=== PATIENT | female | born 1990 | race Caucasian/White ===

== ENCOUNTER → 2022-05-04 11:03 | Outpatient (BNVA) | payer BC, SELFPAY | PROVIDERS: Family Provider Family Medicine; PCP Family Medicine; Visit Provider Obstetrics & Gynecology | DX: N93.9 Abnormal uterine and vaginal bleeding, unspecified (principal) | CPT/HCPCS: 81025; 88305 ==

== ENCOUNTER 2022-05-17 06:54 | Outpatient (CLI) | payer BC, MEDICAID, SELFPAY ==
--- NOTE | 2022-05-17 07:00 | US_ITS ---
WS: [id number] TRANSABDOMINAL PELVIC AND TRANSVAGINAL PELVIC ULTRASOUND HISTORY: N93.9 - Abnormal uterine and vaginal bleeding, unspecified COMPARISON: None available. Uterus: 8.1 cm x 4.4 cm x 3.7 cm. Normal size anteverted uterus. No fibroid or mass. Endometrium: 0.6 cm. Normal size endometrium. No increased vascularity. Small nabothian cysts in the cervix. Right ovary: 2.8 cm x 2.7 cm x 2.1 cm. No mass or increased vascularity. Normal vascularity. Left ovary: 2.0 cm x 1.8 cm x 1.6 cm. Normal size and vascularity. No mass. Trace free fluid in the cul-de-sac is physiologic. US/US pelvic with transvaginal IMPRESSION: 1. Normal endometrium measuring 6 mm. 2. No adnexal mass.
== END 2022-05-17 06:55 | disposition home or self-care (01) ==
LOC: RAD 06:55
PROVIDERS: PCP Family Medicine; Visit Provider Obstetrics & Gynecology
DX: N93.9 Abnormal uterine and vaginal bleeding, unspecified (principal)
CPT/HCPCS: 76830; 76856

== ENCOUNTER 2024-02-22 21:20 | Emergency (ER) | payer MEDICAID, SELFPAY ==
[2024-02-22 21:27] VITALS: BP 152/103; PULSE 91; RESP 18; TEMP 36.7
[2024-02-22 21:55] LABS: Add Urine Microscopic? YES; Bacteria Urine 1+ /hpf; Bilirubin Urine 1+ (Negative); Blood Urine 3+ (Negative); Glucose Urine UA 2+ (Normal); Ketones Urine 1+ (Negative); Leukocyte Esterase Urine 1+ (Negative); Nitrate Urine Positive (Negative); Protein Urine 3+ (Negative); RBC Urine 80-100 /hpf (0-2); Squamous Epithelial Cell Urine 0-4 /hpf (0-5); Urine Appearance Cloudy (CLEAR); Urine Color Red (Yellow); Urobilinogen Urine 1 mg/dL (Negative); pH Urine 5 (5-7)
[2024-02-22 21:56] LABS: Add Urine Culture? Yes
[2024-02-22 22:03] LABS: Basophils % 0.5 %; Eosinophils # 0.3 10^3/uL (0.0-0.8); Eosinophils % 4.2 %; Hematocrit 40.4 % (36-47); Lymphocytes # 1.4 10^3/uL (0.8-4.8); Lymphocytes % 22.7 %; Mean Corpuscular HGB Conc 33.7 g/dL (30-55); Mean Corpuscular Hemoglobin 30.7 pg (27-33); Mean Corpuscular Volume 91.2 fl (85-98); Mean Platelet Volume 9.7 fL (7.4-10.4); Monocytes # 0.4 10^3/uL (0.2-0.9); Monocytes % 6.2 %; Neutrophils # 3.95 10^3/uL (1.8-7.7); Neutrophils % 66.1 %; Nucleated Red Blood Cells % 0 %; Platelet Count 260 10^3/cmm (157-399); Red Blood Count 4.43 10^6/uL (3.85-5.65); Red Cell Distribution Width 12.7 % (12.1-15.1); White Blood Count 5.98 10^3/uL (3.29-11.43)
--- NOTE | 2024-02-22 22:07 | W.ED.ABDPA2 ---
HPI - Abdominal Pain General: Chief Complaint: Abdominal Pain Stated Complaint: Lower abd pain Time Seen by Provider: 02/22/24 21:37 Source: patient Mode of arrival: ambulatory Limitations: no limitations History of Present Illness: 33yo female presents with lower abdominal pain and heavy vaginal bleeding with passage of multiple large clots. Patient reports that she does have a history of PCOS, endometriosis, and ovarian cyst. States that her menstrual cycle did start 2 to 3 days ago and she has been passing larger than normal clots. She reports that her previous menstrual cycle was 2 months ago. She states it is not abnormal for her to have irregular cycles. She reports that she does not currently have a PLASTER MOLD MAKER and her last ultrasound was about 2 years ago. Patient also reports that she does have diabetes and is not currently taking any medications. Patient states that she has been somewhat lightheaded/dizzy with position changes, but she states she also works full-time on her feet and it may be related to that. She denies having to have previous blood transfusion, previous ablation, fever, any other concerns at this time. Associated Symptoms: Denies chills, diarrhea, fever(s) and vomiting Review of Systems Const: Denies: fever(s) or chills GI: Reports: abdominal pain; Denies: vomiting or diarrhea : Reports: change in menstrual flow; Denies: flank pain PFSH ED PFSH: Medical History Bronchitis No pertinent past medical history neghx:htn, thyroid, dvt/pe PCP: Dr. Demarco History of diabetes mellitus Abnormal uterine bleeding (AUB) Surgical History No pertinent past surgical history Family History Father Diabetes Hypertension Mother Diabetes Sister Diabetes Grandmother Breast cancer paternal Denies family history of Colon cancer Ovarian cancer Prostate cancer Heart disease Hyperlipidemia Bleeding disorder Uterine cancer Thyroid disease Stroke Social History Smoking and tobacco/nicotine status: former use of tobacco/nicotine Alcohol intake: current Alcohol intake frequency: holidays/special occasions only Substance/Drug Use: former Adopted: Yes service: No Current occupational exposures/hazards: No Current gender identity: Female Physical Exam Const: COMMON NORMALS: no acute distress and alert GENERAL APPEARANCE: cooperative ORIENTATION/CONSCIOUSNESS: Yes awake OTHER: Patient is sitting upright in a bedside chair in no acute distress. She is interactive with exam appropriately. She is able to give history with no difficulty. No family is at bedside HENMT: COMMON NORMALS: normocephalic HEAD & SCALP: normocephalic MOUTH: Normal oral and palatal mucosa present Chest: CHEST: Yes Symmetrical chest wall rise Resp: COMMON NORMALS: normal respiratory effort and clear to auscultation bilaterally EFFORT & INSPECTION: Yes able to speak in complete sentences AUSCULTATION: clear to auscultation bilaterally Cardio: COMMON NORMALS: regular rate and regular rhythm RATE: regular rate RHYTHM: regular rhythm GI: COMMON NORMALS: Soft to palpation PALPATION: Yes Soft to palpation : COMMON NORMALS: Yes no CVA tenderness BLADDER/KIDNEY EXAM: Yes no CVA tenderness Back/Pelvis: COMMON NORMALS: no CVA tenderness Extremity: COMMON NORMALS: full ROM Neuro: SENSORIUM/ORIENTATION: Yes alert Psych: COMMON NORMALS: cooperative ATTITUDE: Yes calm Course Reevaluation(s): Reevaluation #1: Discussed all findings with patient. Discussed nitrite positive urine indicative of urinary tract infection. Will proceed with treatment for UTI and ketorolac to help with pelvic pain. Patient is agreeable with plan Time: 22:55 Vital Signs: Vital signs: Vital Signs Temperature 98.1 F 02/22/24 21:27 Pulse Rate 91 02/22/24 21:27 Respiratory Rate 18 02/22/24 21:27 Blood Pressure 152/103 02/22/24 21:27 Oxygen Delivery Me thod Room Air 02/22/24 21:27 MDM - Abdominal Pain Medical Decision Making 33yo male here with heavy vaginal bleeding that started 2 to 3 days ago and is passing large clots. Patient does report that her last menstrual cycle was 2 months ago and she does have irregular cycles. She states a history of PCOS, endometriosis, and ovarian cysts. Patient does report cramping pain to the suprapubic area, consistent with her cycles. She does report that she has become somewhat lightheaded/dizzy with position changes, but is not certain if it is related to the bleeding or due to working long hours on her feet. Patient denies fever, chills, body aches, recent illness, any other concern at this time. Patient is nontoxic in appearance. Vital signs are stable. Differential diagnosis includes but is not limited to: Abnormal uterine bleeding, miscarriage, acute blood loss, endometriosis, ovarian cyst, ovarian torsion, UTI CBC is grossly unremarkable. CMP with a sodium of 135 and glucose of 261, otherwise unremarkable. UA with 2+ glucose, 3+ protein, 3+ blood, nitrite positive, 1+ leukocytes. Urine microscopy with 1+ bacteria and 5-10 white blood cells. Urine culture is currently pending. Given that the patient's hemoglobin is stable as well as the presence of a UTI to account for the increased discomfort, we are deferring the ultrasound today. Patient did receive ketorolac to help with discomfort and cefdinir to begin treatment for urinary tract infection. Discussed with patient that we would notify her if we did need to change our antibiotic. Recommend increasing fluid intake and continue to monitor symptoms. Advised to follow-up with primary care, call next week with an update of symptoms and to discuss a recheck. Recommend return to the emergency department if any rapid worsening symptoms, increasing bleeding so that they are saturating 2-3 pads an hour, onset of fever/chills/vomiting with worsening symptoms, and as needed. Patient states understanding and has no further questions or concerns at this time. Medical Records I reviewed the patient's medical records. Lab Data I reviewed the patient's lab results. 02/22/24 21:58 02/22/24 21:58 Labs/Radiology: Laboratory Results WBC 5.98 10^3/uL (3.29-11.43) 02/22/24 21:58 RBC 4.43 10^6/uL (3.85-5.65) 02/22/24 21:58 Hgb 13.60 g/dL (11.27-16.99) 02/22/24 21:58 Hct 40.4 % (36-47) 02/22/24 21:58 MCV 91.2 fl (85-98) 02/22/24 21:58 MCH 30.7 pg (27-33) 02/22/24 21:58 MCHC 33.7 g/dL (30-55) 02/22/24 21:58 RDW 12.7 % (12.1-15.1) 02/22/24 21:58 Plt Count 260 10^3/cmm (157-399) 02/22/24 21:58 MPV 9.7 fL (7.4-10.4) 02/22/24 21:58 Neut % (Auto) 66.1 % 02/22/24 21:58 Lymph % (Auto) 22.7 % 02/22/24 21:58 [place] % (Auto) 6.2 % 02/22/24 21:58 Eos % (Auto) 4.2 % 02/22/24 21:58 Baso % (Auto) 0.5 % 02/22/24 21:58 Neut # (Auto) 3.95 10^3/uL (1.8-7.7) 02/22/24 21:58 Lymph # (Auto) 1.4 10^3/uL (0.8-4.8) 02/22/24 21:58 [place] # (Auto) 0.4 10^3/uL (0.2-0.9) 02/22/24 21:58 Eos # (Auto) 0.3 10^3/uL (0.0-0.8) 02/22/24 21:58 Baso # (Auto) 0.0 10^3/uL (0.0-0.1) 02/22/24 21:58 Nucleated RBC % (auto) 0 % 02/22/24 21:58 Nucleated RBCs # 0.0 /100WBC 02/22/24 21:58 Sodium 135 mmol/L (136-145) L 02/22/24 21:58 Potassium 3.8 mmol/L (3.5-5.1) 02/22/24 21:58 Chloride 99 mmol/L (98-107) 02/22/24 21:58 Carbon Dioxide 25 mmol/L (22-29) 02/22/24 21:58 Anion Gap 14.8 (5-19) 02/22/24 21:58 BUN 9 mg/dL (6-20) 02/22/24 21:58 Creatinine 0.6 mg/dL (0.5-0.9) 02/22/24 21:58 GFR Calculation 115.1 mL/min (90-130) 02/22/24 21:58 Glucose 261 mg/dL (65-115) H 02/22/24 21:58 Calculated Osmolality 288 mOsm/kg (285-295) 02/22/24 21:58 Calcium 9.2 mg/dL (8.5-10.5) 02/22/24 21:58 Total Bilirubin 0.3 mg/dL (0.15-1.2) 02/22/24 21:58 AST 28 U/L (0-32) 02/22/24 21:58 ALT 32 U/L (0-33) 02/22/24 21:58 Alkaline Phosphatase 85 U/L (35-105) 02/22/24 21:58 Total Protein 7.3 g/dL (6.6-8.7) 02/22/24 21:58 Albumin 4.0 g/dL (3.5-5.2) 02/22/24 21:58 Globulin 3.3 g/dL (1.3-4.6) 02/22/24 21:58 Lipase 37 U/L (13-60) 02/22/24 21:58 HCG, Qual Negative (Negative) 02/22/24 21:58 Urine Color Red (Yellow) A 02/22/24 21:40 Urine Appearance Cloudy (CLEAR) A 02/22/24 21:40 Urine pH 5 (5-7) 02/22/24 21:40 Ur Specific [place] 1.030 (1.005-1.030) 02/22/24 21:40 Urine Protein 3+ (Negative) H 02/22/24 21:40 Urine Glucose (UA) 2+ (Normal) H 02/22/24 21:40 Urine Ketones 1+ (Negative) H 02/22/24 21:40 Urine Blood 3+ (Negative) H 02/22/24 21:40 Urine Nitrate Positive (Negative) H 02/22/24 21:40 Urine Bilirubin 1+ (Negative) H 02/22/24 21:40 Urine Urobilinogen 1 mg/dL (Negative) H 02/22/24 21:40 Ur Leukocyte Esterase 1+ (Negative) H 02/22/24 21:40 Urine RBC 80-100 /hpf (0-2) H 02/22/24 21:40 Urine WBC 5-10 /hpf (0-5) H 02/22/24 21:40 Ur Squamous Epith Cells 0-4 /hpf (0-5) H 02/22/24 21:40 Amorphous Sediment Not Reportable 02/22/24 21:40 Urine Bacteria 1+ /hpf (NONE) H 02/22/24 21:40 No radiology studies performed this visit Discharge Plan Discharge Patient Disposition: Home Clinical Impression: Acute cystitis with hematuria, Abnormal uterine bleeding (AUB) Condition: Stable Prescriptions: New ketorolac 10 mg tablet 10 mg PO Q6H PRN (Reason: pain) 5 Days Qty: 20 0RF cefdinir 300 mg capsule 300 mg PO BID Qty: 7 0RF Discontinued ondansetron HCl 8 mg tablet 8 mg PO Q12H PRN (Reason: nausea and vomiting) Qty: 7 0RF Discharge Orders: Discharge ED (Routine); Ordered 02/22/24 Ordered By: Marin Salomon Referrals: Mariam Wagner MD [Primary Care Provider] - Discharge Diet: Usual diet Discharge Activity: Resume usual activity Patient Instructions: Abnormal (Dysfunctional) Uterine Bleeding (ED), Urinary Tract Infection in Women (ED) Activity Restrictions/Additional Instructions: Your urine is concerning for urinary tract infection. Cefdinir has been sent to the pharmacy to begin treatment for the UTI. You did receive your first dose while in the emergency department Ketorolac has been sent to your pharmacy to help with pain from the UTI and the crampy uterine pain. This medication does not impede you in any way. You may still drive and take care of your children as needed Increase your fluid intake and continue to monitor your symptoms Follow-up with your doctor for recheck in about a week for the urinary tract infection and ER follow-up, sooner if needed Return to the emergency department if any rapid worsening symptoms, worsening vaginal bleeding, onset of fever/chills/vomiting, and as needed Stand Alone Forms: Work/School Release Coding Level of Care Code ED Relief Driller for Estephania Jack
[2024-02-22 22:17] LABS: HCG, Serum Qual Negative (Negative)
[2024-02-22 22:23] LABS: Alanine Aminotransferase 32 U/L (0-33); Alkaline Phosphatase 85 U/L (35-105); Anion Gap 14.8 (5-19); Aspartate Amino Transferase 28 U/L (0-32); Blood Urea Nitrogen 9 mg/dL (6-20); Calcium 9.2 mg/dL (8.5-10.5); Carbon Dioxide 25 mmol/L (22-29); Chloride 99 mmol/L (98-107); Creatinine Clr Calc Pharmacy 182.7775; Globulin 3.3 g/dL (1.3-4.6); Glomerular Filtration Rate 115.1 mL/min (90-130); Glucose 261 mg/dL (65-115); Lipase 37 U/L (13-60); Osmolality Calculated 288 mOsm/kg (285-295); Potassium 3.8 mmol/L (3.5-5.1); Sodium 135 mmol/L (136-145); Total Bilirubin 0.3 mg/dL (0.15-1.2); Total Protein 7.3 g/dL (6.6-8.7)
[2024-02-22] MEDS: cefdinir 300 MG CAPSULE PO (23:15)
[2024-02-22] MEDS: ketorolac 30 mg/mL INJ 15 MG IVP (23:15)
== END 2024-02-23 00:15 | disposition home or self-care (01) ==
PROVIDERS: Emergency Medicine; Emergency Provider Nurse Practitioner; PCP Family Medicine
DX: N93.9 Abnormal uterine and vaginal bleeding, unspecified (principal); N30.01 Acute cystitis with hematuria; Z87.891 Personal history of nicotine dependence
CPT/HCPCS: 80053; 81001; 83690; 84703; 85025; 87086; 96374; 99284; J1885

== ENCOUNTER → 2024-05-15 15:22 | Outpatient (BNVA) | payer MEDICAID, SELFPAY | PROVIDERS: PCP Family Medicine; Visit Provider Nurse Practitioner Women's Health | DX: N93.9 Abnormal uterine and vaginal bleeding, unspecified (principal); N88.8 Other specified noninflammatory disorders of cervix uteri | CPT/HCPCS: 76830 ==

== ENCOUNTER → 2024-05-16 11:02 | Outpatient (BNVA) | payer MEDICAID, SELFPAY | PROVIDERS: PCP Family Medicine; Visit Provider Family Medicine | DX: R39.9 Unspecified symptoms and signs involving the genitourinary system (principal); Z32.00 Encounter for pregnancy test, result unknown; N80.9 Endometriosis, unspecified | CPT/HCPCS: 81000; 81025 ==

== ENCOUNTER → 2025-06-10 07:51 | Outpatient (BNVA) | payer BC, MEDICAID, SELFPAY | PROVIDERS: PCP Family Medicine; Visit Provider Nurse Practitioner Women's Health | DX: N92.6 Irregular menstruation, unspecified (principal); N88.8 Other specified noninflammatory disorders of cervix uteri; N83.01 Follicular cyst of right ovary | CPT/HCPCS: 76830 ==

== ENCOUNTER 2025-06-23 12:50 | Emergency (ER) | payer MEDICAID, SELFPAY ==
--- OUTSIDE RECORDS SUMMARY | 2025-06-23 12:54 | XMS_ITS | Encounter Summary ---
Author Organization [facility] Address [address] [place] [address] Care Team Providers Care Retail Client Solutions Analyst Name Role Phone Unavailable Primary Care Provider Unavailabl e Encounter Details Date Type Department Care Team (Latest Contact Info) Description 08/30/2001 Outpatient Historical [address] [phone] Viviana Delgadillo MD [address], [address] Attention deficit disorder with hyperactivity(314.01 ) (Primary Dx) Social History Tobacco Use Types Packs/Day Years Used Date Smoking Tobacco: Never Assessed Comments Unknown Sex and Gender Information Value Date Recorded Sex Assigned at Not on file 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
--- OUTSIDE RECORDS SUMMARY | 2025-06-23 12:54 | XMS_ITS | Encounter Summary ---
Author Organization [facility] Address [address] [place] [address] Care Team Providers Care Manager Testing Name Role Phone Unavailable Primary Care Provider Unavailabl e Encounter Details Date Type Department Care Team (Latest Contact Info) Description 10/31/2001 Outpatient Historical [address] [phone] Viviana Delgadillo MD [address], [address] ATTN DEFICIT W HYPERACT (Primary Dx); ACUTE PHARYNGITIS Social History Tobacco Use Types Packs/Day Years Used Date Smoking Tobacco: Never Assessed Comments Unknown Sex and Gender Information Value Date Recorded Sex Assigned at Not on file 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
--- OUTSIDE RECORDS SUMMARY | 2025-06-23 12:54 | XMS_ITS | Encounter Summary ---
Author Organization [facility] Address [address] [place] [address] Care Team Providers Care Senior Microsoft Consultant Name Role Phone Unavailable Primary Care Provider Unavailabl e Encounter Details Date Type Department Care Team (Latest Contact Info) Description 12/17/2002 Outpatient Historical [facility] [place] [address] [phone] Joan Ortiz MD [address] [place] [address] VACCINE FOR DISEASE NEC (Primary Dx) Social History Tobacco Use Types Packs/Day Years Used Date Smoking Tobacco: Never Assessed Comments Unknown Sex and Gender Information Value Date Recorded Sex Assigned at Not on file 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
--- OUTSIDE RECORDS SUMMARY | 2025-06-23 12:54 | XMS_ITS | Encounter Summary ---
Author Organization [facility] Address [address] [place] [address] Care Team Providers Care Loop Drier Operator Name Role Phone Unavailable Primary Care Provider Unavailabl e Encounter Details Date Type Department Care Team (Latest Contact Info) Description 09/01/2003 Outpatient Historical [facility] [address], [place] [phone] Jose Caicedo MD [address] [place] [phone] ATTN DEFICIT NONHYPERACT (Primary Dx); ACUTE BRONCHITIS; TRACHEA/BRONCHUS DIS NEC Social History Tobacco Use Types Packs/Day Years Used Date Smoking Tobacco: Never Assessed Comments Unknown Sex and Gender Information Value Date Recorded Sex Assigned at Not on file 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
--- OUTSIDE RECORDS SUMMARY | 2025-06-23 12:54 | XMS_ITS | Clinical Summary ---
Author Organization [facility] Address [address] [facility] [address] [place] [address] Phone Care Team Providers Care Feller Hand Name Role Phone Unavailable Primary Care Provider Unavailabl e Allergies No known active allergies Medications venlafaxine (EFFEXOR) 37.5 mg tablet Take 37.5 mg by mouth daily. Active ibuprofen (MOTRIN) 200 mg tablet Take 3 Tablets (600 mg) by mouth 3 times daily as needed for Pain. 0 Active penicillin V potassium (VEETID) 500 mg tablet Take 1 Tablet (500 mg) by mouth 4 times daily. 30 Tablet 0 Active chlorhexidine gluconate 0.12 % Mouthwash Swish and expectorate 15 ml at least twice daily after brushing teeth. 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 Gender Identity Not on file Sexual Orientation Not on file Last Filed Vital Signs Vital Sign Reading Time Taken Comments Blood Pressure 113/78 03/24/2021 1:45 PM CDT Pulse 81 07/16/2019 7:20 PM CDT Temperature 36.3 C (97.4 F) 03/24/2021 12:37 PM CDT Respiratory Rate 18 03/24/2021 1:45 PM CDT Oxygen Saturation 98% 03/24/2021 1:45 PM CDT Inhaled Oxygen Concentration - - Weight 139.7 kg (307 lb 15.7 oz) 2020 12:37 PM CDT Height 165.1 cm (5' 5 ) 03/24/2021 12:3 7 PM CDT Body Mass Index 51.25 03/24/2021 12:37 PM CDT Plan of Treatment Health Maintenance Due Date Last Done Comments HPV VACCINES (1 - 3-dose series) 2005 DTAP/TDAP/TD VACCINES (1 - Tdap) 2009 HPV/Cotest (21-29) 2011 CERVICAL CANCER SCREENING 2020 HPV/Cotest (30-65) 2020 PAP SMEAR 2020 INFLUENZA VACCINE (#1) 2025 HEPATITIS B VACCINES Completed 12/17/2002, 07/24/2002, 06/19/2002 Insurance [place]ICAID [place]
--- OUTSIDE RECORDS SUMMARY | 2025-06-23 12:54 | XMS_ITS | Encounter Summary ---
Author Organization [facility] Address [address] [place] [address] Care Team Providers Care Rib Cloth Knitter Name Role Phone Unavailable Primary Care Provider Unavailabl e Encounter Details Date Type Department Care Team (Latest Contact Info) Description 01/26/2005 Outpatient Historical [facility] [place] [address] [phone] Jess Perez, [facility] [address] [facility] [address] [place] [address] ATTN DEFICIT W HYPERACT (Primary Dx); OPPOSITIONAL DEFIANT DISORDER Social History Tobacco Use Types Packs/Day Years Used Date Smoking Tobacco: Never Assessed Comments Unknown Sex and Gender Information Value Date Recorded Sex Assigned at Not on file 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
--- OUTSIDE RECORDS SUMMARY | 2025-06-23 12:54 | XMS_ITS | Encounter Summary ---
Author Organization [facility] Address [address] [place] [address] Care Team Providers Care Wooden Boat Builder Name Role Phone Unavailable Primary Care Provider Unavailabl e Encounter Details Date Type Department Care Team (Latest Contact Info) Description 01/05/2005 Outpatient Historical [facility] Medicine [place] [address] [phone] Jess Perez, [facility] [address] 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
--- OUTSIDE RECORDS SUMMARY | 2025-06-23 12:54 | XMS_ITS | Encounter Summary ---
Author Organization [facility] Address [address] [place] [address] Care Team Providers Care Match Maker Name Role Phone Unavailable Primary Care Provider Unavailabl e Encounter Details Date Type Department Care Team (Latest Contact Info) Description 04/22/2003 Outpatient Historical [facility] [address], [place] [phone] Jose Caicedo MD [address] [place] [phone] ACUTE FRONTAL SINUSITIS (Primary Dx); ATTN DEFICIT NONHYPERACT; ALLERGY, UNSPECIFIED Social History Tobacco Use Types Packs/Day Years Used Date Smoking Tobacco: Never Assessed Comments Unknown Sex and Gender Information Value Date Recorded Sex Assigned at Not on file 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
--- OUTSIDE RECORDS SUMMARY | 2025-06-23 12:54 | XMS_ITS | Encounter Summary ---
Author Organization [facility] Address [address] [place] [address] Care Team Providers Care Ply Cutter Name Role Phone Unavailable Primary Care Provider Unavailabl e Encounter Details Date Type Department Care Team (Latest Contact Info) Description 12/18/2002 Outpatient Historical [facility] [address] [phone] Jose Caicedo MD [address] [place] [phone] ATTN DEFICIT W HYPERACT (Primary Dx); SPRAIN OF ANKLE NOS Social History Tobacco Use Types Packs/Day Years Used Date Smoking Tobacco: Never Assessed Comments Unknown Sex and Gender Information Value Date Recorded Sex Assigned at Not on file 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
--- OUTSIDE RECORDS SUMMARY | 2025-06-23 12:54 | XMS_ITS | Encounter Summary ---
Author Organization [facility] Address [address] [place] [address] Care Team Providers Care Information Technology Instructor Name Role Phone Unavailable Primary Care Provider Unavailabl e Encounter Details Date Type Department Care Team (Latest Contact Info) Description 06/18/[address] 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
--- OUTSIDE RECORDS SUMMARY | 2025-06-23 12:54 | XMS_ITS | Encounter Summary ---
Author Organization [facility] Address [address] [place] [address] Care Team Providers Care Brisket Puller Name Role Phone Unavailable Primary Care Provider Unavailabl e Encounter Details Date Type Department Care Team (Latest Contact Info) Description 11/30/2001 Outpatient Historical [facility] [address] [phone] Joan Ortiz MD [address] [place] [address] NASAL & SINUS DIS NEC (Primary Dx); NONINFEC GASTROENTERIT NEC Social History Tobacco Use Types Packs/Day Years Used Date Smoking Tobacco: Never Assessed Comments Unknown Sex and Gender Information Value Date Recorded Sex Assigned at Not on file 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
--- OUTSIDE RECORDS SUMMARY | 2025-06-23 12:54 | XMS_ITS | Encounter Summary ---
Author Organization [facility] Address [address] [place] [address] Care Team Providers Care Maintenance Operator Name Role Phone Unavailable Primary Care Provider Unavailabl e Encounter Details Date Type Department Care Team (Latest Contact Info) Description 12/29/2004 Outpatient Historical [facility] [place] [address] [phone] Jess Perez, [facility] [address] [facility] [address] [place] [address] ATTN DEFICIT W HYPERACT (Primary Dx); OPPOSITIONAL DEFIANT DISORDER Social History Tobacco Use Types Packs/Day Years Used Date Smoking Tobacco: Never Assessed Comments Unknown Sex and Gender Information Value Date Recorded Sex Assigned at Not on file 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
--- OUTSIDE RECORDS SUMMARY | 2025-06-23 12:54 | XMS_ITS | Encounter Summary ---
Author Organization [facility] Address [address] [place] [address] Care Team Providers Care Flame Cutter Name Role Phone Unavailable Primary Care Provider Unavailabl e Encounter Details Date Type Department Care Team (Latest Contact Info) Description 07/24/2002 Outpatient Historical [address] [phone] Viviana Delgadillo MD [address], [address] TRACHEA/BRONCHUS DIS NEC (Primary Dx); ACUTE FRONTAL SINUSITIS; VACCINE FOR DISEASE NEC Social History Tobacco Use Types Packs/Day Years Used Date Smoking Tobacco: Never Assessed Comments Unknown Sex and Gender Information Value Date Recorded Sex Assigned at Not on file 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
--- OUTSIDE RECORDS SUMMARY | 2025-06-23 12:54 | XMS_ITS | Encounter Summary ---
Author Organization [facility] Address [address] [place] [address] Care Team Providers Care Zigzagger Name Role Phone Unavailable Primary Care Provider Unavailabl e Encounter Details Date Type Department Care Team (Latest Contact Info) Description 09/26/2002 Outpatient Historical [address] [phone] Viviana Delgadillo MD [address] [place] [address], [address] ACUTE URI NOS (Primary Dx); ALLERGIC RHINITIS NOS; DERMATITIS NOS Social History Tobacco Use Types Packs/Day Years Used Date Smoking Tobacco: Never Assessed Comments Unknown Sex and Gender Information Value Date Recorded Sex Assigned at Not on file 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
--- OUTSIDE RECORDS SUMMARY | 2025-06-23 12:54 | XMS_ITS | Encounter Summary ---
Author Organization [facility] Address [address] [place] [address] Care Team Providers Care Clinical Nurse Occupational Medicine Name Role Phone Unavailable Primary Care Provider Unavailabl e Encounter Details Date Type Department Care Team (Latest Contact Info) Description 06/19/2002 Outpatient Historical [address] [phone] Viviana Delgadillo MD [address], [address] ATTN DEFICIT W HYPERACT (Primary Dx); VACCINE FOR DISEASE NEC Social History Tobacco Use Types Packs/Day Years Used Date Smoking Tobacco: Never Assessed Comments Unknown Sex and Gender Information Value Date Recorded Sex Assigned at Not on file 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
--- OUTSIDE RECORDS SUMMARY | 2025-06-23 12:54 | XMS_ITS | Encounter Summary ---
Author Organization [facility] Address [address] [place] [address] Care Team Providers Care Upper Cutter Out Name Role Phone Unavailable Primary Care Provider Unavailabl e Encounter Details Date Type Department Care Team (Latest Contact Info) Description 01/01/2003 Outpatient Historical [facility] [address] [phone] Jose Caicedo MD [address] [place] [phone] ATTN DEFICIT W HYPERACT (Primary Dx) Social History Tobacco Use Types Packs/Day Years Used Date Smoking Tobacco: Never Assessed Comments Unknown Sex and Gender Information Value Date Recorded Sex Assigned at Not on file 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
--- OUTSIDE RECORDS SUMMARY | 2025-06-23 12:54 | XMS_ITS | Clinical Summary ---
Author Organization Sharon [facility] Address [address] [place] [address] Phone Care Team Providers Care Conference Manager Name Role Phone Franck Baltazar MD Primary Care Provider [phone] Allergies No known active allergies Medications Insulin Colon, Disposable, (TechLITE Pen Needle) 31 gauge x 3/16 Needle USE DIRECTED ONCE DAILY WITH INSULIN 100 Each 2 07/26/20 22 Active lancets (OneTouch Delica Plus Lancet) 30 gauge Use to test blood sugar once daily. 100 Each 2 09/16/20 24 Active empagliflozin (Jardiance) 10 mg tabletIndicatio ns:Type 2 diabetes mellitus with hyperglycemia, without long-term current use of insulin ([facility]) Take 1 Tablet (10 mg) by mouth daily in the morning. 100 Tablet 3 04/04/20 25 Active blood sugar diagnostic (OneTouch Ultra Test) StripIndication s:Type 2 diabetes mellitus with hyperglycemia, without long-term current use of insulin ([facility]) Use to test fasting blood sugars once daily 100 Each 2 04/24/20 25 Active albuterol sulfate HFA 90 mcg/actuation aerosol inhalerIndicati ons:Cough, unspecified type Take 2 Puffs by inhalation every 4 hours as needed for Shortness of Breath (cough). 8.5 Gram 1 04/24/20 25 Active Blood-Glucose Meter KitIndications: Type 2 diabetes mellitus without complication, without long-term current use of insulin ([facility]) True metrix- Monitor fasting blood sugars once daily 1 Kit 04/24/20 25 Active ondansetron (ZOFRAN ODT) 8 mg Tablet, Rapid Dissolve DISSOLVE 1 TABLET IN MOUTH ONCE DAILY NEEDED FOR NAUSEA AND VOMITING FOR 5 DAYS 05/19/20 25 Active True Metrix Air Glucose Meter Monitor fasting blood sugars ONCE daily 04/24/20 25 Active semaglutide (Ozempic) 0.25 mg or 0.5 mg (2 mg/3 mL) Pen InjectorIndicat ions:Type 2 diabetes mellitus with hyperglycemia, without long-term current use of insulin ([facility]) Inject 0.5 mg by subcutaneous injection every 7 days. Increase to 0.5mg after 4 weeks 9 mL 3 05/26/20 25 Active glipiZIDE (GLUCOTROL) 10 mg tabletIndicatio ns:Type 2 diabetes mellitus with hyperglycemia, without long-term current use of insulin (CMS/HCC) Take 2 Tablets (20 mg) by mouth 2 times daily with meals. 120 Tablet 11 05/26/20 25 Active glipiZIDE (GLUCOTROL) 10 mg tabletIndicatio ns:Type 2 diabetes mellitus with hyperglycemia, without long-term current use of insulin ([facility]) Take 2 Tablets (20 mg) by mouth 2 times daily with meals. 120 Tablet 11 07/14/20 24 025 Discontinu ed(Reorder ) semaglutide (Ozempic) 0.25 mg or 0.5 mg (2 mg/3 mL) Pen InjectorIndicat ions:Type 2 diabetes mellitus with hyperglycemia, without long-term current use of insulin ([facility]) Inject 0.25 mg by subcutaneous injection every 7 days. Increase to 0.5mg after 4 weeks 9 mL 3 04/24/20 25 025 Discontinu ed(Reorder ) sulfamethoxazol e-trimethoprim (BACTRIM DS) 800-160 mg tabletIndicatio ns:Acute cystitis without hematuria Take 1 Tablet by mouth 2 times daily for 7 days. 14 Tablet 05/28/20 25 025 Active Problems Problem Noted Date Diagnosed Date Morbid obesity with BMI of 45.0-49.9, adult 02/19 Chest congestion 08/25/2023 Chest pain at rest 08/25/2023 Type 2 diabetes mellitus wit h hyperglycemia, without long-term current use of insulin 12/15/2021 Encounters Date Type Department Care Team Description 06/04/2025 External Device Data [facility] AB[facility]CTION Provider, Abstract 05/28/[address] [phone] Timur, Crystal Griselda, SKIN CARE CONSULTANT Acute cystitis without hematuria (Primary Dx) 05/26/2025 1:40 PM CDT Office Visit [address] [phone] Timur, Crystal Griselda, SKIN CARE CONSULTANT Vaginal discharge (Primary Dx); Type 2 diabetes mellitus with hyperglycemia, without long-term current use of insulin ([facility]); Dysuria; Screening for diabetes mellitus; Other microscopic hematuria 05/26/2025 Results Follow-Up [place] [phone] Timur, Crystal Griselda, SKIN CARE CONSULTANT POC URINALYSIS DIPSTICK AUTOMATED, VAGINOSIS/VAGINITIS PANEL PLUS, URINE CULTURE 05/23/2025 Refill [place] [phone] Franck Baltazar MD Type 2 diabetes mellitus with hyperglycemia, without long-term current use of insulin ([facility]) 05/20/2025 External Device Data [facility] ABSTRACTION Provider, Abstract 05/09/2025 Telephone [place] [phone] Timur, Crystal Griselda, SKIN CARE CONSULTANT Medication Assistance; Patient Communication 05/09/2025 Telephone [place] [phone] Timur, Crystal Griselda, SKIN CARE CONSULTANT Medication Review; Patient Communication; Question 05/03/[address] [phone] Amy Bingham RN [facility] [employer] Techn[employer] 04/28/2025 Results Follow-Up [address] [phone] Timur, Crystal Griselda, SKIN CARE CONSULTANT VAGINOSIS/VAGINITIS PANEL PLUS 04/28/[address] [place] [phone] Viktoria Ding FNP Results 04/25/2025 Medication Prior Auth Encounter [address] [place] [phone] Viktoria Ding FNP 04/25/[address] [place] [phone] Franck Baltazar MD Information 04/24/2025 10:00 AM CDT Office Visit [address] [place] [phone] Viktoria Ding FNP Type 2 diabetes mellitus with hyperglycemia, without long-term current use of insulin ([facility]) (Primary Dx); Vaginal odor 04/24/2025 Orders Only [address] [place] [phone] Viktoria Ding FNP Type 2 diabetes mellitus without complication, without long-term current use of insulin ([facility]) (Primary Dx) 04/24/2025 Orders Only [address] [place] [phone] Swapnil Morris Type 2 diabetes mellitus without complication, without long-term current use of insulin ([facility]) 04/24/2025 Orders Only [address] [place] [phone] Swapnil Morris Cough, unspecified type 04/24/[address] [place] [phone] Viktoria Ding FNP Patient Communication 04/21/2025 Results Follow-Up [address] [place] [phone] Hammond, Monae Sole, SKIN CARE CONSULTANT VAGINOSIS/VAGINITIS PANEL PLUS 04/17/2025 1:40 PM CDT Office Visit [facility] [address] [phone] Monae Hammond, SKIN CARE CONSULTANT Vaginal odor (Primary Dx) 04/10/2025 Telephone [facility] [address] [place] [phone] Lelia Rock RN [facility] [employer] Technician 04/10/2025 Results Follow-Up [facility] [address] [phone] Franck Baltazar MD LIPID PANEL, COMPREHENSIVE METABOLIC PANEL, CBC WITH DIFFERENTIAL, Additional followed-up results: 2 04/10/[address] [phone] Franck Baltazar MD Results 04/09/2025 Patient Outreach [facility] [phone] [place] [phone] John Raya Referral; Employment Concerns; Housing Assistance; Healthcare Access; Insurance Coverage; Medication Assistance 04/04/2025 8:00 AM CDT Office Visit [address] [phone] Viktoria Ding, SKIN CARE CONSULTANT Type 2 diabetes mellitus with hyperglycemia, without long-term current use of insulin ([facility]) (Primary Dx); Dysfunctional uterine bleeding; Homelessness; Morbid obesity with BMI of 45.0-49.9, adult ([facility]) 04/04/2025 Patient Outreach [facility] [address] [phone] John Raya Referral; Medication Assistance 04/04/[address] [phone] Franck Baltazar MD Medication Assistance 04/04/[address] [phone] Timur, Viktoria Villalobos, RADHA Information from Last 3 Months Immunizations Immunization Administration Dates Next Due (ADACEL/BOOSTRIX)(10 YR UP) TDAP VACCINE, 0.5ML, IM 12/05/2016 (HAVRIX/VAQTA)(12 MO-18 YRS) HEPATITIS A VACCINE 0.5 ML PED/ADOL 2 DOSE, IM 07/14/2009,07/04/2005 (IPOL)(6 WKS AND UP) POLIOVI RAMON VACCINE, INACTIVATED (IPV), 3 DOSE, SUBCUT OR IM 06/16/1995,09/17/1993,12/31/1991,06/20,05/03/1991 (M-M-R II/PRIORIX)(12 MO UP) MEASLES, MUMPS AND RUBELLA VIRUS VACCINE, 0.5 ML IM/SUBCUT 06/16/1995,09/17/1993 (TDVAX)(7 YRS UP) TETANUS AN D DIPHTHERIA TOXOIDS, ADSORBED (2 LF OF TETANUS TOXOID AND 2 LF OF DIPHTHERIA TOXOID), 0.5ML (PF), IM 07/04/2005 Diptheria, Tetanus Toxoids, And Whole Cell Pertussis Vaccine (DTP), for intramuscular use 06/16/1995,09/17/1993,12/31/1991,09/20,05/03/1991 HIB, Unspecified Formulation 09/17/1993,12/31/18 92,05/03/1991 HPV, Unspecified Formulation 10/19/2009,07/14/20 09 Hepatitis B Vaccine 12/17/2002,07/24/2002,2001 Hepatitis B Vaccine, Unspeci fied Formulation 12/17/2002,07/24/2002,06/19/2002 Family History Medical History Relation Name Comments Diabetes Father Darrell Diabetes Mother Viky Depression Sister 1 Faydra Diabetes Sister 2 Faydra lay Relation Name Status Comments Father Darrell Mother Viky Sister 1 Faydra Sister 2 Faydra lay Social History Tobacco Use Types Packs/Day Years Used Date Smoking Tobacco: Former Cigarettes 0.5 10 Smokeless Tobacco: Never Tobacco Cessation:Counseling Given: No Alcohol Use Standard Drinks/Week Comments Not Currently 0 (1 standard drink = 0.6 oz pur e alcohol) occasionally Comments No Sex and Gender Information Value Date Recorded Sex Assigned at Not on file Legal Sex Female 8:29 AM [employer] Gender Identity Not on file Sexual Orientation Not on file Last Filed Vital Signs Vital Sign Reading Time Taken Comments Blood Pressure 112/86 05/26/2025 1:35 PM CDT Pulse 88 05/26/2025 1:35 PM CDT Temperature 36.4 C (97.5 F) 05/26/2025 1:35 PM CDT Respiratory Rate 18 05/26/2025 1:35 PM CDT Oxygen Saturation 99% 05/26/2025 1:35 PM CDT Inhaled Oxygen Concentration - - Weight 135 kg (297 lb 9.6 oz) 05/26/2025 1:35 PM CDT Height 165.1 cm (5' 5 ) 05/26/2025 1:35 PM CDT Body Mass Index 49.52 05/26/2025 1:35 PM CDT Plan of Treatment Upcoming Encounters Date Type Department Care Team (Late st Contact Info) Description 07/04/2025 8:00 AM CDT Office Visit [facility] [address] [phone] TimurViktoria moody, [facility] [address] [phone] Health Maintenance Due Date Last Done Comments HPV VACCINES (3 - 3-dose series) 01/14/2010 10/19/20 09, 07/14/2009 Preventative Visit- Commercial 11/20/2024 04/06/2022 PAP SMEAR 04/06/2025 04/06/2022 INFLUENZA VACCINE (#1) 2025 , 10/26/2023, 10/20/2022, Additional history exists DIABETES: A1C (Auto Order) 07/05/202504/04, 09/12/2024, 05/31/2024, Additional history exists DIABETES ANNUAL RETINAL EXAM 09/27/2025 09/27/2024, 01/20/2022 DIABETES HBA1C Q 6 MONTHS 10/05/20252024, 09/12/2024, 05/31/2024, Additional history exists DIABETES ANNUAL FOOT EXAM 04/04/20262024, 10/26/2023, 01/12/2022 DIABETES MICROALBUMIN ANNUAL SCREEN 04/04/2026 04/04/2025, 09/12/2024, 03/22/2024, Additional history exists LDL CHOLESTEROL ANNUAL 04/04/2026 , 10/20/2022, 11/24/2021 DTAP/TDAP/TD VACCINES (7 - T d or Tdap) 12/05/2026 12/05/2016, 07/04/2005, 06/16/1995, Additional history exists CERVICAL CANCER SCREENING 04/06/2027 HPV/Cotest (21-29) 04/06/2027 04/06/2022 HPV/Cotest (30-65) 04/06/2027 04/06/2022 HEPATITIS B VACCINES Completed 12/17/2002, 12/17/2002, 07/24/2002, Additional history exists Procedures Procedure Name Priority Date/Time Associated Diagnosis Comments URINE CULTURE Routine 05/26/2025 3:27 PM CDT Other microscopic hematuria POC URINALYSIS DIPSTICK AUTOMATED Routine 05/26/2025 3:11 PM CDT Dysuria VAGINOSIS/VAGINITIS PANEL PLUS Routine 05/26/2025 3:00 PM CDT Vaginal discharge VAGINOSIS/VAGINITIS PANEL PLUS Routine 04/24/2025 1:05 PM CDT Vaginal odor VAGINOSIS/VAGINITIS PANEL PLUS Routine 04/17/2025 3:15 PM CDT Vaginal odor MICROALBUMIN/CREATINI NE RATIO, RANDOM UR Routine 04/04/2025 8:40 AM CDT Type 2 diabetes mellitus with hyperglycemia, without long-term current use of insulin ([facility]) HEMOGLOBIN A1C Routine 04/04/2025 8:27 AM CDT Type 2 diabetes mellitus with hyperglycemia, without long-term current use of insulin ([facility]) CBC WITH DIFFERENTIAL Routine 04/04/2025 8:27 AM CDT Type 2 diabetes mellitus with hyperglycemia, without long-term current use of insulin ([facility]) COMPREHENSIVE METABOLIC PANEL Routine 04/04/2025 8:27 AM CDT Type 2 diabetes mellitus with hyperglycemia, without long-term current use of insulin ([facility]) LIPID PANEL Routine 04/04/2025 8:27 AM CDT Type 2 diabetes mellitus with hyperglycemia, without long-term current use of insulin ([facility]) CERV/VAG CYTO AGE BASED SCREEN PAP Routine 04/06/2022 10:44 AM CDT Well woman exam with routine gynecological exam HM DIABETES EYE EXAM Routine 01/20/2022 from Last 3 Months or Most Recently Relevant to Health Maintenance Results * (ABNORMAL) URINE CULTURE (05/26/2025 3:27 PM CDT) URINE CULTURE SEE NOTE(A) [facility] Comment: CULTURE, URINE, ROUTINE Micro Number: [id number] Test Status: Final Specimen Source: Urine, clean catch Specimen Quality: Adequate Result: 50,000-100,000 CFU/mL of Coagulase negative staphylococcus, not S. saprophyticus May represent colonizers from external and internal genitalia. No further testing (including susceptibility) will be performed. 1,000-9,000 CFU/ML of Group B Streptococcus isolated Beta-hemolytic streptococci are predictably susceptible to Penicillin and other beta-lactams. Susceptibility testing not routinely performed. Please contact the laboratory within 3 days if susceptibility testing is desired. Comment: Erythromycin and clindamycin are not recommended for treatment of urinary tract infections, but clindamycin may be useful for treatment of rectovaginal colonization or infection. Any amount of group B Streptococcus in urine specimens obtained from females is a marker of genital tract colonization. If this patient is , please refer to ACOG guidelines for appropriate screening and management of women. Test Performed at: [facility] [address] [place] [address] Patti Rangel MD Urine URINE SPECIMEN OBTAINED BY CLEAN CATCH PROCEDURE / Unknown 05/26/2025 3:27 PM CDT 05/27/2025 5:52 AM CDT Viktoria Griselda Ding SKIN CARE CONSULTANT MICROBIOLOGY - GENERAL O RDERABLES Final Result Performing Organization Address City/[facility] Co de Phone Number [facility] [phone] [facility] [address] [place] [address] * (ABNORMAL) POC URINALYSIS DIPSTICK AUTOMATED (05/26/2025 3:11 PM CDT) COLOR UA POC Yellow Pale to Dark Yellow [facility] CLARITY UA POC Clear Clear, Other [place] [facility] GLUCOSE UA POC 3+(A) Negative, Normal [facility] BILIRUBIN UA POC Negative Negative [facility] KETONES UA POC 2+(A) Negative [facility] SPECIFIC GRAVITY UA POC 1.020 1.000 - 1.030 [facility] BLOOD UA POC 1+(A) Negative [facility] PH UA POC 5.5 5.0 - 8.0 [facility] PROTEIN UA POC Negative Negative [facility] UROBILINOGEN UA POC 0.2 <2.0 mg/dL [facility] NITRITE UA POC Negative Negative [facility] LEUKOCYTE ESTERASE UA POC Negative Negative [facility] KIT LOT NUMBER POC [phone] [facility] KIT EXP DATE POC [id number] [facility] Urine 05/26/2025 3:11 PM CDT Viktoria MONTANEZP POINT OF CARE TESTING Fi nal Result Performing Organization Address City/[facility]/ZIP Co de Phone Number [facility] CLIA# [id number] [address] [place] [address] * VAGINOSIS/VAGINITIS PANEL PLUS (05/26/2025 3:00 PM CDT) Only the most recent of3 resultswithin the time period is included. BACTERIAL VAGINOSIS NEGATIVE NEGATIVE [facility] ELSIE SPECIES NOT DETECTED NOT DETECTED [facility] ELSIE GLABRATA NOT DETECTED NOT DETECTED [facility] Comment: Elsie species C. albicans, C. tropicalis, C. parapsilosis, and/or C. dubliniensis can be detected, but not differentiated, in the Elsie spp. result. TRICHOMONAS VAGINALIS (TV), TMA NOT DETECTED NOT DETECTED [facility] CHLAMYDIA TRACHOMATIS RNA, TMA, UROGENITAL NOT DETECTED NOT DETECTED [facility] NEISSERIA GONORRHOEAE RNA, TMA, UROGENITAL NOT DETECTED NOT DETECTED [facility] Comment: For additional information, please refer to https://education.[employer]/faq/JYN785 (This link is being provided for information/ educational purposes only.) Test Performed at: [facility] [address] [place] [address] Patti Rangel MD Genital SPECIMEN FROM VAGINA / Unknown 05/26/2025 3:00 PM CDT 05/27/2025 5:39 AM CDT Viktoria Ding [facility] MICROBIOLOGY - GENERAL O RDERABLES Final Result [facility] [phone] [facility] [address] [place] [address] * (ABNORMAL) MICROALBUMIN/CREATININE RATIO, RANDOM UR (04/04/2025 8:40 AM CDT) CREATININE, URINE 142 20 - 275 mg/dL [facility] ALBUMIN, URINE 15.8 See Note: mg/dL [facility] Comment: Reference Range: Reference Range Not established ALB/CREAT RATIO, URINE 111(H) <30 mg/g creat [facility] Comment: The ADA defines abnormalities in albumin excretion as follows: Albuminuria Category Result (mg/g creatinine) Normal to Mildly increased <30 Moderately increased 30-299 Severely increased > OR = 300 The ADA recommends that at least two of three specimens collected within a 3-6 month period be abnormal before considering a patient to be within a diagnostic category. Test Performed at: [facility] [address] [place] [address] Patti Rangel MD Urine URINE SPECIMEN OBTAINED BY CLEAN CATCH PROCEDURE / Unknown 04/04/2025 8:40 AM CDT 04/05/2025 3:57 AM CDT us Franck Baltazar MD URINE ORDERABLES Final Re sult [facility] [phone] [facility] [address] [place] [address] * (ABNORMAL) CBC WITH DIFFERENTIAL (04/04/2025 8:27 AM CDT) WBC 6.0 3.8 - 10.8 Thousand/u L [facility] RBC 4.79 3.80 - 5.10 Million/uL [facility] HEMOGLOBIN 14.5 11.7 - 15.5 g/dL [facility] HEMATOCRIT 45.7(H) 35.0 - 45.0 % [facility] MCV 95.4 80.0 - 100.0 fL [facility] MCH 30.3 27.0 - 33.0 pg [facility] MCHC 31.7(L) 32.0 - 36.0 g/dL [facility] Comment: For adults, a slight decrease in the calculated MCHC value (in the range of 30 to 32 g/dL) is most likely not clinically significant; however, it should be interpreted with caution in correlation with other red cell parameters and the patient's clinical condition. RDW 14.4 11.0 - 15.0 % [facility] PLATELETS 317 140 - 400 Thousand/u L [facility] MPV 10.3 7.5 - 12.5 fL [facility] NEUTROPHIL ABSOLUTE 3,186 1,500 - 7,800 cells/uL [facility] LYMPHOCYTE ABSOLUTE 2,082 850 - 3,900 cells/uL [facility] MONOCYTE ABSOLUTE 456 200 - 950 cells/uL [facility] EOSINOPHIL ABSOLUTE 228 15 - 500 cells/uL [facility] BASOPHILS ABSOLUTE 48 0 - 200 cells/uL [facility] NEUTROPHIL 53.1 % [facility] LYMPHOCYTES 34.7 % [facility] MONOCYTE 7.6 % [facility] EOSINOPHILS 3.8 % [facility] BASOPHILS 0.8 % [facility] Comment: Test Performed at: [facility] [address] [place] [address] Patti Rangel MD Blood 04/04/2025 8:27 AM CDT 04/05/2025 3:40 AM CDT Franck Baltazar MD HEMATOLOGY ORDERABLES Fin al Result [facility] [phone] [facility] [place] [address] * (ABNORMAL) HEMOGLOBIN A1C (04/04/2025 8:27 AM CDT) HEMOGLOBIN A1C 10.2(H) <5.7 % [facility] Comment: For someone without known diabetes, a hemoglobin A1c value of 6.5% or greater indicates that they may have diabetes and this should be confirmed with a follow-up test. For someone with known diabetes, a value <7% indicates that their diabetes is well controlled and a value greater than or equal to 7% indicates suboptimal control. A1c targets should be individualized based on duration of diabetes, age, comorbid conditions, and other considerations. Currently, no consensus exists regarding use of hemoglobin A1c for diagnosis of diabetes for children. ESTIMATED AVERAGE GLUCOSE (MG/DL) 246 mg/dL [facility] ESTIMATED AVERAGE GLUCOSE (MMOL/L) 13.6 mmol/L [facility] Comment: Test Performed at: [facility] [address] [place] [address] Patti Rangel MD Blood 04/04/2025 8:27 AM CDT 04/05/2025 3:40 AM CDT Franck Baltazar MD CHEMISTRY ORDERABLES Keri l Result [facility] [phone] [facility] [address] [place] [address] * (ABNORMAL) LIPID PANEL (04/04/2025 8:27 AM CDT) CHOLESTEROL 172 <200 mg/dL [facility] HDL 39(L) > OR = 50 mg/dL [facility] TRIGLYCERIDE 360(H) <150 mg/dL [facility] Comment: If a non-fasting specimen was collected, consider repeat triglyceride testing on a fasting specimen if clinically indicated. Charla et al. J. of Clin. Lipidol. 2015;9:129-169. LDL CALCULATED 85 mg/dL (calc) [facility] Comment: Reference range: <100 Desirable range <100 mg/dL for primary prevention; <70 mg/dL for patients with CHD or diabetic patients with > or = 2 CHD risk factors. LDL-C is now calculated using the Antonio-Espinal calculation, which is a validated novel method providing better accuracy than the Friedewald equation in the estimation of LDL-C. Antonio SS et al. ERIN. 2013;310(19): 4025-8543 (http://education.[employer]/faq/JKY659) CHOL/HDL RATIO 4.4 <5.0 (calc) [facility] NON-HDL CHOLESTEROL 133(H) <130 mg/dL (calc) [facility] Comment: For patients with diabetes plus 1 major ASCVD risk factor, treating to a non-HDL-C goal of <100 mg/dL (LDL-C of <70 mg/dL) is considered a therapeutic option. Test Performed at: [facility] [address] [facility] [place] [address] Patti Rangel MD Blood 04/04/2025 8:27 AM CDT 04/05/2025 3:40 AM CDT Franck Baltazar MD CHEMISTRY ORDERABLES Keri nair Result [facility] [phone] [facility] [address] [place] [address] * (ABNORMAL) COMPREHENSIVE METABOLIC PANEL (04/04/2025 8:27 AM CDT) GLUCOSE 288(H) 65 - 99 mg/dL [facility] Comment: Fasting reference interval For someone without known diabetes, a glucose value >125 mg/dL indicates that they may have diabetes and this should be confirmed with a follow-up test. BUN 8 7 - 25 mg/dL [facility] CREATININE 0.58 0.50 - 0.97 mg/dL [facility] GFR 122 > OR = 60 mL/min/1. 73m2 [facility] BUN/CREAT RATIO SEE NOTE: 6 - 22 (calc) [facility] Comment: Not Reported: BUN and Creatinine are within reference range. SODIUM 134(L) 135 - 146 mmol/L [facility] POTASSIUM 4.2 3.5 - 5.3 mmol/L [facility] CHLORIDE 98 98 - 110 mmol/L [facility] CO2 25 20 - 32 mmol/L [facility] CALCIUM 9.0 8.6 - 10.2 mg/dL [facility] TOTAL PROTEIN 6.9 6.1 - 8.1 g/dL [facility] ALBUMIN 3.9 3.6 - 5.1 g/dL [facility] GLOBULIN 3.0 1.9 - 3.7 g/dL (calc) [facility] ALBUMIN/GLOBULIN RATIO 1.3 1.0 - 2.5 (calc) [facility] BILIRUBIN TOTAL 0.4 0.2 - 1.2 mg/dL [facility] ALKALINE PHOSPHATASE 75 31 - 125 U/L [facility] AST 27 10 - 30 U/L [facility] ALT 28 6 - 29 U/L [facility] Comment: Test Performed at: [facility] [facility] [address] [facility] [place] [address] Patti Rangel MD Blood 04/04/2025 8:27 AM CDT 04/05/2025 3:40 AM CDT us Franck Baltazar MD CHEMISTRY ORDERABLES Keri l Result [facility] [phone] [facility] [address] [facility] [place] [address] * CERV/VAG CYTO AGE BASED SCREEN PAP (04/06/2022 10:44 AM CDT) COMMENT (PAP): [facility] Comment: This order for age-based cervical cancer and STI screening follows ACOG guidelines(PB 168, 140, VCF923). See individual assays for performing site location. CLINICAL INFORMATION [facility] Comment:Information not prov ided LAST MENSTRUAL PERIOD [facility] Comment:INFORMATION NOT PROV IDED PREV PAP: [facility] Comment:INFORMATION NOT PROV IDED PREV BX: [facility] Comment:INFORMATION NOT PROV IDED SOURCE [facility] Comment:Endocervix ADEQUACY: [facility] Comment: Satisfactory for evaluation. Endocervical/transformation zone component present. Age and/or menstrual status not provided PAP INTERP [facility] Comment:Negative for intraep ithelial lesion or malignancy. COMMENT (PAP TEST) [facility] Comment: This Pap test has been evaluated with computer assisted technology. FISCAL ASSISTANT: [facility] Comment: MLO, CT(ASCP) CT screening location: [place] [address] [place] [address] EXPLANATORY NOTE [facility] Comment: EXPLANATORY NOTE: The Pap is a screening test for cervical cancer. It is not a diagnostic test and is subject to false negative and false positive results. It is most reliable when a satisfactory sample, regularly obtained, is submitted with relevant clinical findings and history, and when the Pap result is evaluated along with historic and current clinical information. HPV E6/E7 Not Detected Not Detected [facility] Comment: Methodology: Program Director/Music Director-Mediated Amplification This assay detects E6/E7 viral messenger RNA (mRNA) from 14 high-risk HPV types (16,18,31,33,35,39,45,51,52,56,58,59,66,68). The analytical performance characteristics of this assay have been determined by [facility]. The modifications have not been cleared or approved by the FDA. This assay has been validated pursuant to the CLIA regulations and is used for clinical purposes. For additional information, please refer to http://education.[employer]/faq/GVG354t8 (This link if provided for information/ educational purposes only.) Test Performed at: [facility] [address] [place] [address] Aric Hancock D.O., MPH SL Genital SWAB OF ENDOCERVIX / Unknown 04/06/2022 10:44 AM CDT 04/07/2022 7:26 AM CDT Conchita GARCIA PATHOLOGY/CYTOLOGY ORDER JAI Final Result [facility] [phone] * DIABETES EYE EXAM (01/20/2022) us Abstract Provider HEALTH MAINTENANCE Final Resul t from Last 3 Months or Most Recently Relevant to Health Maintenance Insurance [facility] MEDICAID [employer]ANCE [employer] [place] [id number] [place] [phone] Care Teams Conference Manager Relationship Specialty Start Date End Date Franck Baltazar MD [address] [phone] PCP - General Family Practice 10/13/21
--- OUTSIDE RECORDS SUMMARY | 2025-06-23 12:54 | XMS_ITS | Encounter Summary ---
Author Organization [facility] Address [address] [place] [address] Care Team Providers Care Adult Education Teacher Name Role Phone Unavailable Primary Care Provider Unavailabl e Encounter Details Date Type Department Care Team (Latest Contact Info) Description 12/22/2004 Outpatient Historical [facility] Medicine [place] [address] [phone] Jess Perez, [facility] [address] [facility] [address] [place] [address] ATTN DEFICIT W HYPERACT (Primary Dx); OPPOSITIONAL DEFIANT DISORDER Social History Tobacco Use Types Packs/Day Years Used Date Smoking Tobacco: Never Assessed Comments Unknown Sex and Gender Information Value Date Recorded Sex Assigned at Not on file 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
--- OUTSIDE RECORDS SUMMARY | 2025-06-23 12:54 | XMS_ITS | Encounter Summary ---
Author Organization [facility] Address [address] [place] [address] Care Team Providers Care Sewage Reticulation Drafting Officer Name Role Phone Franck Baltazar MD Primary Care Provider [phone] Reason for Visit * Reason Onset Date Comments Results 04/28/2025 Encounter Details Date Type Department Care Team ([facility] st Contact Info) Description 04/28/2025 Results Follow-Up [facility] [place] [address] [phone] TimurViktoria moody, 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 Voiced understanding. Lila MONSON * Telephone Encounter - Lila Elmore RN - 04/28/2025 11:24 AM CDT ----- Message from Viktoria Ding sent at 04/28/2025 8:57 AM CDT ----- Vaginosis panel is negative for infection. RADHA Langford, 04/28/2025 8:57 AM documented in this encounter Plan of Treatment Upcoming Encounters Date Type Department Care Team (Late st Contact Info) Description 07/04/2025 8:00 AM CDT Office Visit [facility] [address] [phone] Viktoria Ding FNP [address] [phone] documented as of this encounter Visit Diagnoses Not on filedocumented in this encounter Care Teams Sewage Reticulation Drafting Officer Relationship Specialty Start Date End Date Franck Baltazar MD [address] [address] PCP - General Family Practice 10/13/21 documented as of this encounter
--- OUTSIDE RECORDS SUMMARY | 2025-06-23 12:54 | XMS_ITS | Encounter Summary ---
Author Organization [facility] Address [address] [place] [address] Care Team Providers Care Review Scheduling Coordinator Name Role Phone Unavailable Primary Care Provider Unavailabl e Encounter Details Date Type Department Care Team (Latest Contact Info) Description 03/09/2005 Outpatient Historical [facility] Medicine [place] [address] [phone] Jess Perez, 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
--- OUTSIDE RECORDS SUMMARY | 2025-06-23 12:54 | XMS_ITS | Encounter Summary ---
Author Organization [facility] Address [address] [place] [address] Care Team Providers Care Merchandise Presentation Associate Name Role Phone Unavailable Primary Care Provider Unavailabl e Encounter Details Date Type Department Care Team (Latest Contact Info) Description 01/05/2001 Outpatient Historical [address] [phone] Viviana Delgadillo MD [address], [address] Attention deficit disorder with hyperactivity(314.01 ) (Primary Dx); Benign neoplasm of skin, site unspecified Social History Tobacco Use Types Packs/Day Years Used Date Smoking Tobacco: Never Assessed Comments Unknown Sex and Gender Information Value Date Recorded Sex Assigned at Not on file 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
[2025-06-23 12:55] VITALS: BP 133/104; PULSE 106; RESP 20; TEMP 36.8; O2SAT 98
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
--- NOTE | 2025-06-23 13:22 | CT_ITS ---
WS: [id number] CT CHEST, ABDOMEN AND PELVIS WITH CONTRAST HISTORY: Trauma TECHNIQUE: Contiguous 5 mm axial imaging performed through the chest, abdomen and pelvis with IV contrast, oral contrast has not been provided. Coronal and sagittal reformats chest. Coronal and sagittal reformats through the abdomen and pelvis. All CT scans at [facility] use at least one of these dose optimization techniques: automated exposure control; mA and/or kV adjustment per patient size (includes targeted exams where dose is matched to clinical indication); or iterative reconstruction. CONTRAST: Omnipaque 350; 100 mL IV. DLP: 1873.48 mGy.cm COMPARISON: CT abdomen 10/18/[address]: Lungs are clear. No pulmonary contusion, laceration or pneumothorax. No mass or nodule. No pericardial effusion. Normal size heart. Normal thoracic aorta. Normal size pulmonary artery. No adenopathy. No thoracic spine or rib fractures. Abdomen CT: Mild thyromegaly. Diffuse hepatic steatosis. Normal portal vein. Normal gallbladder. Normal spleen. Normal pancreas and adrenal glands. No renal obstruction. No solid mass. 10 mm posterior LEFT renal cyst. No ascites. No mesenteric injury hematoma. No GI tract obstruction. No colitis. Normal appendix. Pelvic CT: No free fluid in the pelvis. Uterus is midline. Urinary bladder is intact. No adenopathy. No ascites. No fractures. CT/CT chest abdpel w/*[id number] IMPRESSION: 1. No pulmonary contusion or laceration. 2. No pneumothorax. 3. No mediastinal injury. 4. No hemoperitoneum. 5. No visceral organ injury. 6. No fractures.
--- NOTE | 2025-06-23 13:22 | CT_ITS ---
WS: [id number] CT CERVICAL SPINE HISTORY: Trauma TECHNIQUE: Contiguous 2.0 mm axial imaging performed through the entire cervical spine. Sagittal and coronal reformats also performed. All CT scans at [facility] use at least one of these dose optimization techniques: automated exposure control; mA and/or kV adjustment per patient size (includes targeted exams where dose is matched to clinical indication); or iterative reconstruction. DLP: 1393.98 mGy.cm COMPARISON: None available. Normal cervical alignment. Craniocervical junction, atlantodental interval and C1-C2 alignment is normal. C2-C3: Normal. C3-C4: Normal. C4-C5: Normal. C5-C6: Normal. C6-C7: Normal. C7-T1: Normal. Soft tissues are normal. Lung apices are clear. CT/CT cervical spin wo con* [id number] IMPRESSION: Normal cervical spine.
--- NOTE | 2025-06-23 13:22 | CT_ITS ---
WS: [id number] CT HEAD NONCONTRAST HISTORY: Trauma TECHNIQUE: Contiguous axial imaging performed through the brain. Bone and soft tissue windows. Sagittal and coronal reformats reviewed. All CT scans at [facility] use at least one of these dose optimization techniques: automated exposure control; mA and/or kV adjustment per patient size (includes targeted exams where dose is matched to clinical indication); or iterative reconstruction. DLP: 1393.98 mGy.cm COMPARISON: None available. No acute intracranial hemorrhage, midline shift or mass effect. No atrophy or prior infarcts or herniation. Ventricles: Normal size with no hydrocephalus. Paranasal sinuses: As visualized are clear. Mastoid air cells: Well pneumatized. Calvarium and scalp: Skull is intact with no soft tissue edema or swelling. CT/CT head wo con* [id number] IMPRESSION: Negative head CT.
[2025-06-23] MEDS: iohexol 350 mg/mL 500 mL Btl (per mL) IV (13:45)
[2025-06-23 15:18] VITALS: PULSE 87; O2SAT 92
== END 2025-06-23 15:19 | disposition home or self-care (01) ==
PROVIDERS: Emergency Provider Family Medicine; PCP Family Medicine
DX: M54.2 Cervicalgia (principal); M54.9 Dorsalgia, unspecified; V89.2XXA Person injured in unspecified motor-vehicle accident, traffic, initial encounter; E11.9 Type 2 diabetes mellitus without complications
CPT/HCPCS: 70450; 71260; 72125; 74177; 99285

== ENCOUNTER 2025-06-25 10:11 | Emergency (ER) | payer BC, MEDICAID, SELFPAY ==
[2025-06-25 10:14] VITALS: BP 145/100; PULSE 83; RESP 18; TEMP 36.4; O2SAT 96; BMI 48.9
--- OUTSIDE RECORDS SUMMARY | 2025-06-25 10:18 | XMS_ITS | Encounter Summary ---
Author Organization [facility] Address [address] [place] [address] Care Team Providers Care Concrete Pump Operator Name Role Phone Unavailable Primary Care Provider Unavailabl e Encounter Details Date Type Department Care Team (Latest Contact Info) Description 01/05/2005 Outpatient Historical [facility] [place] [address] [phone] Jess Perez, 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
--- OUTSIDE RECORDS SUMMARY | 2025-06-25 10:18 | XMS_ITS | Encounter Summary ---
Author Organization [facility] Address [address] [place] [address] Care Team Providers Care Behavioral Therapist Name Role Phone Unavailable Primary Care Provider Unavailabl e Encounter Details Date Type Department Care Team (Latest Contact Info) Description 09/01/2003 Outpatient Historical [facility] [address], [place] [phone] Jose Caicedo MD [address] [place] [phone] ATTN DEFICIT NONHYPERACT (Primary Dx); ACUTE BRONCHITIS; TRACHEA/BRONCHUS DIS NEC Social History Tobacco Use Types Packs/Day Years Used Date Smoking Tobacco: Never Assessed Comments Unknown Sex and Gender Information Value Date Recorded Sex Assigned at Not on file 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
--- OUTSIDE RECORDS SUMMARY | 2025-06-25 10:18 | XMS_ITS | Encounter Summary ---
Author Organization [facility] Address [address] [place] [address] Care Team Providers Care Manager Integration Name Role Phone Unavailable Primary Care Provider Unavailabl e Encounter Details Date Type Department Care Team (Latest Contact Info) Description 04/22/2003 Outpatient Historical [facility] [address] [phone] Jose Caicedo MD [address] [place] [phone] ACUTE FRONTAL SINUSITIS (Primary Dx); ATTN DEFICIT NONHYPERACT; ALLERGY, UNSPECIFIED Social History Tobacco Use Types Packs/Day Years Used Date Smoking Tobacco: Never Assessed Comments Unknown Sex and Gender Information Value Date Recorded Sex Assigned at Not on file 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
--- OUTSIDE RECORDS SUMMARY | 2025-06-25 10:18 | XMS_ITS | Encounter Summary ---
Author Organization [facility] Address [address] [place] [address] Care Team Providers Care Surveyor Oil Well Directional Name Role Phone Unavailable Primary Care Provider Unavailabl e Encounter Details Date Type Department Care Team (Latest Contact Info) Description 10/31/2001 Outpatient Historical [address] [phone] Viviana Delgadillo MD [address], [address] ATTN DEFICIT W HYPERACT (Primary Dx); ACUTE PHARYNGITIS Social History Tobacco Use Types Packs/Day Years Used Date Smoking Tobacco: Never Assessed Comments Unknown Sex and Gender Information Value Date Recorded Sex Assigned at Not on file 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
--- OUTSIDE RECORDS SUMMARY | 2025-06-25 10:18 | XMS_ITS | Encounter Summary ---
Author Organization [facility] Address [address] [place] [address] Care Team Providers Care Cable Maker Name Role Phone Unavailable Primary Care Provider Unavailabl e Encounter Details Date Type Department Care Team (Latest Contact Info) Description 09/26/2002 Outpatient Historical [address] [phone] Viviana Delgadillo MD [address] [place] [address], [id number] ACUTE URI NOS (Primary Dx); ALLERGIC RHINITIS NOS; DERMATITIS NOS Social History Tobacco Use Types Packs/Day Years Used Date Smoking Tobacco: Never Assessed Comments Unknown Sex and Gender Information Value Date Recorded Sex Assigned at Not on file 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
--- OUTSIDE RECORDS SUMMARY | 2025-06-25 10:18 | XMS_ITS | Clinical Summary ---
Author Organization [facility] Address [address] [facility] [address] [place] [address] Phone Care Team Providers Care Resizer Operator Name Role Phone Unavailable Primary Care [...] on file Legal Sex Female 3:31 AM VOCATIONAL EVALUATOR Gender Identity Not on file Sexual Orientation [...]
--- OUTSIDE RECORDS SUMMARY | 2025-06-25 10:18 | XMS_ITS | Encounter Summary ---
Author Organization [facility] Address [address] [place] [address] Care Team Providers Care Senior Drupal Developer Name Role Phone Franck Baltazar MD Primary Care Provider [phone] Reason for Visit * Reason Onset Date Comments Results 04/28/2025 Encounter Details Date Type Department Care Team ([facility] st Contact Info) Description 04/28/2025 Results Follow-Up [facility] Medicine [place] [address] [phone] TimurViktoria moody, [facility] [address] [phone] VAGINOSIS/VAGINITIS PANEL PLUS Social History Tobacco Use Types Packs/Day Years Used Date Smoking Tobacco: Former Cigarettes 0.5 10 Smokeless Tobacco: Never Alcohol Use Standard Drinks/Week Comments Not Currently 0 (1 standard drink = 0.6 oz pur e alcohol) occasionally Comments No Sex and Gender Information Value Date Recorded Sex Assigned at Not on file Legal Sex Female 8:29 AM GAS STATION CLERK Gender Identity Not on file Sexual Orientation [...] Description 07/04/2025 8:00 AM CDT Office Visit [facility] [address] [phone] Viktoria Ding FNP [address] [phone] documented as of this encounter Visit Diagnoses Not on filedocumented in this encounter Care Teams Senior Drupal Developer Relationship Specialty Start Date End Date Franck Baltazar MD [address] [phone] PCP - General Family Practice 10/13/21 documented as of this encounter
--- OUTSIDE RECORDS SUMMARY | 2025-06-25 10:18 | XMS_ITS | Encounter Summary ---
Author Organization [facility] Address [address] [place] [address] Care Team Providers Care Lawn Mower Repairer Name Role Phone Unavailable Primary Care Provider Unavailabl e Encounter Details Date Type Department Care Team (Latest Contact Info) Description 12/17/2002 Outpatient Historical [facility] Medicine [place] [address] [phone] Joan Ortiz MD [address] [place] [address] VACCINE FOR DISEASE NEC (Primary Dx) Social History Tobacco Use Types Packs/Day Years Used Date Smoking Tobacco: Never Assessed Comments Unknown Sex and Gender Information Value Date Recorded Sex Assigned at Not on file 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
--- OUTSIDE RECORDS SUMMARY | 2025-06-25 10:18 | XMS_ITS | Encounter Summary ---
Author Organization [facility] Address [address] [place] [address] Care Team Providers Care Monotype Operator Name Role Phone Unavailable Primary Care Provider Unavailabl e Encounter Details Date Type Department Care Team (Latest Contact Info) Description 12/22/2004 Outpatient Historical [facility] Medicine [place] [address] [phone] Jess Perez, 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
--- OUTSIDE RECORDS SUMMARY | 2025-06-25 10:18 | XMS_ITS | Encounter Summary ---
Author Organization [facility] Address [address] [place] [address] Care Team Providers Care Onshore Diver Name Role Phone Unavailable Primary Care Provider Unavailabl e Encounter Details Date Type Department Care Team (Latest Contact Info) Description 11/30/2001 Outpatient Historical [facility] [address] [phone] Joan Ortiz MD [address] [place] [address] NASAL & SINUS DIS NEC (Primary Dx); NONINFEC GASTROENTERIT NEC Social History Tobacco Use Types Packs/Day Years Used Date Smoking Tobacco: Never Assessed Comments Unknown Sex and Gender Information Value Date Recorded Sex Assigned at Not on file 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
--- OUTSIDE RECORDS SUMMARY | 2025-06-25 10:18 | XMS_ITS | Encounter Summary ---
Author Organization [facility] Address [address] [place] [address] Care Team Providers Care Regulatory Affairs Manager Name Role Phone Unavailable Primary Care Provider Unavailabl e Encounter Details Date Type Department Care Team (Latest Contact Info) Description 01/05/2001 Outpatient Historical [address] [phone] Viviana Delgadillo MD [address], [phone] Attention deficit disorder with hyperactivity(314.01 ) (Primary Dx); Benign neoplasm of skin, site unspecified Social History Tobacco Use Types Packs/Day Years Used Date Smoking Tobacco: Never Assessed Comments Unknown Sex and Gender Information Value Date Recorded Sex Assigned at Not on file 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
--- OUTSIDE RECORDS SUMMARY | 2025-06-25 10:18 | XMS_ITS | Encounter Summary ---
Author Organization [facility] Address [address] [place] [address] Care Team Providers Care Major Case Detective Name Role Phone Unavailable Primary Care Provider Unavailabl e Encounter Details Date Type Department Care Team (Latest Contact Info) Description 12/29/2004 Outpatient Historical [facility] Medicine [place] [address] [phone] Jess Perez, [facility] [address] [facility] [address] [place] [address] ATTN DEFICIT W HYPERACT (Primary Dx); OPPOSITIONAL DEFIANT DISORDER Social History Tobacco Use Types Packs/Day Years Used Date Smoking Tobacco: Never Assessed Comments Unknown Sex and Gender Information Value Date Recorded Sex Assigned at Not on file 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
--- OUTSIDE RECORDS SUMMARY | 2025-06-25 10:18 | XMS_ITS | Clinical Summary ---
Author Organization Sharon Oh [facility] Address [address] [facility] [address] [place] [address] Phone Care Team Providers Care Transmission Rebuilder Name Role Phone Franck Baltazar MD Primary Care Provider [phone] Allergies No known active allergies Medications Insulin [place], Disposable, (TechLITE Pen Needle) 31 gauge x 3/16 Needle USE DIRECTED ONCE DAILY WITH INSULIN 100 Each 2 2 Active lancets (OneTouch Delica Plus Lancet) 30 gauge Use to test blood sugar once daily. 100 Each 2 4 Active empagliflozin (Jardiance) 10 mg tabletIndicatio ns:Type 2 diabetes mellitus with hyperglycemia, without long-term current use of insulin ([facility]) Take 1 Tablet (10 mg) by mouth daily in the morning. 100 Tablet 3 5 Active blood sugar diagnostic (OneTouch Ultra Test) StripIndication s:Type 2 diabetes mellitus with hyperglycemia, without long-term current use of insulin ([facility]) Use to test fasting blood sugars once daily 100 Each 2 5 Active albuterol sulfate HFA 90 mcg/actuation aerosol inhalerIndicati ons:Cough, unspecified type Take 2 Puffs by inhalation every 4 hours as needed for Shortness of Breath (cough). 8.5 Gram 1 5 Active Blood-Glucose Meter KitIndications: Type 2 diabetes mellitus without complication, without long-term current use of insulin ([facility]) True metrix- Monitor fasting blood sugars once daily 1 Kit 5 Active ondansetron (ZOFRAN ODT) 8 mg Tablet, Rapid Dissolve DISSOLVE 1 TABLET IN MOUTH ONCE DAILY NEEDED FOR NAUSEA AND VOMITING FOR 5 DAYS 5 Active True Metrix Air Glucose Meter Monitor fasting blood sugars ONCE daily 5 Active semaglutide (Ozempic) 0.25 mg or 0.5 mg (2 mg/3 mL) Pen InjectorIndicat ions:Type 2 diabetes mellitus with hyperglycemia, without long-term current use of insulin ([facility]) Inject 0.5 mg by subcutaneous injection every 7 days. Increase to 0.5mg after 4 weeks 9 mL 3 5 Active glipiZIDE (GLUCOTROL) 10 mg tabletIndicatio ns:Type 2 diabetes mellitus with hyperglycemia, without long-term current use of insulin ([facility]) Take 2 Tablets (20 mg) by mouth 2 times daily with meals. 120 Tablet 11 5 Active sulfamethoxazol e-trimethoprim (BACTRIM DS) 800-160 mg tabletIndicatio ns:Acute cystitis without hematuria Take 1 Tablet by mouth 2 times daily for 7 days. 14 Tablet 5 025 Active Problems Problem Noted Date Diagnosed Date Morbid obesity with BMI of 45.0-49.9, adult 02/19 Chest congestion 08/25/2023 Chest pain at rest 08/25/2023 Type 2 diabetes mellitus wit h hyperglycemia, without long-term current use of insulin 12/15/2021 Encounters Date Type Department Care Team Description 06/04/2025 External Device Data [facility] ABSTRACTION Provider, Abstract 05/28/[address] [address] TimurViktoria, OCEAN BIOLOGIST Acute cystitis without hematuria (Primary Dx) 05/26/2025 1:40 PM CDT Office Visit [address] [address] TimurViktoria, OCEAN BIOLOGIST Vaginal discharge (Primary Dx); Type 2 diabetes mellitus with hyperglycemia, without long-term current use of insulin ([facility]); Dysuria; Screening for diabetes mellitus; Other microscopic hematuria 05/26/2025 Results Follow-Up [address] [address] Timur, Crystal Griselda, OCEAN BIOLOGIST POC URINALYSIS DIPSTICK AUTOMATED, VAGINOSIS/VAGINITIS PANEL PLUS, URINE CULTURE 05/23/[address] [address] Franck Baltazar MD Type 2 diabetes mellitus with hyperglycemia, without long-term current use of insulin ([facility]) 05/20/2025 External Device Data [facility] ABSTRACTION Provider, Abstract 05/09/[address] [phone] TimurViktorian, OCEAN BIOLOGIST Medication Assistance; Patient Communication 05/09/[address] [phone] TimurViktorian, OCEAN BIOLOGIST Medication Review; Patient Communication; Question 05/03/[address] [address] Amy Bingham RN [facility] Marketing Manager 04/28/2025 Results Follow-Up [address] [address] Timur Crystal Griselda, OCEAN BIOLOGIST VAGINOSIS/VAGINITIS PANEL PLUS 04/28/[address] [phone] TimurViktorian, OCEAN BIOLOGIST Results 04/25/2025 Medication Prior Auth Encounter [address] [phone] TimurViktoria moody, OCEAN BIOLOGIST 04/25/[address] [phone] Franck Baltazar MD Information 04/24/2025 10:00 AM CDT Office Visit [address] [phone] Timur, Viktoria Smithn, OCEAN BIOLOGIST Type 2 diabetes mellitus with hyperglycemia, without long-term current use of insulin ([facility]) (Primary Dx); Vaginal odor 04/24/2025 Orders Only [facility] [address] [place] [phone] Timur, Viktoria Smithn, OCEAN BIOLOGIST Type 2 diabetes mellitus without complication, without long-term current use of insulin ([facility]) (Primary Dx) 04/24/2025 Orders Only [address] [place] [phone] Swapnil Morris Type 2 diabetes mellitus without complication, without long-term current use of insulin ([facility]) 04/24/2025 Orders Only [address] [place] [phone] Arturo Swapnil Cough, unspecified type 04/24/[address] [place] [phone] Timur, Viktoria Smithn, OCEAN BIOLOGIST Patient Communication 04/21/2025 Results Follow-Up [address] [place] [phone] Monae Hammond, OCEAN BIOLOGIST VAGINOSIS/VAGINITIS PANEL PLUS 04/17/2025 1:40 PM CDT Office Visit [address] [place] [phone] Monae Hammond, OCEAN BIOLOGIST Vaginal odor (Primary Dx) 04/10/[address] [phone] Lelia Rock RN [facility] Marketing Manager 04/10/2025 Results Follow-Up [address] [place] [phone] Franck Baltazar MD LIPID PANEL, COMPREHENSIVE METABOLIC PANEL, CBC WITH DIFFERENTIAL, Additional followed-up results: 2 04/10/2025 Telephone [facility] [address] [address] Franck Baltazar MD Results 04/09/2025 Patient [facility] [address] [place] [address] John Raya Referral; Employment Concerns; Housing Assistance; Healthcare Access; Insurance Coverage; Medication Assistance 04/04/2025 8:00 AM CDT [facility] [address] [phone] Viktoria Ding FNP Type 2 diabetes mellitus with hyperglycemia, without long-term current use of insulin ([facility]) (Primary Dx); Dysfunctional uterine bleeding; Homelessness; Morbid obesity with BMI of 45.0-49.9, adult ([facility]) 04/04/2025 Patient [facility] [address] [place] [address] John Raya Referral; Medication Assistance 04/04/[address] [phone] Franck Baltzaar MD Medication Assistance 04/04/[address] [address] Viktoria Ding FNP Information from Last 3 Months Immunizations Immunization [...] on file Legal Sex Female 8:29 AM FILTER CHANGER Gender Identity Not on file Sexual Orientation [...] Description 07/04/2025 8:00 AM CDT [facility] [address] [phone] Viktoria Ding, OCEAN BIOLOGIST [address] [address] Health Maintenance Due Date Last [...] history exists CERVICAL CANCER SCREENING 04/06/2027 HPV/Cotest (-) 04/06/2027 04/06/2022 HPV/Cotest (30-65) 04/06/2027 04/06/2022 HEPATITIS [...] hyperglycemia, without long-term current use of insulin ([facility]/HCC) HEMOGLOBIN A1C Routine 04/04/2025 8:27 AM CDT Type 2 diabetes mellitus with hyperglycemia, without long-term current use of insulin (CMS/HCC) CBC WITH DIFFERENTIAL Routine 04/04/2025 8:27 AM CDT Type 2 diabetes mellitus with hyperglycemia, without long-term current use of insulin (CMS/HCC) COMPREHENSIVE METABOLIC PANEL Routine 04/04/2025 8:27 AM CDT Type 2 diabetes mellitus with hyperglycemia, without long-term current use of insulin (CMS/HCC) LIPID PANEL Routine 04/04/2025 8:27 AM CDT Type 2 diabetes mellitus with hyperglycemia, without long-term current use of insulin (CMS/HCC) CERV/VAG CYTO AGE BASED SCREEN PAP Routine 04/06/2022 10:44 AM CDT Well woman exam with routine gynecological exam HM DIABETES EYE EXAM Routine 01/20/2022 from Last 3 Months or Most Recently Relevant to Health Maintenance Results * (ABNORMAL) URINE CULTURE (05/26/2025 3:27 PM CDT) URINE CULTURE SEE NOTE(A) [facility] Comment: CULTURE, URINE, ROUTINE Micro Number: [id number] Test Status: Final Specimen Source: Urine, clean [...] and management of women. Test Performed at: [facility] [address] [place] [address] Patti Rangel MD Urine URINE SPECIMEN OBTAINED BY CLEAN CATCH PROCEDURE / Unknown 05/26/2025 3:27 PM CDT 05/27/2025 5:52 AM CDT us Viktoria Ding OCEAN BIOLOGIST MICROBIOLOGY - GENERAL O RDERABLES Final Result [facility] [phone] [facility] [id number] [place] [address] * (ABNORMAL) POC URINALYSIS DIPSTICK AUTOMATED (05/26/2025 3:11 PM CDT) COLOR UA POC Yellow Pale to Dark Yellow [facility] CLARITY UA POC Clear Clear, Other ME [facility] GLUCOSE UA POC 3+(A) Negative, Normal [facility] BILIRUBIN UA POC Negative Negative [facility] KETONES UA POC 2+(A) Negative [facility] SPECIFIC GRAVITY UA POC 1.020 1.000 - 1.030 [facility] BLOOD UA POC 1+(A) Negative [facility] PH UA POC 5.5 5.0 - 8.0 [facility] PROTEIN UA POC Negative Negative [facility] UROBILINOGEN UA POC 0.2 <2.0 mg/dL [facility] NITRITE UA POC Negative Negative [facility] LEUKOCYTE ESTERASE UA POC Negative Negative [facility] KIT [address] NUMBER POC [phone] [facility] KIT EXP DATE POC [phone] [facility] Urine 05/26/2025 3:11 PM CDT Viktoria Villalobos Timur OCEAN BIOLOGIST POINT OF CARE TESTING Fi nal Result [facility] CLIA# [id number] [address] [place] [address] * VAGINOSIS/VAGINITIS PANEL PLUS (05/26/2025 3:00 PM CDT) Only the most recent of3 resultswithin the time period is included. BACTERIAL VAGINOSIS NEGATIVE NEGATIVE [facility] ELSIE SPECIES NOT DETECTED NOT DETECTED [facility] ELSIE GLABRATA NOT DETECTED NOT DETECTED [facility] Comment: Elsie species C. albicans, C. tropicalis, C. parapsilosis, and/or C. dubliniensis can be detected, but not differentiated, in the Elsie spp. result. TRICHOMONAS VAGINALIS (TV), TMA NOT DETECTED NOT DETECTED [facility] CHLAMYDIA TRACHOMATIS RNA, TMA, UROGENITAL NOT DETECTED NOT DETECTED [facility] NEISSERIA GONORRHOEAE RNA, TMA, UROGENITAL NOT DETECTED NOT DETECTED [facility] Comment: For additional information, please refer to https://education.LoanLogics/faq/CMI004 (This link is being provided for information/ educational purposes only.) Test Performed at: [facility] [address] [place] [address] Patti Rangel MD Genital SPECIMEN FROM VAGINA / Unknown 05/26/2025 3:00 PM CDT 05/27/2025 5:39 AM CDT us Viktoria Ding OCEAN BIOLOGIST MICROBIOLOGY - GENERAL O RDERABLES Final Result Performing Organization Address [facility]/ZIP Co de Phone Number [facility] [phone] [id number] [facility] [place] [address] * (ABNORMAL) MICROALBUMIN/CREATININE RATIO, RANDOM UR (04/04/2025 8:40 AM CDT) CREATININE, URINE 142 20 - 275 mg/dL [facility] ALBUMIN, URINE 15.8 See Note: mg/dL [facility] Comment: Reference Range: Reference Range Not established ALB/CREAT RATIO, URINE 111(H) <30 mg/g creat [facility] Comment: The ADA defines abnormalities in albumin excretion as follows: Albuminuria Category Result (mg/g creatinine) Normal to Mildly increased <30 Moderately increased 30-299 Severely increased > OR = 300 The ADA recommends that at least two of three specimens collected within a 3-6 month period be abnormal before considering a patient to be within a diagnostic category. Test Performed at: [facility] [address] [facility] [place] [address] Patti Rangel MD Urine URINE SPECIMEN OBTAINED BY CLEAN CATCH PROCEDURE / Unknown 04/04/2025 8:40 AM CDT 04/05/2025 3:57 AM CDT us Franck Baltazar MD URINE ORDERABLES Final Re sult Performing Organization Address City/[facility]/ZIP Co de Phone Number [facility] [phone] [facility] [address] [place] [address] * (ABNORMAL) CBC WITH DIFFERENTIAL (04/04/2025 8:27 [...] [facility] Comment: Test Performed at: [facility] [address] [place] [address] Patti Rangel MD Blood 04/04/2025 8:27 AM CDT 04/05/2025 3:40 AM CDT Franck Baltazar MD HEMATOLOGY ORDERABLES Fin al Result Performing Organization Address [facility]/ZIP Co de Phone Number [facility] [phone] [facility] [address] [place] [address] * (ABNORMAL) HEMOGLOBIN A1C (04/04/2025 8:27 AM CDT) HEMOGLOBIN A1C 10.2(H) <5.7 % [facility] Comment: For someone without known diabetes, [...] [facility] Comment: Test Performed at: [facility] [address] [place] [address] Patti Rangel MD Blood 04/04/2025 8:27 AM CDT 04/05/2025 3:40 AM CDT Franck Baltazar MD CHEMISTRY ORDERABLES Keri l Result Performing Organization Address City/[facility]/ZIP Co de Phone Number [facility] [phone] [facility] [address] [place] [address] * (ABNORMAL) LIPID PANEL (04/04/2025 8:27 AM CDT) CHOLESTEROL 172 <200 mg/dL [facility] HDL 39(L) > OR = 50 mg/dL [facility] TRIGLYCERIDE 360(H) <150 mg/dL [facility] Comment: If a non-fasting specimen was collected, consider repeat triglyceride testing on a fasting specimen if clinically indicated. Charla et al. J. of Clin. Lipidol. 2015;9:129-169. LDL CALCULATED 85 mg/dL (calc) [facility] Comment: Reference range: <100 Desirable range <100 mg/dL for primary prevention; <70 mg/dL for patients with CHD or diabetic patients with > or = 2 CHD risk factors. LDL-C is now calculated using the Antonio-Espinal calculation, which is a validated novel method providing better accuracy than the Friedewald equation in the estimation of LDL-C. Antonio SS et al. ERIN. 2013;310(19): 5425-9517 (http://education.Playspace/faq/GOZ683) CHOL/HDL RATIO 4.4 <5.0 (calc) [facility] NON-HDL CHOLESTEROL 133(H) <130 mg/dL (calc) [facility] Comment: For patients with diabetes plus 1 major ASCVD risk factor, treating to a non-HDL-C goal of <100 mg/dL (LDL-C of <70 mg/dL) is considered a therapeutic option. Test Performed at: [facility] [address] [place] [address] Patti Rangel MD Blood 04/04/2025 8:27 AM CDT 04/05/2025 3:40 AM CDT Franck Baltazar MD CHEMISTRY ORDERABLES Keri l Result [facility] [phone] [facility] [address] [place] [address] * (ABNORMAL) COMPREHENSIVE METABOLIC PANEL (04/04/2025 8:27 [...] [facility] Comment: Test Performed at: [facility] [address] [place] [address] Patti Rangel MD Blood 04/04/2025 8:27 AM CDT 04/05/2025 3:40 AM CDT Franck Baltazar MD CHEMISTRY ORDERABLES Keri l Result [facility] [phone] [facility] [address] [place] [address] * CERV/VAG CYTO AGE BASED SCREEN PAP (04/06/2022 10:44 AM CDT) COMMENT (PAP): [facility] Comment: This order for age-based cervical cancer and STI screening follows ACOG guidelines(PB 168, 140, NRB620). See individual assays for performing site location. CLINICAL INFORMATION [facility] Comment:Information not prov ided LAST MENSTRUAL PERIOD [facility] Comment:INFORMATION NOT PROV IDED PREV PAP: [facility] Comment:INFORMATION NOT PROV IDED PREV BX: [facility] Comment:INFORMATION NOT PROV IDED SOURCE [facility] Comment:Endocervix ADEQUACY: [facility] Comment: Satisfactory for evaluation. Endocervical/transformation zone component present. Age and/or menstrual status not provided PAP INTERP [facility] Comment:Negative for intraep ithelial lesion or malignancy. COMMENT (PAP TEST) [facility] Comment: This Pap test has been evaluated with computer assisted technology. SYSTEMS MANAGEMENT CONSULTANT: [facility] Comment: ROC REARDON(ASCP) CT screening location: [place] [address] [place] [address] EXPLANATORY NOTE [facility] Comment: EXPLANATORY NOTE: The Pap is [...] information. HPV E6/E7 Not Detected Not Detected [facility] Comment: Methodology: Tripoler-Mediated Amplification This assay detects E6/E7 viral messenger RNA (mRNA) from 14 high-risk HPV types (16,18,31,33,35,39,45,51,52,56,58,59,66,68). The analytical performance characteristics of this assay have been determined by [facility]. The modifications have not been cleared or approved by the FDA. This assay has been validated pursuant to the CLIA regulations and is used for clinical purposes. For additional information, please refer to http://education.V-me Media.Sarmeks Tech/faq/NSZ249n8 (This link if provided for information/ educational purposes only.) Test Performed at: [facility] [id number] [place] [address] Aric Hancock D.O., MPH SL Genital SWAB OF ENDOCERVIX / Unknown 04/06/2022 10:44 AM CDT 04/07/2022 7:26 AM CDT Conchita Springer Elver OCEAN BIOLOGIST PATHOLOGY/CYTOLOGY ORDER JAI Final Result [facility] [phone] * DIABETES EYE EXAM (01/20/2022) us Abstract Provider HEALTH MAINTENANCE Final Resul t from Last 3 Months or Most Recently Relevant to Health Maintenance Insurance [facility] [place] [address] MEDICA BALANCE Digital Path EXCHANGE [id number] [phone] Care Teams Transmission Rebuilder Relationship Specialty Start Date End Date Franck Baltazar MD [address] [phone] PCP - General Family Practice 10/13/21
--- OUTSIDE RECORDS SUMMARY | 2025-06-25 10:18 | XMS_ITS | Encounter Summary ---
Author Organization [facility] Address [address] [place] [address] Care Team Providers Care College Or University Faculty Member Name Role Phone Unavailable Primary Care Provider Unavailabl e Encounter Details Date Type Department Care Team (Latest Contact Info) Description 12/18/2002 Outpatient Historical 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
--- OUTSIDE RECORDS SUMMARY | 2025-06-25 10:18 | XMS_ITS | Encounter Summary ---
Author Organization [facility] Address [address] [place] [address] Care Team Providers Care Dry Food Products Mixer Name Role Phone Unavailable Primary Care Provider Unavailabl e Encounter Details Date Type Department Care Team (Latest Contact Info) Description 07/24/2002 Outpatient Historical [address] [phone] Viviana Delgadillo MD [address], [address] TRACHEA/BRONCHUS DIS NEC (Primary Dx); ACUTE FRONTAL SINUSITIS; VACCINE FOR DISEASE NEC Social History Tobacco Use Types Packs/Day Years Used Date Smoking Tobacco: Never Assessed Comments Unknown Sex and Gender Information Value Date Recorded Sex Assigned at Not on file Legal Sex Female 3:31 AM ENROBER TENDER Gender Identity Not on file Sexual Orientation Not on file documented as of this encounter Plan of Treatment Not on file documented as of this encounter Visit Diagnoses Diagnosis Other diseases of trachea and bronchus, not elsewhere classified- Primary Acute frontal sinusitis Need for prophylactic vaccination and inoculation against other specified disease documented in this encounter
--- OUTSIDE RECORDS SUMMARY | 2025-06-25 10:18 | XMS_ITS | Encounter Summary ---
Author Organization [facility] Address [address] [place] [address] Care Team Providers Care Brazing Machine Operator Name Role Phone Unavailable Primary Care Provider Unavailabl e Encounter Details Date Type Department Care Team (Latest Contact Info) Description 06/19/2002 Outpatient Historical [address] [phone] Viviana Delgadillo MD [address], [address] ATTN DEFICIT W HYPERACT (Primary Dx); VACCINE FOR DISEASE NEC Social History Tobacco Use Types Packs/Day Years Used Date Smoking Tobacco: Never Assessed Comments Unknown Sex and Gender Information Value Date Recorded Sex Assigned at Not on file Legal Sex Female 3:31 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
--- OUTSIDE RECORDS SUMMARY | 2025-06-25 10:18 | XMS_ITS | Encounter Summary ---
Author Organization [facility] Address [address] [place] [address] Care Team Providers Care Alumnae Secretary Name Role Phone Unavailable Primary Care Provider Unavailabl e Encounter Details Date Type Department Care Team (Latest Contact Info) Description 01/26/2005 Outpatient Historical [facility] [address] [phone] Jess Perez, [facility] [facility] [address] [place] [address] ATTN DEFICIT W HYPERACT (Primary Dx); OPPOSITIONAL DEFIANT DISORDER Social History Tobacco Use Types Packs/Day Years Used Date Smoking Tobacco: Never Assessed Comments Unknown Sex and Gender Information Value Date Recorded Sex Assigned at Not on file 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
--- OUTSIDE RECORDS SUMMARY | 2025-06-25 10:18 | XMS_ITS | Encounter Summary ---
Author Organization [facility] Address [address] [place] [address] Care Team Providers Care Business Office Associate Name Role Phone Unavailable Primary Care Provider Unavailabl e Encounter Details Date Type Department Care Team (Latest Contact Info) Description 03/09/2005 Outpatient Historical [facility] [place] [address] [phone] Jess Perez, [facility] [facility] [address] [place] [address] ATTN DEFICIT W HYPERACT (Primary Dx); OPPOSITIONAL DEFIANT DISORDER Social History Tobacco Use Types Packs/Day Years Used Date Smoking Tobacco: Never Assessed Comments Unknown Sex and Gender Information Value Date Recorded Sex Assigned at Not on file 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
--- OUTSIDE RECORDS SUMMARY | 2025-06-25 10:18 | XMS_ITS | Encounter Summary ---
Author Organization [facility] Address [address] [place] [address] Care Team Providers Care Power Plant Electrician Name Role Phone Unavailable Primary Care Provider Unavailabl e Encounter Details Date Type Department Care Team (Latest Contact Info) Description 08/30/2001 Outpatient Historical [address] [phone] Viviana Delgadillo MD [address], [phone] Attention deficit disorder with hyperactivity(314.01 ) (Primary Dx) Social History Tobacco Use Types Packs/Day Years Used Date Smoking Tobacco: Never Assessed Comments Unknown Sex and Gender Information Value Date Recorded Sex Assigned at Not on file 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
--- OUTSIDE RECORDS SUMMARY | 2025-06-25 10:18 | XMS_ITS | Encounter Summary ---
Author Organization [facility] Address [address] [place] [address] Care Team Providers Care Paper Cone Grader Name Role Phone Unavailable Primary Care Provider Unavailabl e Encounter Details Date Type Department Care Team (Latest Contact Info) Description 01/01/2003 Outpatient Historical [facility] [address], [place] [phone] Jose Caicedo MD [address] [place] [phone] ATTN DEFICIT W HYPERACT (Primary Dx) Social History Tobacco Use Types Packs/Day Years Used Date Smoking Tobacco: Never Assessed Comments Unknown Sex and Gender Information Value Date Recorded Sex Assigned at Not on file 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
--- OUTSIDE RECORDS SUMMARY | 2025-06-25 10:18 | XMS_ITS | Encounter Summary ---
Author Organization [facility] Address [address] [place] [address] Care Team Providers Care Blood Bank Booking Clerk Name Role Phone Unavailable Primary Care Provider Unavailabl e Encounter Details Date Type Department Care Team (Latest Contact Info) Description 06/18/2001 Outpatient Historical 

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
[2025-06-25] MEDS: morphine 4 mg/mL SDV 1 mL IM (10:55)
== END 2025-06-25 12:35 | disposition home or self-care (01) ==
PROVIDERS: Emergency Provider Emergency Medicine; PCP Family Medicine
DX: M54.50 Low back pain, unspecified (principal); V89.2XXA Person injured in unspecified motor-vehicle accident, traffic, initial encounter; E11.9 Type 2 diabetes mellitus without complications
CPT/HCPCS: 72131; 96372; 99284; J2270; J9999

== ENCOUNTER 2025-07-16 09:30 | Outpatient (CLI) | payer BC, MEDICAID, SELFPAY ==
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
--- NOTE | 2025-07-16 09:47 | MR_ITS ---
WS: [id number] MRI THORACIC SPINE noncontrast HISTORY: MID BACK PAIN COMPARISON: None available. TECHNIQUE: Multiplanar sequences are performed in sagittal and axial planes. Normal thoracic alignment. No marrow edema or acute fracture. No signal abnormality in the cord or vertebral bodies. Disc spaces are well-maintained. Very mild disc bulging at C6-7. Very slight disc contact on the ventral cervical cord. T1-2: Normal. T2-3: Normal. T3-4: Normal. T4-5: Normal. T5-6: Normal. T6-7: Normal. T7-8: Normal. T8-9: Normal. T9-10: Normal. T10-11: Mild bilateral facet arthritis. Very minimal foraminal narrowing. T11-12: Shallow RIGHT foraminal disc protrusion. Mild facet arthritis. No stenosis. Paravertebral soft tissues are negative. MR/MR thoracic spin wo con* [id number] IMPRESSION: 1. No acute thoracic spine fractures. 2. No cord compression or cord edema. 3. Mild facet arthritis at T10-11 and T11-12. 4. No high-grade central or foraminal stenosis.
== END 2025-07-16 09:31 | disposition home or self-care (01) ==
LOC: RAD 09:31
PROVIDERS: PCP Family Medicine; Visit Provider Family Medicine
DX: M47.814 Spondylosis without myelopathy or radiculopathy, thoracic region (principal); M48.07 Spinal stenosis, lumbosacral region; S33.5XXA Sprain of ligaments of lumbar spine, initial encounter; X58.XXXA Exposure to other specified factors, initial encounter
CPT/HCPCS: 72146; 72148

== ENCOUNTER → 2025-07-24 08:34 | Day surgery (SDC) | payer BC, MEDICAID, SELFPAY ==
--- NOTE | 2025-07-23 17:44 | W.PM.OPSFHP ---
Same Day Surgery H&P Indication for Procedure/HPI DATE OF PROCEDURE: July 23, 2025 CHIEF COMPLAINT/INDICATIONFOR SURGICAL PROCEDURE: menorrhagia; desires permanent sterilization PREOP DIAGNOSIS: menorrhagia; desires permanent sterilization PLANNED PROCEDURE: Operation Date: 07/24/25 10:30 Proposed Procedures p Laparoscopic Salpingectomy 88161, 99395, 23656, 78801, Z30.2, N93.9, N80.9(Bilateral) - Satinder Melendrez MD s Hysteroscopy Hysteroscopy w/ Endometrial Sampling(Not Applicable) - Satinder Melendrez MD s Poylpectomy(Not Applicable) - Satinder Melendrez MD s Endometriosis Cauterization Endometrial Ablation(Not Applicable) - Satinder Melendrez MD Medications/Allergies* Home Medications ?Medication ?Instructions ?Recorded ?Confirmed ?Type empagliflozin 10 mg tablet 10 mg PO DAILY 06/03/25 07/23/25 History (Jardiance) semaglutide 0.25 mg or 0.5 mg (2 0.5 mg SUBCUT Q7D 06/16/25 07/23/25 History mg/3 mL) subcutaneous pen injector (Ozempic) albuterol sulfate 90 mcg/actuation 2 puff inhalation Q4H PRN 06/23/25 07/23/25 History aerosol inhaler shortness of breath or cough glipizide 10 mg tablet 20 mg PO BID 06/23/25 07/23/25 History gabapentin 100 mg capsule 100 mg PO TID 07/23/25 07/23/25 History Allergies/Adverse Reactions Allergy/AdvReac Type Severity Reaction Status Date / Time No Known Allergies Allergy Verified 07/23/25 11:40 Pertinent History/Comorbid Conditions* Medical History (Updated 07/01/25 @ 00:00 by ANDRIA Jett) Cough Seasonal allergies Type 2 diabetes mellitus Bronchitis No pertinent past medical history neghx:htn, thyroid, dvt/pe PCP: Dr. Demarco History of diabetes mellitus Abnormal uterine bleeding (AUB) Surgical History (Updated 05/04/22 @ 16:27 by Gloria Perez MD) No pertinent past surgical history Family History (Updated 05/04/22 @ 10:19 by Kori Vences LPN) Diabetes Father Mother Sister Breast cancer Grandmother paternal Hypertension Father Denies family history of Colon cancer Ovarian cancer Prostate cancer Heart disease Hyperlipidemia Bleeding disorder Uterine cancer Thyroid disease Stroke Social History Smoking and tobacco/nicotine status: unknown if used tobacco/nicotine Pertinent Exam Findings alert, oriented x 3, clear to auscultation bilaterally and regular rate & rhythm Recommendations Surgery/Procedure today Coding Level of Care Code Acute Code for Chg Fwd
[2025-07-24] VITALS (20 sets, daily range): BP systolic 114–155; BP diastolic 81–109; PULSE 90–117; RESP 18; TEMP 36.4–36.6; O2SAT 91–100; BMI 49.1
--- NOTE | 2025-07-24 10:10 | ANES.PREANE2 ---
Pre-Anesthetic Assessment Height/Weight: Height 1.65 m Weight 133.81 kg Temp Pulse Resp BP Pulse Ox O2 Del Method 97.5 F L 97 18 155/96 94 Room Air 07/24/25 09:36 07/24/25 09:36 07/24/25 09:36 07/24/25 09:36 07/24/25 09:36 07/24/25 09:36 Preop Diagnosis: desires permanent sterilization; menorrhagia Operation Date: 07/24/25 10:30 Proposed Procedures p Laparoscopic Salpingectomy 87451, 52522, 13395, 76756, Z30.2, N93.9, N80.9(Bilateral) - Satinder Melendrez MD s Hysteroscopy Hysteroscopy w/ Endometrial Sampling(Not Applicable) - Satinder Melendrez MD s Poylpectomy(Not Applicable) - Satinder Melendrez MD s Endometriosis Cauterization Endometrial Ablation(Not Applicable) - Satinder Melendrez MD Familial anesthetic complications: None Was Beta Mauro taken within 24 hours: N/A Was Clonidine taken within 24 hours: N/A Last intake: Intake Last Liquid Date 07/23/25 Last Liquid Time 21:00 Last Solid Date 07/23/25 Last Solid Time 21:00 Social No alcohol and No tobacco Exam alert, oriented x 3, clear to auscultation bilaterally and regular rate & rhythm Airway Mallampati: Class III Dentition: chipped Pulmonary Asthma Metabolic Diabetes Mellitus and Morbid Obesity Anesthetic Plan ASA status: 2 Anesthesia: General Risk of > 500 ml blood loss (7ml/kg in children): No Medications/Allergies Home Medications ?Medication ?Instructions ?Recorded ?Confirmed ?Last Taken ?Type empagliflozin 10 mg tablet 10 mg PO DAILY 06/03/25 07/23/25 06/25/25 History (Jardiance) semaglutide 0.25 mg or 0.5 mg (2 0.5 mg SUBCUT Q7D 06/16/25 07/23/25 07/14/25 History mg/3 mL) subcutaneous pen injector (Ozempic) albuterol sulfate 90 mcg/actuation 2 puff inhalation Q4H PRN 06/23/25 07/24/25 06/22/25 History aerosol inhaler shortness of breath or cough diclofenac sodium 75 mg 75 mg PO Q12H PRN pain #20 tabs 06/23/25 07/23/25 07/22/25 Rx tablet,delayed release glipizide 10 mg tablet 20 mg PO BID 06/23/25 07/23/25 06/25/25 History tizanidine 4 mg tablet 4 mg PO Q6H PRN muscle spasticity 06/23/25 07/23/25 07/22/25 Rx #20 tabs hydrocodone 5 mg-acetaminophen 325 1 tab PO Q6H PRN pain #14 tabs 06/25/25 07/23/25 2 Days Ago Rx mg tablet ~07/21/25 gabapentin 100 mg capsule 100 mg PO TID 07/23/25 07/24/25 3 Weeks Ago History ~07/03/25 Allergies Allergy/AdvReac Type Severity Reaction Status Date / Time No Known Allergies Allergy Verified 07/23/25 11:40 [facility] Anesthesia Medical History (Updated 07/01/25 @ 00:00 by ANDRIA Jett) Cough Seasonal allergies Type 2 diabetes mellitus Bronchitis No pertinent past medical history neghx:htn, thyroid, dvt/pe PCP: Dr. Demarco History of diabetes mellitus Abnormal uterine bleeding (AUB) Surgical History No pertinent past surgical history Family History Father Diabetes Hypertension Mother Diabetes Sister Diabetes Grandmother Breast cancer paternal Denies family history of Colon cancer Ovarian cancer Prostate cancer Heart disease Hyperlipidemia Bleeding disorder Uterine cancer Thyroid disease Stroke Social History Smoking and tobacco/nicotine status: unknown if used tobacco/nicotine Female Reproductive History Date of last menstrual period: 06/23/25
[2025-07-24] MEDS: midazolam 1 mg/mL INJ 2 mL 2 MG IVP (10:12)
[2025-07-24] MEDS: insulin regular-human 100 units/1 mL 10 UNIT IVP (10:22)
--- NOTE | 2025-07-24 10:45 | W.PM.OPSUD ---
Surgery/Procedure H&P Update DATE OF PROCEDURE: July 24, 2025 DATE H&P PERFORMED: 07/23/25 H&P UPDATE INFORMATION: I have reviewed H&P completed within last 30 days, I have examined patient prior to procedure and No changes to prior documentation PREOP DIAGNOSIS: desires permanent sterilization; menorrhagia PLANNED PROCEDURE: Operation Date: 07/24/25 10:30 Proposed Procedures p Laparoscopic Salpingectomy 14930, 69021, 42975, 87518, Z30.2, N93.9, N80.9(Bilateral) - Satinder Melendrez MD s Hysteroscopy Hysteroscopy w/ Endometrial Sampling(Not Applicable) - Satinder Melendrez MD s Poylpectomy(Not Applicable) - Satinder Melendrez MD s Endometriosis Cauterization Endometrial Ablation(Not Applicable) - Satinder Melendrez MD
--- NOTE | 2025-07-24 12:35 | P.OP_ITS ---
Operative Report Date of procedure: July 24, 2025 Pre-op diagnosis: desires permanent sterilization Abnormal uterine bleeding Post-op diagnosis: same Post-op findings: normal uterus, tubes, and ovaries Uterus sounded to 10 cm Normal endometrial cavity Minimal endometrial tissue Unable to perform endometrial ablation Procedure done: laparoscopic bilateral salpingectomy Hysteroscopy Curettage of uterus Implants: none Specimens removed/disposition: bilateral fallopian tubes endometrial curettings Surgeon: Satinder Melendrez MD Anesthesia: General Estimated blood loss (mL): 10 Complications: none Findings: see above Condition: stable Disposition: PACU Brief History: 34 y.o. desires permanent sterilization and with history of abnormal uterine bleeding. Procedure: The patient was taken to the OR and placed on the table. General endotracheal anesthesia was induced. The patient was then placed in dorsolithotomy position. The abdomen and perineum were then prepped and draped in the usual fashion. Due to the patient?s obesity, a 1 mm incision was made in the left upper quadrant 3 cm below the costal margin. A Veress needle was inserted. Pneumoperitoneum was achieved. The Veress needle was removed. A 5 mm subumbilical skin incision was made. A 5 mm trocar with sheath was then inserted into the peritoneal cavity under direct visualization with the laparoscope via the subumbilical incision. After confirming intraperitoneal position, two separate 5 mm incisions were made in the right and left mid-qu adrants. 5 mm trocars with sheaths were then inserted into the peritoneal cavity under direct visualization with the laparoscope. The uterus, tubes and ovaries were seen to be normal, as was the remainder of the pelvic cavity and the liver edge. The right fallopian tube was then identified to its fimbrial end. Starting at the fimbrial end, the mesosalpinx was then coagulated and cut using the Ligasure device. The right fallopian tube was excised and removed via one of the ports. This was sent to pathology. There was no bleeding seen. Similarly, the left fallopian tube was identified to its fimbrial end. The left fallopian tube was excised and removed, sent to pathology. There was no bleeding. All instruments were then removed from the peritoneal cavity after the pneumoperitoneum was allowed to escape. The skin incisions were closed using 3- O chromic in subcuticular fashion. Dermabond was applied. Following this, a speculum was placed in the vagina. The anterior lip of the cervix was grasped with a sharp-toothed tenaculum. The uterus was sounded to 10 cm. The cervix was serially dilated with Hegar dilators. . A hysteroscope was placed into the endometrial cavity. The endometrial cavity was seen to be somewhat flattened but normal. There were no polyps or fibroids. There was minimal endometrial tissue. The hysteroscope was then removed. Endometrial curettage was done with a sharp curette. Endometrial tissue was sent to pathology. A Novasure device was then inserted. However, several attempts at activating the device was unsuccessful. Endometrial ablation was then abandoned. Repeat hysteroscopy confirmed an intact endometrial cavity. The sharp-toothed tenaculum was removed. There was no bleeding from the endometrial cavity or cervix. The patient was then placed supine and awakened and taken to the PACU. Postop condition: stable EBL: 10 cc Sponge and instruments counts were normal x 2 Complications: none
[2025-07-24] MEDS: flumazenil 0.1 mg/mL SDV 5mL IV ×3 (13:53→14:24)
[2025-07-24 14:39] LABS: ABG PCO2 37.6 mmHg (35-45); ABG PH Result 7.39 (7.35-7.45); Alveolar-Arterial Oxygen Gradi 9.2 mmHg (5-10); Arterial Blood Gas Hematocrit 42.9 % (37-47); Blood Gas Allen Test Pos; Blood Gas LPM 2.0 %; Blood Gas Operator Identificat GD; Blood Gas Sample Site Radial, left; Blood Gas Sample Type Arterial; Carboxyhemoglobin 1.0 %THgb (0.4-20.1); Glucose Level-ABG 295.0 mg/dL (70-115); HCO3 ABG 22.6 mmol/L (22-26); Ionized Calcium Level - ABG 1.1 mmol/L (1.1-1.4); Methemoglobin 0.3 % (0.4-1.5); Oxygen Saturation ABG 96.9; PO2 ABG 80.3 mmHg (80.0-100.0); PO2 FiO2 Ratio Arterial Blood 286; Potassium Level - ABG 4.1 mmol/L (3.5-5.0); Sodium Level - ABG 135.0 mmol/L (131-143)
--- NOTE | 2025-07-24 14:40 | CT_ITS ---
WS: [id number] CT HEAD NONCONTRAST HISTORY: STROKE LIKE SYMPTOMS TECHNIQUE: Contiguous axial imaging performed through the brain. Bone and soft tissue windows. Sagittal and coronal reformats reviewed. All CT scans at [facility] use at least one of these dose optimization techniques: automated exposure control; mA and/or kV adjustment per patient size (includes targeted exams where dose is matched to clinical indication); or iterative reconstruction. DLP: COMPARISON: None available. No acute intracranial hemorrhage, midline shift or mass effect. No atrophy or prior infarcts or herniation. Ventricles: Normal size with no hydrocephalus. No inferior displacement of the cerebellar tonsils. Paranasal sinuses: As visualized are clear. Mastoid air cells: Well pneumatized. Calvarium and scalp: Skull is intact with no soft tissue edema or swelling. CT/CT head thrombolytic 30940 IMPRESSION: Negative head CT. Notified Dr. Zuluaga at 07/24/2025 2:49 PM.
--- NOTE | 2025-07-24 15:03 | SUR.EXTENDED ---
Received patient from PACU, lethargic and minimally responsive, sluggish to respond to questions and prompts. Responses while sluggish were appropriate. Vital signs stable with exception of first diastolic pressure, which resolved with reapplication of cuff. Blood sugar checked, 251. Surgical wounds assessed, dermabond intact no signs of bleeding noted. Dr. Melendrez checked on patient and assessed surgical wounds, no new orders given. After approximately 30 minutes with no progression of alertness a brief neuro assessment was performed and Dr. Dumont was consulted. 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 Patient also stated that she could not feel her lower extremities. Dr. Dumont assessed patient and ordered Flumazenil 0.1mg to reverse preop versed, and was called away for another consult. Medication did not appear to have any effect. RN continued to try and arouse patient with no progression from minimally responsive. Charge nurse Mercedez notified of situation, she reached out to AYLIN Hitchcock for additional assessment. AYLIN Hitchcock ordered narcan 0.4mg to be given. no change was noted. Dr. Dumont arrived and ordered 0.2mg Flumazenil. no change was noted. Dr. Dumont and AYLIN requested stroke team activation. 1427 Stroke team activated. Per Dr. Dumont [facility]'s ordered stat, respiratory notified. Stroke team (Elliott Hassan Gail), nursing magazine supervisor Yazmin and Abbie Paz arrived within approximately 3 minutes of activation. Patient moved to [facility] CT. Patient family told to proceed to ER. Dr. Melendrez notified.
--- NOTE | 2025-07-24 15:10 | SUR.PHASEI ---
Pt was slower to wake up in PACU, but once awake was able to verbalize her name, birthday, husbands name and discuss pain. She spoke in a quiet, but understandable voice. Pt reported her throat was sore. I explained how that was expected, once she was moved to OPS she could get a drink and that would likely help. Pt said she had back pain. Her OPS nurse reported to me the back pain was there pre op as well. Pt then stated her abd hurt. I explained that because she was still a bit sleepy and her O2 sat was 91 to 92 I wasn't comfortable giving her any IV pain medications, but that once she was moved back to OPS she could take a pain pill. She nodded and said ok. I asked her what she would like to drink once back in her room, she asked for a Sprite zero.
--- NOTE | 2025-07-24 15:14 | PM.MISC ---
Miscellaneous Note Purpose of Documentation: AMS Note: Patient has been out of surgery for 2 hrs almost. Notified by nursing staff still extremely lethargic beyond expected for length of time post surgery. Patient not cooperating with any neuro exam. Unable to answer any questions beyond feeble unintelligable vocalizations. Review of record indicates versed IV and dilaudid/fentanyl administered. Patient respiratory rate did not appear depressed, so first attempt was with reversal of versed with flumazenil 0.1 mg and then 0.2 mg IV, with little effect. Decision made then to attempt narcan 0.2 mg IV followed less than 3 minutes later by another narcan 0.2 mg. No appreciable affect other than an increase in grimacing. Called for stroke protocol d/t continued inability to perform neuroexam and order placed for stat ABG. Patient brought to CT.
[2025-07-24 16:21] LABS: OR HCG Qualitative Urine Negative (Negative)
== END | disposition home or self-care (01) ==
PROVIDERS: Anesthesiology; PCP Family Medicine; Visit Provider Obstetrics & Gynecology
PROC: (CPT 58661; principal; 2025-07-24 10:10)
PROC: 0UJD8ZZ Inspection of Uterus and Cervix, Via Natural or Artificial Opening Endoscopic (ICD-10-PCS; CPT 58555; 2025-07-24 10:10)
DX: Z30.2 Encounter for sterilization (principal); N93.9 Abnormal uterine and vaginal bleeding, unspecified; J45.909 Unspecified asthma, uncomplicated; E11.9 Type 2 diabetes mellitus without complications; E66.01 Morbid (severe) obesity due to excess calories; Z68.42 Body mass index [BMI] 45.0-49.9, adult
CPT/HCPCS: 58661; 58558; 36416; 36600; 70450; 80051; 81025; 82330; 82805; 82962; 88302; 88305; J0330; J1100; J1171; J1815; J1885; J2250; J2312; J2405; J2704; J3010; J3490; J7030; J9999

== ENCOUNTER 2025-07-24 14:33 | Inpatient (IN) | payer OTHER, BC, MEDICAID, SELFPAY ==
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
[2025-07-24] VITALS (7 sets, daily range): BP systolic 132–138; BP diastolic 82–95; PULSE 89–106; RESP 17–30; TEMP 36.9; O2SAT 94–96
--- NOTE | 2025-07-24 14:43 | ECG_ITS ---
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 Measurements Intervals [place] Rate: 105 P: 60 CT: 153 QRS: 49 QRSD: 94 T: 26 QT: 342 QTc: 453 Interpretive Statements SINUS TACHYCARDIA LOW QRS VOLTAGE IN PRECORDIAL LEADS [QRS DEFLECTION < 1.0 mV IN CHEST LEADS] PATTERN CONSISTENT WITH PULMONARY DISEASE No previous ECG available for comparison Electronically Signed On 07-25-2025 09:11:13 CDT by Dhiraj Benton M.D. [email or web address]
--- OUTSIDE RECORDS SUMMARY | 2025-07-24 14:43 | XMS_ITS | Encounter Summary ---
Author Organization [facility] Address [address] [place] [address] Care Team Providers Care Front Desk Lead Name Role Phone Unavailable Primary Care Provider Unavailabl e Encounter Details Date Type Department Care Team (Latest Contact Info) Description 06/18/2001 Outpatient Historical [facility] Medicine [place] [address] [address] Jose Caicedo MD [address] [place] [address] Other, multiple, and unspecified sites, insect bite, nonvenomous, infected(919.5) (Primary Dx) Social History Tobacco Use Types Packs/Day Years Used Date Smoking Tobacco: Never Assessed Comments Unknown Sex and Gender Information Value Date Recorded Sex Assigned at Not on file 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
--- OUTSIDE RECORDS SUMMARY | 2025-07-24 14:43 | XMS_ITS | Encounter Summary ---
Author Organization [facility] Address [address] [place] [address] Care Team Providers Care Beamer Operator Name Role Phone Unavailable Primary Care Provider Unavailabl e Encounter Details Date Type Department Care Team (Latest Contact Info) Description 10/31/2001 Outpatient Historical [address] [phone] Viviana Delgadillo MD [address], [address] ATTN DEFICIT W HYPERACT (Primary Dx); ACUTE PHARYNGITIS Social History Tobacco Use Types Packs/Day Years Used Date Smoking Tobacco: Never Assessed Comments Unknown Sex and Gender Information Value Date Recorded Sex Assigned at Not on file 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
--- OUTSIDE RECORDS SUMMARY | 2025-07-24 14:43 | XMS_ITS | Encounter Summary ---
Author Organization [facility] Address [address] [place] [address] Care Team Providers Care Business Project Manager Name Role Phone Unavailable Primary Care Provider Unavailabl e Encounter Details Date Type Department Care Team (Latest Contact Info) Description 11/30/2001 Outpatient Historical [facility] [address] [phone] Joan Ortiz MD [address] [place] [address] NASAL & SINUS DIS NEC (Primary Dx); NONINFEC GASTROENTERIT NEC Social History Tobacco Use Types Packs/Day Years Used Date Smoking Tobacco: Never Assessed Comments Unknown Sex and Gender Information Value Date Recorded Sex Assigned at Not on file 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
--- OUTSIDE RECORDS SUMMARY | 2025-07-24 14:43 | XMS_ITS | Encounter Summary ---
Author Organization [facility] Address [address] [place] [address] Care Team Providers Care Seam Closer Name Role Phone Unavailable Primary Care Provider Unavailabl e Encounter Details Date Type Department Care Team (Latest Contact Info) Description 09/26/2002 Outpatient Historical [address] [phone] Viviana Delgadillo MD [address] [place] [address], [address] ACUTE URI NOS (Primary Dx); ALLERGIC RHINITIS NOS; DERMATITIS NOS Social History Tobacco Use Types Packs/Day Years Used Date Smoking Tobacco: Never Assessed Comments Unknown Sex and Gender Information Value Date Recorded Sex Assigned at Not on file 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
--- OUTSIDE RECORDS SUMMARY | 2025-07-24 14:43 | XMS_ITS | Encounter Summary ---
Author Organization [facility] Address 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
--- OUTSIDE RECORDS SUMMARY | 2025-07-24 14:43 | XMS_ITS | Clinical Summary ---
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
--- OUTSIDE RECORDS SUMMARY | 2025-07-24 14:43 | XMS_ITS | Encounter Summary ---
Author Organization [facility] Address [address] [place] [address] Care Team Providers Care Director Investment Banking Name Role Phone Unavailable Primary Care Provider Unavailabl e Encounter Details Date Type Department Care Team (Latest Contact Info) Description 12/17/2002 Outpatient Historical [facility] Medicine [place] [address] [phone] Joan Ortiz MD [address] [place] [address] VACCINE FOR DISEASE NEC (Primary Dx) Social History Tobacco Use Types Packs/Day Years Used Date Smoking Tobacco: Never Assessed Comments Unknown Sex and Gender Information Value Date Recorded Sex Assigned at Not on file 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
--- OUTSIDE RECORDS SUMMARY | 2025-07-24 14:43 | XMS_ITS | Encounter Summary ---
Author Organization [facility] Address 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
--- OUTSIDE RECORDS SUMMARY | 2025-07-24 14:43 | XMS_ITS | Encounter Summary ---
Author Organization [facility] Address [address] [place] [address] Care Team Providers Care Finishing Powder Press Operator Name Role Phone Unavailable Primary Care Provider Unavailabl e Encounter Details Date Type Department Care Team (Latest Contact Info) Description 08/30/2001 Outpatient Historical [address] [phone] Viviana Delgadillo MD [address], [address] Attention deficit disorder with hyperactivity(314.01 ) (Primary Dx) Social History Tobacco Use Types Packs/Day Years Used Date Smoking Tobacco: Never Assessed Comments Unknown Sex and Gender Information Value Date Recorded Sex Assigned at Not on file 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
--- OUTSIDE RECORDS SUMMARY | 2025-07-24 14:43 | XMS_ITS | Encounter Summary ---
Author Organization [facility] Address [address] [place] [address] Care Team Providers Care Clinical Account Liaison Name Role Phone Unavailable Primary Care Provider Unavailabl e Encounter Details Date Type Department Care Team (Latest Contact Info) Description 07/24/2002 Outpatient Historical [address] [phone] Viviana Delgadillo MD [address], [address] TRACHEA/BRONCHUS DIS NEC (Primary Dx); ACUTE FRONTAL SINUSITIS; VACCINE FOR DISEASE NEC Social History Tobacco Use Types Packs/Day Years Used Date Smoking Tobacco: Never Assessed Comments Unknown Sex and Gender Information Value Date Recorded Sex Assigned at Not on file 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
--- OUTSIDE RECORDS SUMMARY | 2025-07-24 14:43 | XMS_ITS | Encounter Summary ---
Author Organization [facility] Address [address] [place] [address] Care Team Providers Care Mechanic Welder Name Role Phone Unavailable Primary Care Provider Unavailabl e Encounter Details Date Type Department Care Team (Latest Contact Info) Description 01/05/2001 Outpatient Historical [address] [phone] Viviana Delgadillo MD [address], [phone] Attention deficit disorder with hyperactivity(314.01 ) (Primary Dx); Benign neoplasm of skin, site unspecified Social History Tobacco Use Types Packs/Day Years Used Date Smoking Tobacco: Never Assessed Comments Unknown Sex and Gender Information Value Date Recorded Sex Assigned at Not on file 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
--- OUTSIDE RECORDS SUMMARY | 2025-07-24 14:43 | XMS_ITS | Encounter Summary ---
Author Organization [facility] Address 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 No answer. Left voice mail/message to return our call. If patient/caregiver calls back, contact center please get fax number for medical records to be sent. Viky MUELLER documented in this encounter Plan of Treatment Not on file documented as of this encounter Visit Diagnoses Not on filedocumented in this encounter Care Teams Airconditioning Drafting Officer Relationship Specialty Start Date End Date Franck Baltazar MD [address] [phone] PCP - General Family Practice 10/13/21 documented as of this encounter
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
--- OUTSIDE RECORDS SUMMARY | 2025-07-24 14:43 | XMS_ITS | Encounter Summary ---
Author Organization [facility] Address [address] [place] [address] Care Team Providers Care X Ray Equipment Servicer Name Role Phone Unavailable Primary Care Provider Unavailabl e Encounter Details Date Type Department Care Team (Latest Contact Info) Description 06/19/2002 Outpatient Historical [address] [phone] Viviana Delgadillo MD [address], [address] ATTN DEFICIT W HYPERACT (Primary Dx); VACCINE FOR DISEASE NEC Social History Tobacco Use Types Packs/Day Years Used Date Smoking Tobacco: Never Assessed Comments Unknown Sex and Gender Information Value Date Recorded Sex Assigned at Not on file 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
--- OUTSIDE RECORDS SUMMARY | 2025-07-24 14:44 | XMS_ITS | Encounter Summary ---
Author Organization [facility] Address [address] [place] [address] Care Team Providers Care Venetian Blind Maker Name Role Phone Unavailable Primary Care Provider Unavailabl e Encounter Details Date Type Department Care Team (Latest Contact Info) Description 04/22/[address] 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
--- OUTSIDE RECORDS SUMMARY | 2025-07-24 14:44 | XMS_ITS | Encounter Summary ---
Author Organization [facility] Address [address] [place] [address] Care Team Providers Care Core Shaper Name Role Phone Unavailable Primary Care Provider Unavailabl e Encounter Details Date Type Department Care Team (Latest Contact Info) Description 12/29/2004 Outpatient Historical [facility] Medicine [place] [address] [phone] Jess Perez, 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
--- OUTSIDE RECORDS SUMMARY | 2025-07-24 14:44 | XMS_ITS | Encounter Summary ---
Author Organization [facility] Address [address] [place] [address] Care Team Providers Care Manager Psychology Name Role Phone Unavailable Primary Care Provider Unavailabl e Encounter Details Date Type Department Care Team (Latest Contact Info) Description 01/01/2003 Outpatient Historical [facility] [address] [phone] Jose Caicedo MD [address] [place] [phone] ATTN DEFICIT W HYPERACT (Primary Dx) Social History Tobacco Use Types Packs/Day Years Used Date Smoking Tobacco: Never Assessed Comments Unknown Sex and Gender Information Value Date Recorded Sex Assigned at Not on file 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
--- OUTSIDE RECORDS SUMMARY | 2025-07-24 14:44 | XMS_ITS | Encounter Summary ---
Author Organization [facility] Address [address] [place] [address] Care Team Providers Care Aviation Electrical Technician Name Role Phone Unavailable Primary Care Provider Unavailabl e Encounter Details Date Type Department Care Team (Latest Contact Info) Description 12/22/2004 Outpatient Historical [facility] Medicine [place] [address] [phone] Jess Perez, [facility] [address] [place] [address] ATTN DEFICIT W HYPERACT (Primary Dx); OPPOSITIONAL DEFIANT DISORDER Social History Tobacco Use Types Packs/Day Years Used Date Smoking Tobacco: Never Assessed Comments Unknown Sex and Gender Information Value Date Recorded Sex Assigned at Not on file 

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
--- OUTSIDE RECORDS SUMMARY | 2025-07-24 14:44 | XMS_ITS | Encounter Summary ---
Author Organization [facility] Address [address] [place] [address] Care Team Providers Care Closet Builder Name Role Phone Unavailable Primary Care Provider Unavailabl e Encounter Details Date Type Department Care Team (Latest Contact Info) Description 12/18/2002 Outpatient Historical [facility] [address] [phone] Jose Caicedo MD [address] [place] [phone] ATTN DEFICIT W HYPERACT (Primary Dx); SPRAIN OF ANKLE NOS Social History Tobacco Use Types Packs/Day Years Used Date Smoking Tobacco: Never Assessed Comments Unknown Sex and Gender Information Value Date Recorded Sex Assigned at Not on file 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
--- OUTSIDE RECORDS SUMMARY | 2025-07-24 14:44 | XMS_ITS | Encounter Summary ---
Author Organization [facility] Address [address] [place] [address] Care Team Providers Care Tin Worker Name Role Phone Unavailable Primary Care Provider Unavailabl e Encounter Details Date Type Department Care Team (Latest Contact Info) Description 01/05/2005 Outpatient Historical [facility] Medicine [place] [address] [phone] Jess Perez, [facility] [facility] [address] [place] [address] ATTN DEFICIT W HYPERACT (Primary Dx); OPPOSITIONAL DEFIANT DISORDER Social History Tobacco Use Types Packs/Day Years Used Date Smoking Tobacco: Never Assessed Comments Unknown Sex and Gender Information Value Date Recorded Sex Assigned at Not on file 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
--- OUTSIDE RECORDS SUMMARY | 2025-07-24 14:44 | XMS_ITS | Encounter Summary ---
Author Organization [facility] Address [address] [place] [address] Care Team Providers Care Ball Winder Name Role Phone Unavailable Primary Care Provider Unavailabl e Encounter Details Date Type Department Care Team (Latest Contact Info) Description 03/09/2005 Outpatient Historical [facility] Medicine [place] [address] [phone] Jess Perez, [facility] [address] [facility] [address] [place] [address] ATTN DEFICIT W HYPERACT (Primary Dx); OPPOSITIONAL DEFIANT DISORDER Social History Tobacco Use Types Packs/Day Years Used Date Smoking Tobacco: Never Assessed Comments Unknown Sex and Gender Information Value Date Recorded Sex Assigned at Not on file 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
--- OUTSIDE RECORDS SUMMARY | 2025-07-24 14:44 | XMS_ITS | Encounter Summary ---
Author Organization [facility] Address [address] [place] [address] Care Team Providers Care Ornamental Iron Worker Helper Name Role Phone Unavailable Primary Care Provider Unavailabl e Encounter Details Date Type Department Care Team (Latest Contact Info) Description 01/26/2005 Outpatient Historical [facility] Medicine [place] [address] [phone] Jess Perez, [facility] [address] [place] [address] ATTN DEFICIT W HYPERACT (Primary Dx); OPPOSITIONAL DEFIANT DISORDER Social History Tobacco Use Types Packs/Day Years Used Date Smoking Tobacco: Never Assessed Comments Unknown Sex and Gender Information Value Date Recorded Sex Assigned at Not on file 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
--- NOTE | 2025-07-24 14:52 | CT_ITS ---
WS: [id number] CT ANGIOGRAM CEREBRAL AND CAROTID ARTERIES HISTORY: cva TECHNIQUE: CT angiogram is performed of the carotid and cerebral arteries. During arterial injection imaging is obtained from the skull vertex to the aortic arch in 1.25 mm imaging. Coronal and sagittal reformats are submitted. Additional multi planar reformats of the carotid and cerebral arteries are submitted, MIP imaging also reviewed. NASCET criteria utilized. All CT scans at [facility] use at least one of these dose optimization techniques: automated exposure control; mA and/or kV adjustment per patient size (includes targeted exams where dose is matched to clinical indication); or iterative reconstruction. CONTRAST: Omnipaque 350; 100 mL IV. DLP: 1665.95 mGy.cm COMPARISON: None available. Carotid Angiogram: Right carotid: Common carotid artery: Arises normally from the innominate artery. No significant plaque or stenosis. Internal carotid artery: No plaque or stenosis. External carotid artery: Patent. Left carotid: Common carotid artery: Arises normally from the aorta. No significant plaque or stenosis. Internal carotid artery: No plaque or stenosis. External carotid artery: Patent. Right vertebral artery: Unremarkable. Left vertebral artery: Unremarkable. Arises normally from the subclavian artery. Subclavian arteries: No stenosis or significant abnormality. Upper thorax: Dependent changes in the upper lung hernandes from atelectasis and poor inspiration. Thyroid gland: Normal. Osseous structures: Unremarkable. CEREBRAL ANGIOGRAM: Intracranial vertebral arteries: Normal with no significant atherosclerosis. Basilar artery: No significant stenosis or occlusion. No aneurysm. Intracranial Internal carotid arteries: Demonstrates no significant stenosis or plaque. Middle cerebral arteries: Very slight irregularity of the middle cerebral arteries due to mild motion artifact. No occlusion or thrombus identified. No significant paucity of vessels in the distal MCA territories. Anterior cerebral arteries and ACOM: Normal. Posterior cerebral arteries and PCOM's: Normal. Small caliber LEFT posterior communicating artery. Normal dural venous enhancement. There is a small caliber LEFT transverse sinus and sigmoid sinus but no thrombus identified. Mastoid air cells: Normal. Paranasal sinuses: Normal. Calvarium: Normal. CT/CT angio headneck* [id number] IMPRESSION: 1. No cervical carotid artery stenosis or thrombus. No dissection. 2. No intracranial occlusions or aneurysms. 3. Small caliber LEFT transverse sinus and sigmoid sinus, normal variant. No t hrombus identified. 4. Unremarkable [place].
--- NOTE | 2025-07-24 14:53 | CT_ITS ---
WS: [id number] CT HEAD WITH CONTRAST HISTORY: weakness TECHNIQUE: Additional imaging performed in axial images status post IV contrast. Bone and soft tissue windows are reviewed. All CT scans at [facility] use at least one of these dose optimization techniques: automated exposure control; mA and/or kV adjustment per patient size (includes targeted exams where dose is matched to clinical indication); or iterative reconstruction. CONTRAST: Omnipaque 350; 100 mL IV. DLP: 1665.95 mGy.cm COMPARISON: Noncontrast CT head 07/24/2025 Postcontrast imaging has been performed. There are no enhancing masses or vascular malformations identified. Normal ventricles. No intra displacement cerebellar tonsils. No enhancing mass or vascular malformations identified. Normal enhancement of the RIGHT dural venous sinus and sigmoid sinus. Is a small caliber LEFT transverse sinus and sigmoid sinus which is probably congenital. There is additional imaging including CT angiogram of the head and neck being performed in this area will be better evaluated at that time. Limited evaluation [place] but no abnormality noted in the central brain. Paranasal sinuses as visualized: Clear. Mastoid air cells: Clear. Calvarium and scalp: Intact. CT/CT head w con [id number] IMPRESSION: 1. No interval progression of edema. No midline shift or mass effect. 2. Small caliber LEFT transverse sinus. Additional head and neck CTA will be p erformed. Transverse sinus will be further evaluated on the additional CT angio gram to ensure there is no dural sinus thrombosis. 3. No enhancing masses.
[2025-07-24 15:06] LABS: Hematocrit 41.8 % (36-47); Hemoglobin 13.70 g/dL (11.27-16.99); Mean Corpuscular HGB Conc 32.8 g/dL (30-55); Mean Corpuscular Hemoglobin 29.6 pg (27-33); Mean Corpuscular Volume 90.3 fl (85-98); Nucleated Red Blood Cells % 0 %; Platelet Count 301 10^3/cmm (157-399); Red Blood Count 4.63 10^6/uL (3.85-5.65); White Blood Count 10.39 10^3/uL (3.29-11.43)
--- NOTE | 2025-07-24 15:07 | CT_ITS ---
WS: [id number] CT CHEST ANGIOGRAPHY WITH REFORMATS HISTORY: sob TECHNIQUE: Contiguous axial images are obtained through the chest during arterial injection of intravenous contrast. Images are reconstructed to evaluate the pulmonary arteries. MIP imaging also reviewed. All CT scans at [facility] use at least one of these dose optimization techniques: automated exposure control; mA and/or kV adjustment per patient size (includes targeted exams where dose is matched to clinical indication); or iterative reconstruction. CONTRAST: Omnipaque 350; 100 mL IV. DLP: 453.40 mGy.cm COMPARISON: 06/23/2025 Good opacification of the pulmonary arteries. Lung volumes are decreased. No pulmonary embolism identified through the lobar and some segmental branches. Dense areas of consolidation posteriorly in the lower lung hernandes and in the posterior upper lungs. No pneumothorax. Normal aorta and pulmonary artery. Heart size is normal. No adenopathy. Hepatic steatosis. The liver is probably enlarged but incompletely included on this examination. Small hiatal hernia. No bone destruction. CT/CT angio chest PE protcl [id number] IMPRESSION: 1. No central pulmonary emboli. 2. Study is compromised by patient's body habitus. 3. Dense areas of consolidation greatest at the lung bases. Most likely atelec tasis. Component of aspiration pneumonia is not excluded. 4. No pneumothorax. 5. Hepatic steatosis.
--- NOTE | 2025-07-24 15:11 | ED_ITS ---
HPI - General Adult 2 General: Chief complaint: General Medical Stated complaint: stroke Time Seen by Provider: 07/24/25 14:42 Source: patient Mode of arrival: ambulatory Limitations: no limitations History of Present Illness: 34-year-old female who is here as a stro ke alert. Patient was having an outpatient surgery a salpingo ectomy patient had went into the OR 10 she had came out at 12 has not really woken up since the surgery. Patient will arouse to some painful stimuli and states she feels weak and cannot feel her legs they called a stroke alert out of Outpatient Surgery and brought to the ER. Patient not really able to give me much currently besides just awaken to painful stimuli. Per surgery staff there is no complications during the surgery. Related Data Home Medications ?Medication ?Instructions ?Recorded ?Confirmed empagliflozin 10 mg tablet 10 mg PO DAILY 06/03/2502/11 (Jardiance) semaglutide 0.25 mg or 0.5 mg (2 0.5 mg SUBCUT Q7D 07/23/25 mg/3 mL) subcutaneous pen injector ([employer]) albuterol sulfate 90 mcg/actuation 2 puff inhalation Q 4H PRN 06/23/25 07/24/25 aerosol inhaler shortness of breath or cough glipizide 10 mg tablet 20 mg PO BID 06/23/25 gabapentin 100 mg capsule 100 mg PO TID 07/23/2507/24 Previous Rx's ?Medication ?Instructions ?Recorded diclofenac sodium 75 mg 75 mg PO Q12H PRN pain #20 t abs 06/23/25 tablet,delayed release tizanidine 4 mg tablet 4 mg PO Q6H PRN muscle spast icity 06/23/25 #20 tabs hydrocodone 5 mg-acetaminophen 325 1 tab PO Q6H PRN pa in #14 tabs 06/25/25 mg tablet Allergies Allergy/AdvReac Type Severity Reaction Status Date / Time No Known Allergies Allergy Verified 07/23/25 11:40 Review of Systems 2 General: Reports: ROS unobtainable due to mental status PFSH ED 2 PFSH: Medical History Cough Seasonal allergies Type 2 diabetes mellitus Bronchitis No pertinent past medical history neghx:htn, thyroid, dvt/pe PCP: Dr. Demarco History of diabetes mellitus Abnormal uterine bleeding (AUB) Surgical History No pertinent past surgical history Family History Father Diabetes Hypertension Mother Diabetes Sister Diabetes Grandmother Breast cancer paternal Denies family history of Colon cancer Ovarian cancer Prostate cancer Heart disease Hyperlipidemia Bleeding disorder Uterine cancer Thyroid disease Stroke Social History Smoking and tobacco/nicotine status: unknown if used tobacco/nicotine Physical Exam 2 Const: COMMON NORMALS: negative for patient oriented x3 HENMT: COMMON NORMALS: normocephalic and atraumatic HEAD & SCALP: n ormocephalic and atraumatic Eye: COMMON NORMALS: conjunctivae normal CONJUNCTIVA: Yes conjunctivae normal Neck/C-Spine: COMMON NORMALS: full ROM and supple Chest: COMMONS NORMALS: normal inspection of the chest Resp: COMMON NORMALS: normal respiratory effort, No retractions, No use of accessory muscles and clear to auscultation bilaterally AUSCULTATION: clear to auscultation bilaterally Cardio: COMMON NORMALS: regular rate, regular rhythm and No murmurs present (Cardio) RATE: regular rate RHYTHM: regular rhythm GI: COMMON NORMALS: Normal to inspection, nondistended, normoactive bowel sounds present, Soft to palpation, non-tender and no masses PALPATION: Yes Soft to palpation Extremity: COMMON NORMALS: normal to inspection and full ROM Neuro: COMMON NORMALS: negative for patient oriented x3 OTHER: only arouses to painful to stimuli Psych: COMMON NORMALS: negative for mental status grossly normal Skin: COMMON NORMALS: no rashes or lesions noted and no wounds GENERAL SKIN EXAM: no rashes or lesions noted Course 2 Reevaluation(s): Reevaluation #1: Patient is now awake answering all my questions appropriately she states that she has numbness from the knees down and feels like she cannot move her feet Time: 15:17 Vital Signs: Vital signs: Vital Signs Temperature 98.4 F 07/24/25 15:03 Pulse Rate 89 07/24/25 16:00 Respiratory Rate 30 H 07/24/25 16:22 Blood Pressure 136/82 07/24/25 16:00 Pulse Oximetry 95 07/24/25 16:22 Oxygen Delivery Me thod Room Air 07/24/25 16:00 Oxygen Flow Rate 2 07/24/25 14:57 [facility] - General Adult Medical Decision Making Patient presents as a stroke alert after surgery patient's last known normal was 10 AM so she is out of window for any treatment and had a recent surgery. Imaging here shows no acute abnormalities has atelectasis on her CT chest did give antibiotics spoke to hospitalist will admit for observation. Medical Records I reviewed the patient's medical records. Lab Data I reviewed the patient's lab results. 07/24/25 15:01 07/24/25 15:01 Radiology Impressions Head/Neck CTA 07/24/25 14:52 IMPRESSION: 1. No cervical carotid artery stenosis or thrombus. No dissection. 2. No intracranial occlusions or aneurysms. 3. Small caliber LEFT transverse sinus and sigmoid sinus, normal variant. No thrombus identified. 4. Unremarkable saxman of [place] CT 07/24/25 14:53 IMPRESSION: 1. No interval progression of edema. No midline shift or mass effect. 2. Small caliber LEFT transverse sinus. Additional head and neck CTA will be performed. Transverse sinus will be further evaluated on the additional CT angiogram to ensure there is no dural sinus thrombosis. 3. No enhancing masses. Chest CTA 07/24/25 15:07 IMPRESSION: 1. No central pulmonary emboli. 2. Study is compromised by patient's body habitus. 3. Dense areas of consolidation greatest at the lung bases. Most likely atelectasis. Component of aspiration pneumonia is not excluded. 4. No pneumothorax. 5. Hepatic steatosis. Lumbar Spine CT 07/24/25 15:16 IMPRESSION: 1. Study is compromised by patient's body habitus. 2. No acute lumbar spine fracture. 3. Chronic bilateral sacroiliitis. 4. Minimal disc bulging at L5-S1 with mild contact upon the S1 nerve roots but no displacement. Thoracic Spine CT 07/24/25 15:16 IMPRESSION: 1. Scoliosis thoracic spine. No acute or remote thoracic spine fractures. 2. Dense areas of consolidation posteriorly in the lungs and greatest at the lung bases. Atelectasis versus developing pneumonia. As there has been recent intubation aspiration pneumonia should be considered as a possible etiology. Laboratory Results WBC 10.39 10^3/uL (3.29-11.43) 07/24/25 15:01 RBC 4.63 10^6/uL (3.85-5.65) 07/24/25 15:01 Hgb 13.70 g/dL (11.27-16.99) 07/24/25 15:01 Hct 41.8 % (36-47) 07/24/25 15:01 MCV 90.3 fl (85-98) 07/24/25 15:01 MCH 29.6 pg (27-33) 07/24/25 15:01 MCHC 32.8 g/dL (30-55) 07/24/25 15:01 RDW 13.0 % (12.1-15.1) 07/24/25 15:01 Plt Count 301 10^3/cmm (157-399) 07/24/25 15:01 MPV 9.9 fL (7.4-10.4) 07/24/25 15:01 Neut % (Auto) 86.8 % 07/24/25 15:01 Lymph % (Auto) 10.8 % 07/24/25 15:01 Dent % (Auto) 1.1 % 07/24/25 15:01 Eos % (Auto) 0.5 % 07/24/25 15:01 Baso % (Auto) 0.3 % 07/24/25 15:01 Neut # (Auto) 9.03 10^3/uL (1.8-7.7) H 07/24/25 15:01 Lymph # (Auto) 1.1 10^3/uL (0.8-4.8) 07/24/25 15:01 Dent # (Auto) 0.1 10^3/uL (0.2-0.9) L 07/24/25 15:01 Eos # (Auto) 0.1 10^3/uL (0.0-0.8) 07/24/25 15:01 Baso # (Auto) 0.0 10^3/uL (0.0-0.1) 07/24/25 15:01 Nucleated RBC % (auto) 0 % 07/24/25 15:01 Nucleated RBCs # 0.0 /100WBC 07/24/25 15:01 PT 12.90 SECONDS (12.1-14.9) 07/24/25 15:01 INR 0.91 (0.8-1.2) 07/24/25 15:01 APTT 25.1 SECONDS (23.9-36.7) 07/24/25 15:01 Sodium 135 mmol/L (136-145) L 07/24/25 15:01 Potassium 4.3 mmol/L (3.5-5.1) 07/24/25 15:01 Chloride 98 mmol/L (98-107) 07/24/25 15:01 Carbon Dioxide 21 mmol/L (22-29) L 07/24/25 15:01 Anion Gap 20.3 (5-19) H 07/24/25 15:01 BUN 7 mg/dL (6-20) 07/24/25 15:01 Creatinine 0.6 mg/dL (0.5-0.9) 07/24/25 15:01 GFR Calculation 114.4 mL/min (90-130) 07/24/25 15:01 Glucose 299 mg/dL (65-115) H 07/24/25 15:01 Calculated Osmolality 289 mOsm/kg (285-295) 07/24/25 15:01 Calcium 8.9 mg/dL (8.5-10.5) 07/24/25 15:01 Total Bilirubin 0.3 mg/dL (0.15-1.2) 07/24/25 15:01 AST 19 U/L (0-32) 07/24/25 15:01 ALT 22 U/L (0-33) 07/24/25 15:01 Alkaline Phosphatase 79 U/L (35-105) 07/24/25 15:01 Total Protein 7.8 g/dL (6.6-8.7) 07/24/25 15:01 Albumin 4.0 g/dL (3.5-5.2) 07/24/25 15:01 Globulin 3.8 g/dL (1.3-4.6) 07/24/25 15:01 HCG, Qual Negative (Negative) 07/24/25 15:01 Amorphous Sediment Not Reportable 07/24/25 16:09 All radiology interpretation(s) finalized by discharge EKG Data EKG 1: I personally reviewed and interpreted this EKG as follows: EKG interpretation date: 07/24/25 EKG interpretation time: 14:50 Interpretation: sinus tach hr [address] elevation qrs 94 qtc 403 Computer generated interpretation: Head/Neck CTA 07/24/25 14:52 IMPRESSION: 1. No cervical carotid artery stenosis or thrombus. No dissection. 2. No intracranial occlusions or aneurysms. 3. Small caliber LEFT transverse sinus and sigmoid sinus, normal variant. No thrombus identified. 4. Unremarkable saxman of [place]. [place] CT 07/24/25 14:53 IMPRESSION: 1. No interval progression of edema. No midline shift or mass effect. 2. Small caliber LEFT transverse sinus. Additional head and neck CTA will be performed. Transverse sinus will be further evaluated on the additional CT angiogram to ensure there is no dural sinus thrombosis. 3. No enhancing masses. Chest CTA 07/24/25 15:07 IMPRESSION: 1. No central pulmonary emboli. 2. Study is compromised by patient's body habitus. 3. Dense areas of consolidation greatest at the lung bases. Most likely atelectasis. Component of aspiration pneumonia is not excluded. 4. No pneumothorax. 5. Hepatic steatosis. Lumbar Spine CT 07/24/25 15:16 IMPRESSION: 1. Study is compromised by patient's body habitus. 2. No acute lumbar spine fracture. 3. Chronic bilateral sacroiliitis. 4. Minimal disc bulging at L5-S1 with mild contact upon the S1 nerve roots but no displacement. Thoracic Spine CT 07/24/25 15:16 IMPRESSION: 1. Scoliosis thoracic spine. No acute or remote thoracic spine fractures. 2. Dense areas of consolidation posteriorly in the lungs and greatest at the lung bases. Atelectasis versus developing pneumonia. As there has been recent intubation aspiration pneumonia should be considered as a possible etiology. Discharge Plan Discharge Patient Disposition: Admitted As Inpatient Clinical Impression: CVA (cerebrovascular accident) Condition: Stable Coding Level of Care Code ED [employer]ovator Machine Operator for Estephania Jack
--- NOTE | 2025-07-24 15:16 | CT_ITS ---
WS: [id number] CT THORACIC SPINE HISTORY: low back pain TECHNIQUE: Contiguous 2.5 mm axial images are reviewed to thoracic spine. Images are reformatted in sagittal and coronal planes. All CT scans at [facility] use at least one of these dose optimization techniques: automated exposure control; mA and/or kV adjustment per patient size (includes targeted exams where dose is matched to clinical indication); or iterative reconstruction. DLP: 2006.15 mGy.cm COMPARISON: Prior MRI thoracic spine 07/16/2025 Mild curvature thoracic spine. No acute thoracic vertebral body fractures. Facet joints are normally aligned. No transverse process or spinous process fractures. Visualized ribs are normal. Lung volumes are decreased. Dependent changes bilaterally would probably improved with better inspiratory effort. More focal consolidations at the lung bases. No pneumothorax. No central stenosis. No disc protrusions are identified. CT/CT thoracic spin wo con* [id number] IMPRESSION: 1. Scoliosis thoracic spine. No acute or remote thoracic spine fractures. 2. Dense areas of consolidation posteriorly in the lungs and greatest at the l abelino bases. Atelectasis versus developing pneumonia. As there has been recent in tubation aspiration pneumonia should be considered as a possible etiology.
--- NOTE | 2025-07-24 15:16 | CT_ITS ---
WS: [id number] CT LUMBAR SPINE, noncontrast. HISTORY: low back pain TECHNIQUE: Contiguous 2.0 mm axial imaging are performed. Sagittal and coronal reformats are submitted and reviewed. All CT scans at [facility] use at least one of these dose optimization techniques: automated exposure control; mA and/or kV adjustment per patient size (includes targeted exams where dose is matched to clinical indication); or iterative reconstruction. IV contrast: None DLP: 2006.15 mGy.cm COMPARISON: None available. Normal lumbar alignment with no loss of disc space height or vertebral body height. No fractures. Disc spaces are well-maintained. 5 lumbar type vertebral bodies. S1 appears partially lumbarized. L1-2: Normal. L2-3: Normal. L3-4: Mild ligamentum flavum and facet arthritis. No high-grade stenosis. L4-5: Mild disc bulging and facet arthritis. No high-grade stenosis. L5-S1: Mild annular disc bulging with disc contacting but not displacing the S1 nerve roots. Mild bilateral foraminal narrowing. Partial sacralization L5-S1 on the RIGHT. Bilateral sacroiliitis. Sclerosis bilaterally involving the iliac sides of the SI joints, RIGHT greater than RIGHT. Similar to the study of 06/25/2025 CT/CT lumbar spine wo con* [id number] IMPRESSION: 1. Study is compromised by patient's body habitus. 2. No acute lumbar spine fracture. 3. Chronic bilateral sacroiliitis. 4. Minimal disc bulging at L5-S1 with mild contact upon the S1 nerve roots but no displacement.
[2025-07-24 15:17] LABS: INR 0.91 (0.8-1.2); Partial Thromboplastin Time 25.1 SECONDS (23.9-36.7); Prothrombin Time 12.90 SECONDS (12.1-14.9)
[2025-07-24 15:22] LABS: Alanine Aminotransferase 22 U/L (0-33); Albumin Level 4.0 g/dL (3.5-5.2); Alkaline Phosphatase 79 U/L (35-105); Anion Gap 20.3 (5-19); Aspartate Amino Transferase 19 U/L (0-32); Blood Urea Nitrogen 7 mg/dL (6-20); Calcium 8.9 mg/dL (8.5-10.5); Carbon Dioxide 21 mmol/L (22-29); Chloride 98 mmol/L (98-107); Globulin 3.8 g/dL (1.3-4.6); Glucose 299 mg/dL (65-115); Osmolality Calculated 289 mOsm/kg (285-295); Potassium 4.3 mmol/L (3.5-5.1); Sodium 135 mmol/L (136-145); Total Protein 7.8 g/dL (6.6-8.7)
[2025-07-24 15:26] LABS: HCG, Serum Qual Negative (Negative)
[2025-07-24] MEDS: morphine 4 mg/mL SDV 1 mL IVP (16:22)
[2025-07-24] MEDS: ondansetron 2 mg/ML SDV 2 mL 4 MG IVP (16:23)
--- NOTE | 2025-07-24 16:24 | PC.NURSE ---
PT is awake and alert at this time. able to answer questions. PT does not have any unilateral weakness, but does seem to have weakness in both lower extremities. 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
[2025-07-24] MEDS: cefTRIAXone 1,000 mg SDV 1000 MG IVP (16:28)
[2025-07-24 16:42] LABS: Glucose Urine UA 2+ (Normal); Nitrate Urine Negative (Negative)
[2025-07-24 16:44] LABS: Add Urine Microscopic? YES
[2025-07-24 16:49] LABS: PCP Screen Urine Negative (Negative); Specific Gravity, Urine 1.042 (1.005-1.030)
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
[2025-07-24] MEDS: piperacillin-tazobactam 3.375 GM in sodium chloride 0.9% (plus) 50 ML IV (18:15)
[2025-07-24 18:59] LABS: Procalcitonin 0.04 ng/mL (0-0.5); Thyroid Stimulating Hormone 1.53 uIU/mL (0.27-4.20)
[2025-07-24] MEDS: morphine 4 mg/mL SDV 1 mL 2 MG IVP (20:03)
[2025-07-24 20:13] LABS: Estmated Average Glucose 220; Hemoglobin A1C 9.3 % (4.0-6.0)
[2025-07-24 20:29] LABS: Lactic Sepsis W/Reflex 3.9 mmol/L (0.5-2.2)
[2025-07-24 21:51] LABS: Reflex Lactate Order REFLEX LACTIC ORDERD
[2025-07-25] VITALS (31 sets, daily range): BP systolic 103–151; BP diastolic 75–96; PULSE 71–109; RESP 16–40; TEMP 36.6–36.9; O2SAT 2–98
[2025-07-25 00:03] LABS: Lactic Acid level (Lactate) 3.8 mmol/L (0.5-2.2)
[2025-07-25] MEDS: morphine 4 mg/mL SDV 1 mL 2 MG IVP ×3 (00:26→10:40)
[2025-07-25] MEDS: piperacillin-tazobactam 3.375 GM in sodium chloride 0.9% (plus) 50 ML IV ×3 (02:09→17:21)
[2025-07-25 05:32] LABS: Hematocrit 38.3 % (36-47); Hemoglobin 12.10 g/dL (11.27-16.99); Mean Corpuscular HGB Conc 31.6 g/dL (30-55); Mean Corpuscular Hemoglobin 29.2 pg (27-33); Mean Corpuscular Volume 92.5 fl (85-98); Nucleated Red Blood Cells % 0 %; Platelet Count 318 10^3/cmm (157-399); Red Blood Count 4.14 10^6/uL (3.85-5.65); White Blood Count 10.40 10^3/uL (3.29-11.43)
[2025-07-25 06:07] LABS: Alanine Aminotransferase 18 U/L (0-33); Albumin Level 3.2 g/dL (3.5-5.2); Alkaline Phosphatase 60 U/L (35-105); Anion Gap 22.2 (5-19); Blood Urea Nitrogen 6 mg/dL (6-20); Calcium 8.0 mg/dL (8.5-10.5); Carbon Dioxide 16 mmol/L (22-29); Chloride 101 mmol/L (98-107); Creatinine Clr Calc Pharmacy 223.1857; Globulin 3.3 g/dL (1.3-4.6); Glucose 256 mg/dL (65-115); Magnesium 1.8 mg/dL (1.7-2.3); Osmolality Calculated 286 mOsm/kg (285-295); Potassium 4.2 mmol/L (3.5-5.1); Sodium 135 mmol/L (136-145); Total Protein 6.5 g/dL (6.6-8.7)
[2025-07-25 06:08] LABS: Aspartate Amino Transferase 17 U/L (0-32)
--- NOTE | 2025-07-25 08:00 | MR_ITS ---
WS: [id number] MRI LUMBAR SPINE NONCONTRAST TECHNIQUE: Sagittal T1, T2 and STIR imaging. Axial T1 and T2 imaging. CLINICAL INFORMATION: cauda equina COMPARISON: MRI 07/16/2025 FINDINGS: 5 nonrib-bearing type lumbar vertebral bodies. S1 is partially lumbarized. Normal lumbar alignment. No acute compression. No high-grade central canal stenosis. Normal cauda equina nerve rootlets. Mild annular bulging L4-L5 and L5- S1. This is unchanged from previous. L1-L2: Normal. L2-L3: Mild facet arthropathy. Spinal canal and foramen are patent. L3-L4: Mild annular bulging. Tiny LEFT foraminal protrusion with mild LEFT foraminal narrowing. Mild facet arthropathy. L4-L5: Mild annular bulging with slight effacement of the ventral thecal sac and LEFT subarticular recess. Mild bilateral foraminal narrowing. L5-S1: Mild annular bulging with slight effacement of the ventral thecal sac. Spinal canal is patent. LEFT eccentric disc bulging with mild LEFT foraminal narrowing and slight contact of exiting LEFT L5 nerve root. Mild to moderate facet arthropathy. Partially visualized chronic sclerosis SI joints compatible with chronic sacroiliitis/degenerative change MR/MR lumbar spine wo con* [id number] IMPRESSION: 1. Normal lumbar alignment. No acute compression. 2. No high-grade central canal stenosis. 3. LEFT eccentric disc bulge L5-S1 slightly contacts the exiting LEFT L5 nerve root with mild LEFT foraminal narrowing. This is unchanged. 4. Mild bilateral L4-5 foraminal narrowing. 5. Mild to moderate facet arthropathy L5-S1. 6. No significant changes compared to previous 7. No significant changes since 07/16/2025
[2025-07-25] MEDS: heparin 5,000 unit/mL INJ 1 mL 5000 UNIT SUBCUT ×2 (10:39→17:22)
--- NOTE | 2025-07-25 10:41 | PC.PHAR ---
Patient wasn't sure last time taking medications since she had to stop medications for surgery. Patient did know she took he Ozempic on Mondays but stopped this last week for surgery.
--- NOTE | 2025-07-25 11:24 | CT_ITS ---
WS: [id number] CT ABDOMEN AND PELVIS WITH CONTRAST HISTORY: post-op salpingectomy, pain TECHNIQUE: Imaging performed of the abdomen and pelvis with IV contrast. Single phase imaging of the abdomen. Coronal and sagittal reformats are submitted. All CT scans at [facility] use at least one of these dose optimization techniques: automated exposure control; mA and/or kV adjustment per patient size (includes targeted exams where dose is matched to clinical indication); or iterative reconstruction. IV CONTRAST: Omnipaque 350; 100 mL IV. Oral contrast: No DLP: 1393.72 mGy.cm COMPARISON: 06/23/2025 Lower thorax: Very mild dependent changes and atelectasis at the lung bases. No pneumothorax. No pneumonia. Better aeration of both lungs at the lung bases. Heart is normal size. No hiatal hernia. Liver/biliary system: Hepatic steatosis. Mild hepatic enlargement. Normal portal vein. Gallbladder: Normally distended gallbladder with vicarious excretion of contrast. Pancreas: Normal size pancreas and pancreatic duct. No adjacent inflammation. Spleen: Normal size spleen. No mass or infarct. Adrenal glands: Normal. Right kidney: Normal. Left kidney: Normal kidney with cortical cyst. Aorta: Normal. Lymphadenopathy: None. Free fluid: None. GI tract: No GI tract obstruction. The appendix is normal and contains air. Abdominal wall: There is air extending through the umbilical region. Which is probably related to recent laparoscopic procedure. Air is noted dissecting through the abdominal wall musculature. There is also intraperitoneal air that was not present on the prior study. Pelvis: No free fluid in the pelvis. Pelvic structures are midline and normal. Bones: Unremarkable. CT/CT abdomen pelvis w con* [id number] IMPRESSION: 1. New intraperitoneal free air and subcutaneous emphysema since 06/23/2025. The re is air extending through the umbilicus. These changes may be due to recent l aparoscopic procedure. If there was no interval laparoscopic procedure since prior CT of 06/23/2025 possibility of visceral perforation should be considered . 2. No ascites or abscess. 3. Hepatic steatosis. 4. Minimal dependent changes at the lung bases. Improved aeration as compared to 06/23/2025. Notified Gila Heard MD at 07/25/2025 1:29 PM.
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
[2025-07-25] MEDS: iohexol 350 mg/mL 500 mL Btl (per mL) IV (12:48)
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
[2025-07-25] MEDS: pantoprazole 40 mg SDV IVP (12:54)
[2025-07-25 13:16] LABS: Base Excess VBG -0.2 mmol/L (-3.0-3.0); Blood Gas Operator Identificat GD; Blood Gas Sample Site Not specified; Blood Gas Sample Type Venous; HCO3 VBG 24.2 mmol/L (24-28); PCO2 VBG 37.9 mmHg (41-51); PO2 VBG 44.3 mmHg (25-40); Venous Blood Gas Hematocrit 40.0 % (37-47); pH VBG 7.41 (7.32-7.42)
[2025-07-25 13:40] LABS: Alanine Aminotransferase 16 U/L (0-33); Albumin Level 3.6 g/dL (3.5-5.2); Alkaline Phosphatase 59 U/L (35-105); Aspartate Amino Transferase 14 U/L (0-32); Blood Urea Nitrogen 6 mg/dL (6-20); Calcium 7.9 mg/dL (8.5-10.5); Carbon Dioxide 22 mmol/L (22-29); Chloride 102 mmol/L (98-107); Creatinine Clr Calc Pharmacy 185.9881; Globulin 3.1 g/dL (1.3-4.6); Glucose 247 mg/dL (65-115); Osmolality Calculated 290 mOsm/kg (285-295); Sodium 137 mmol/L (136-145); Total Protein 6.7 g/dL (6.6-8.7)
[2025-07-25 13:44] LABS: Lactic Sepsis W/Reflex 2.6 mmol/L (0.5-2.2)
[2025-07-25 13:47] LABS: Anion Gap 16.6 (5-19); Potassium 3.6 mmol/L (3.5-5.1)
--- NOTE | 2025-07-25 13:47 | PM.CONSULT ---
Providers/Reason For Consult Consulting Physician/Specialty*: Dr. Pimentel general surgery Reason for Consult*: Iatrogenic bowel perforation Attending Physician: Gial Heard MD Primary Care Provider: Franck Baltazar History of Present Illness History of Present Illness Nubia Leslie is a 34 year old female who underwent a laparoscopic bilateral salpingectomy, hysteroscopy, curettage of uterus on 07/24/[address] Melendrez. The patient then presented to the ER following her gynecological surgery for altered mental status and a stroke alert was called. Workup was unremarkable. Today repeat CT scan showed new intraperitoneal air. Discussed findings with Dr. Melendrez was concerned about an iatrogenic perforation of the viscus. Patient reports pain all over her abdomen and will not for adequate examination. Medications/Allergies Home Medications ?Medication ?Instructions ?Recorded ?Confirmed ?Last Taken ?Type empagliflozin 10 mg tablet 10 mg PO DAILY 06/03/25 07/25/25 06/25/25 History (Jardiance) semaglutide 0.25 mg or 0.5 mg (2 0.5 mg SUBCUT Q7D 06/16/25 07/25/25 07/14/25 History mg/3 mL) subcutaneous pen injector (Ozempic) albuterol sulfate 90 mcg/actuation 2 puff inhalation Q4H PRN 06/23/25 07/25/25 06/22/25 History aerosol inhaler shortness of breath or cough diclofenac sodium 75 mg 75 mg PO Q12H PRN pain #20 tabs 06/23/25 07/25/25 07/22/25 Rx tablet,delayed release glipizide 10 mg tablet 20 mg PO BID 06/23/25 07/25/25 06/25/25 History tizanidine 4 mg tablet 4 mg PO Q6H PRN muscle spasticity 06/23/25 07/25/25 07/22/25 Rx #20 tabs hydrocodone 5 mg-acetaminophen 325 1 tab PO Q6H PRN pain #14 tabs 06/25/25 07/25/25 2 Days Ago Rx mg tablet ~07/21/25 gabapentin 100 mg capsule 100 mg PO TID 07/23/25 07/25/25 3 Weeks Ago History ~07/03/25 Allergies Allergy/AdvReac Type Severity Reaction Status Date / Time No Known Allergies Allergy Verified 07/23/25 11:40 Current Medications Generic Name Dose Route Start Last Admin Trade Name Freq PRN Reason Stop Dose Admin Heparin Sodium (Porcine) 5,000 unit 07/25/25 09:00 07/25/25 10:39 Heparin 5,000 Unit/Ml Inj 1 Ml SUBCUT 5,000 unit Q8H TREY Administration Sodium Chloride 1,000 mls @ 125 mls/hr 07/24/25 17:45 07/25/25 10:38 Sodium Chloride 0.9% IV 125 mls/hr .Q8H TREY Administration Piperacillin Sod/Tazobactam 50 mls @ 12.5 mls/hr 07/24/25 18:00 07/25/25 10:38 Sod 3.375 gm/ Sodium Chloride IV 12.5 mls/hr Q8H TREY Administration Protocol Insulin Human Lispro 0 unit 07/25/25 12:00 07/25/25 12:54 Insulin Lispro 100 Unit/1 Ml SUBCUT 4 unit WM&BEDTIME TREY Administration Protocol Ketorolac Tromethamine 15 mg 07/25/25 12:05 07/25/25 12:54 Ketorolac 30 Mg/Ml Inj IVP 15 mg Q6H PRN Administration MODERATE PAIN Morphine Sulfate 2 mg 07/24/25 18:20 07/25/25 10:40 Morphine 4 Mg/Ml Sdv 1 Ml IVP 2 mg On Hold: 07/25/25 12:05 Q4H PRN Administration SEVERE PAIN Pantoprazole Sodium 40 mg 07/25/25 11:30 07/25/25 12:54 Pantoprazole 40 Mg Sdv IVP 40 mg DAILY TREY Administration PFSH Acute PFSH: Medical History (Updated 07/25/25 @ 15:22 by Alfredo Pimentel MD) Cough Seasonal allergies Type 2 diabetes mellitus Bronchitis No pertinent past medical history neghx:htn, thyroid, dvt/pe PCP: Dr. Demarco History of diabetes mellitus Abnormal uterine bleeding (AUB) Surgical History No pertinent past surgical history Family History Father Diabetes Hypertension Mother Diabetes Sister Diabetes Grandmother Breast cancer paternal Denies family history of Colon cancer Ovarian cancer Prostate cancer Heart disease Hyperlipidemia Bleeding disorder Uterine cancer Thyroid disease Stroke Social History Smoking and tobacco/nicotine status: unknown if used tobacco/nicotine Vitals/I&O/Wt Last Vital Signs Temp 97.8 F 07/25/25 11:16 Pulse 99 07/25/25 11:16 Resp 17 07/25/25 11:16 BP 118/76 07/25/25 11:16 Pulse Ox 94 07/25/25 11:16 O2 Del Method Room Air 07/25/25 11:16 O2 Flow Rate 2 07/24/25 20:00 07/24/25 07/25/25 07/25/25 22:59 06:59 14:59 Intake Total 300 / 300 1050 / 1350 950 / 950 Output Total 700 / 700 450 / 450 Balance 300 / 300 350 / 650 500 / 500 Weight last 48 hrs Weight 303 lb Weight 303 lb Physical Exam Narrative: Chest: Unlabored breathing room air. No lymphadenopathy. Heart: Regular rate and rhythm. Abdomen: Soft, diffusely tender. Unable to evaluate for rebound. Data 07/25/25 04:38 07/25/25 13:11 Micro: Microbiology 07/24/25 19:57 Blood Culture - Preliminary Blood SPECIMEN COLLECTED 07/24/25 19:57 Blood Culture - Preliminary Blood SPECIMEN COLLECTED 07/24/25 16:27 Blood Culture - Preliminary Blood SPECIMEN COLLECTED 07/24/25 16:24 Blood Culture - Preliminary Blood SPECIMEN COLLECTED A&P Assessment and plan 1. Perforation of viscus: Plan: 34-year-old female who underwent a gynecological surgery yesterday and returned with multiple problems. Repeat CT scan today showed intraperitoneal air. Discussed with Dr. Melendrez, her primary surgeon, who has a concern for iatrogenic perforation from yesterday's gynecological surgery. Given this I have discussed the risk and benefits and patient agreed to proceed with exploratory laparotomy, possible bowel resection, possible ostomy, possible ABThera, possible flexible sigmoidoscopy. Patient understands that she is at risk of subsequent intra-abdominal abscesses, possible hernia, possible anastomotic leak, possible leak from primary repair of bowel, patient understand that she might need a John's procedure if there is an injury to the rectum or descending colon. She also understands that a John's procedure would be technically difficult given her high BMI. PDMP PDMP Reviewed: Not Reviewed Coding Level of Care Code 30833 Diagnoses Perforation of viscus R19.8
--- NOTE | 2025-07-25 13:47 | PM.MISC ---
Miscellaneous Note Note: Full consult note to follow. Discussed with Dr. Melendrez. He is concerned about a iatrogenic perforation from yesterday's gynecological surgery. Will proceed with ex lap, possible bowel resection, possible ostomy.
[2025-07-25 14:34] LABS: Reflex Lactate Order REFLEX LACTIC ORDERD
--- NOTE | 2025-07-25 15:14 | PC.NURSE ---
Report called to IONA Kee in ICU. All questions answered. Patient currently in surgery. Patient care has been turned over to surgery and ICU staff at this time.
--- NOTE | 2025-07-25 16:11 | P.OP_ITS ---
Operative Report Date of procedure: July 25, 2025 Pre-op diagnosis: Iatrogenic viscus injury Post-op diagnosis: other Post-op diagnosis: Negative exploratory laparotomy. No bowel injury found. Small bowel large bowel and rectum all intact and healthy. Post-op findings: Ran small bowel 5 times and it was intact and healthy in its entirety from ligament of Treitz to cecum. Examined the cecum, ascending colon, transverse colon, descending colon, sigmoid, rectum and all appeared intact and healthy. Performing flexible sigmoidoscopy insufflated the colon with a air and filled the abdominal cavity with normal saline, and there was no bubbling indicating no perforation of the colon. Stomach was also inspected and was found intact. Procedure done: Exploratory laparotomy, flexible sigmoidoscopy. 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 Examined the cecum, ascending colon, transverse colon, descending colon, sigmoid, rectum and all appeared intact and healthy. Performing flexible sigmoidoscopy insufflated the colon with a air and filled the abdominal cavity with normal saline, and there was no bubbling indicating no perforation of the colon. Stomach was also inspected and was found intact. Condition: stable Disposition: ICU Brief History: 34-year-old female who had a laparoscopic gynecological surgery on 07/24/2025 and came back to the ER where a stroke alert was called. Workup was unremarkable. Patient had been complaining of abdominal pain and on today's CT scan there was small amount of peritoneal air. On discussion with Dr. Melendrez he was concerned that they may have been an iatrogenic injury to the bowel during her gynecological surgery. Therefore the decision was made to take the patient to the operating room for exploratory laparotomy, possible bowel resection, possible ostomy, possible ABThera, possible flexible sigmoidoscopy. Patient agreed to proceed. Procedure: Consent was obtained in the preop area. All questions were answered. SCDs were on and working. Patient was on schedule antibiotics. The abdomen was prepped and draped in the usual sterile fashion. A midline incision was carried out. Electrocautery was used to dissect down to the fascial layer. The abdomen was entered sharply using Metzenbaum scissors. Upon entry to the abdomen normal peritoneal fluid was obtained. There was no succus or stool. There was also no gush of air. The small bowel was eviscerated. I proceeded to run the bowel 5 times from ligament of Treitz to the cecum. The entirety of the small bowel was intact and healthy. I then inspected the cecum which was intact. The ascending colon was intact. Transverse colon was intact. Sigmoid colon and descending colon was intact. Rectum was intact. Dr. Melendrez scrubbed then and inspected the pelvis and his surgical site in the pelvis and was satisfied with the findings. I then filled the abdominal cavity with normal saline. Dr. Melendrez inspected the abdomen while I performed a flexible sigmoidoscopy. I managed to put in the scope up to the descending colon. I insufflated the colon and Dr. Melendrez did not see any bubbling in the normal saline that was placed in the abdomen, therefore ruling out a perforation to the rectum or the descending colon. I then washed out the abdomen with 2 L of normal saline. And proceeded to close the midline incision using #1 looped PDS. The patient was then transferred to the ICU without any complications
--- NOTE | 2025-07-25 16:26 | ANE.PACU2 ---
Inpatient post-anesthesia follow up: Airway intact: Yes Vital signs: Temperature 98.5 F Pulse Rate 61 Respiratory Rate 25 Blood Pressure 120/79 Pulse Oximetry 95 Oxygen Delivery Me thod [ Nasal Cannula Current Rate & Del josie] Oxygen Delivery Me thod Nasal Cannula Oxygen Flow Rate [ Current Rate 1 & Delivery] Oxygen Flow Rate 1 Fraction of Inspir ed Oxygen Hydration adequate: Yes Nausea and vomiting: No Pain level: 1 Mental status: Baseline
--- NOTE | 2025-07-25 17:41 | PC.NURSE ---
Addendum entered by Susan Verduzco RN 07/25/25 18:17: Witnessed Morphine 2mg waste. Original Note: This nurse was about to give 2 mg of morphine to the patient since the patient was screaming in pain. Patient then fell asleep before this nurse could give the morphine. Patient is having shallow breathing post anesthesia so morphine was not given. 2 mg of morphine wasted witnessed by IONA Davis.
--- NOTE | 2025-07-25 18:09 | PC.NURSE ---
Patient came from surgery lethargic on 3 L oxymask. Patient then started to scream stating that they could not pee then screaming about pain. Patient was not oriented to any questions. This nurse gave the patient a pillow to hold on their stomach to help with the pain. Patient was verbally de escalated and was able to go to rest without any pain medication. NIH stroke scale could not be performed on the patient because the patient was too disoriented.
[2025-07-25 23:29] LABS: Lactic Acid level (Lactate) 2.5 mmol/L (0.5-2.2)
[2025-07-26] VITALS (22 sets, daily range): BP systolic 103–141; BP diastolic 67–94; PULSE 56–84; RESP 15–32; TEMP 36.9; O2SAT 89–97
[2025-07-26] MEDS: heparin 5,000 unit/mL INJ 1 mL 5000 UNIT SUBCUT ×3 (01:27→16:45)
[2025-07-26] MEDS: morphine 4 mg/mL SDV 1 mL 2 MG IVP ×2 (01:56→20:09)
[2025-07-26] MEDS: piperacillin-tazobactam 3.375 GM in sodium chloride 0.9% (plus) 50 ML IV ×3 (03:10→17:55)
[2025-07-26 04:19] LABS: Hematocrit 35.3 % (36-47); Hemoglobin 11.30 g/dL (11.27-16.99); Mean Corpuscular HGB Conc 32.0 g/dL (30-55); Mean Corpuscular Hemoglobin 29.3 pg (27-33); Mean Corpuscular Volume 91.5 fl (85-98); Nucleated Red Blood Cells % 0 %; Platelet Count 305 10^3/cmm (157-399); Red Blood Count 3.86 10^6/uL (3.85-5.65); White Blood Count 11.25 10^3/uL (3.29-11.43)
[2025-07-26 04:34] LABS: Alanine Aminotransferase 20 U/L (0-33); Albumin Level 3.3 g/dL (3.5-5.2); Alkaline Phosphatase 55 U/L (35-105); Anion Gap 14.7 (5-19); Aspartate Amino Transferase 21 U/L (0-32); Blood Urea Nitrogen 7 mg/dL (6-20); Calcium 7.5 mg/dL (8.5-10.5); Carbon Dioxide 21 mmol/L (22-29); Chloride 103 mmol/L (98-107); Creatinine Clr Calc Pharmacy 159.4184; Globulin 3.1 g/dL (1.3-4.6); Glucose 285 mg/dL (65-115); Magnesium 1.8 mg/dL (1.7-2.3); Osmolality Calculated 288 mOsm/kg (285-295); Potassium 3.7 mmol/L (3.5-5.1); Sodium 135 mmol/L (136-145); Total Protein 6.4 g/dL (6.6-8.7)
--- NOTE | 2025-07-26 06:50 | PC.NURSE ---
During bedside report, pt cried. Moved IV lines, she cried and stated it hurt. Pt shallow breathing an holding her breath some. Pt encouraged to take deep even breaths and not to hold her breath as that would help lessen pain.
[2025-07-26] MEDS: pantoprazole 40 mg SDV IVP (08:21)
--- NOTE | 2025-07-26 11:05 | P.PN_ITS ---
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 Subjective: Interval history: Patient is POD #2 s/p laparoscopic bilateral salpingectomy, hysteroscopy, curettage of uterus on July 24, 2025 patient was admitted postoperatively for evaluation of decreased mental status, possible CVA patient is POD #1 exploratory laparotomy for severe abdominal pain, suspected bowel per- foration; negative findings at laparotomy today, c/o abdominal pain Vitals/I&O/Wt Last Vital Signs Temp 98.5 F 07/26/25 07:37 Pulse 60 07/26/25 14:00 Resp 22 H 07/26/25 14:00 BP 130/87 07/26/25 14:00 Pulse Ox 93 07/26/25 14:00 O2 Del Method Room Air 07/26/25 14:00 O2 Flow Rate 1 07/26/25 06:00 07/26/25 07/26/25 07/26/25 06:59 14:59 22:59 Intake Total 1000 / 4532.083 1800 / 1800 50 / 1850 Output Total 1000 / 1680 Balance 0 / 2852.083 1800 / 1800 50 / 1850 Weight last 48 hrs Weight 313 lb 0.902 oz Weight 303 lb Weight 303 lb Physical Exam 2 Narrative: General awake, alert, appropriate Lungs: clear Cor: RRR Abd: soft, nondistended Diffuse tenderness, no rebound Ext: normal Urinary Catheter Management: Srinivasan: Cath Placed During This Visit: yes Reason for Continuing Indwelling Catheter: Accurate Measurement of Urinary Output in Critically Ill Patients Urinary Catheter Date of Insertion: 07/25/25 Urinary Catheter Time of Insertion: 15:20 Data 07/26/25 03:29 07/26/25 03:29 Micro: Microbiology 07/24/25 16:09 Urine Culture - Final Urine,Clean Catch 07/24/25 19:57 Blood Culture - Preliminary Blood NEGATIVE TO DATE 07/24/25 19:57 Blood Culture - Preliminary Blood NEGATIVE TO DATE 07/24/25 16:27 Blood Culture - Preliminary Blood NEGATIVE TO DATE 07/24/25 16:24 Blood Culture - Preliminary Blood NEGATIVE TO DATE A&P Assessment and plan 1. Status post exploratory laparotomy: POD #2 s/p laparoscopic bilateral salpingectomy, hysteroscopy, curettage of uterus on July 24, 2025 POD #1 exploratory laparotomy for severe abdominal pain, suspected bowel per- foration; negative findings at laparotomy plan continue postop care PDMP PDMP Reviewed: Not Reviewed Attestations 2 Medical Necessity Statement*: patient s/p exploratory laparotomy, for postop care Coding Level of Care Code Acute Code for Chg Fwd Diagnoses Status post exploratory laparotomy Z98.890
--- NOTE | 2025-07-26 13:16 | P.PN_ITS ---
Subjective 2 Subjective: No acute events overnight Tolerating clear liquid Passing gas Abdomen benign Dressing in place Vitals/I&O/Wt Last Vital Signs Temp 98.5 F 07/26/25 07:37 Pulse 77 07/26/25 12:00 Resp 32 H 07/26/25 12:00 BP 128/82 07/26/25 12:00 Pulse Ox 94 07/26/25 12:00 O2 Del Method Room Air 07/26/25 12:00 O2 Flow Rate 1 07/26/25 06:00 07/25/25 07/26/25 07/26/25 22:59 06:59 14:59 Intake Total 1532.083 / 3532.083 1000 / 4532.083 1200 / 1200 Output Total 230 / 680 1000 / 1680 Balance 1302.083 / 2852.083 0 / 2852.083 1200 / 1200 Weight last 48 hrs Weight 313 lb 0.902 oz Weight 303 lb Weight 303 lb Physical Exam 2 Narrative: Chest: Unlabored breathing room air. No lymphadenopathy. Heart: Regular rate and rhythm. Abdomen: Soft, nontender, nondistended. Dressing in place Urinary Catheter Management: Srinivasan: Cath Placed During This Visit: yes Reason for Continuing Indwelling Catheter: Accurate Measurement of Urinary Output in Critically Ill Patients Urinary Catheter Date of Insertion: 07/25/25 Urinary Catheter Time of Insertion: 15:20 Data 07/26/25 03:29 07/26/25 03:29 Micro: Microbiology 07/24/25 16:09 Urine Culture - Final Urine,Clean Catch 07/24/25 19:57 Blood Culture - Preliminary Blood NEGATIVE TO DATE 07/24/25 19:57 Blood Culture - Preliminary Blood NEGATIVE TO DATE 07/24/25 16:27 Blood Culture - Preliminary Blood NEGATIVE TO DATE 07/24/25 16:24 Blood Culture - Preliminary Blood NEGATIVE TO DATE A&P Assessment and plan 1. Status post exploratory laparotomy: Plan: 34-year-old female who underwent an exploratory laparotomy. Healthy bowel throughout. No bowel perforation. Tolerating clear liquids. Passing gas. Advance to regular diet tomorrow. Rest of care per hospitalist PDMP PDMP Reviewed: Not Reviewed Attestations 2 Medical Necessity Statement*: N/A Coding Level of Care Code 46137 Diagnoses Status post exploratory laparotomy Z98.890
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
--- NOTE | 2025-07-26 19:14 | PC.NURSE ---
Shift summary: Pt tearful ad very anxious in am. This nurse spent an extensive amount of time explaining what to expect with her abdominal incision, pain control, breathing, getting out of bed and bowel movements. Pt reaches out to touch nurse or hold nurse's hand frequently. Pt assisted out fo bed with 3 assist ( PT included) this shift. She was very hesitant and slow to move. Walker and queuing utilized. She sat in the chair from 100ish to 1800. She tolerated that fairly well. Acetaminophen and Toradol uses to help control her pain. She fell asleep for over 2 hours this am after acetaminophen administration. She reports left should pain and passing gas. Hands are swollen, pt encouraged to exercise them to reduce swelling. Pt encouraged to move her shoulders and neck around to help with the shoulder pain, to displace the gas/air from surgery. Urine output pf 550 ml noted.
[2025-07-27] VITALS (27 sets, daily range): BP systolic 89–157; BP diastolic 64–111; PULSE 62–91; RESP 11–30; TEMP 36.7–36.8; O2SAT 89–97
[2025-07-27] MEDS: piperacillin-tazobactam 3.375 GM in sodium chloride 0.9% (plus) 50 ML IV ×3 (01:14→17:33)
[2025-07-27] MEDS: heparin 5,000 unit/mL INJ 1 mL 5000 UNIT SUBCUT ×2 (01:14→08:17)
[2025-07-27] MEDS: morphine 4 mg/mL SDV 1 mL 2 MG IVP (02:10)
[2025-07-27] MEDS: acetaminophen 1,000 MG/100 ML PIGGYBACK 400 MG IV ×3 (03:12→18:23)
[2025-07-27 04:30] LABS: Hematocrit 32.9 % (36-47); Hemoglobin 10.70 g/dL (11.27-16.99); Mean Corpuscular HGB Conc 32.5 g/dL (30-55); Mean Corpuscular Hemoglobin 29.6 pg (27-33); Mean Corpuscular Volume 91.1 fl (85-98); Nucleated Red Blood Cells % 0 %; Platelet Count 300 10^3/cmm (157-399); Red Blood Count 3.61 10^6/uL (3.85-5.65); White Blood Count 7.76 10^3/uL (3.29-11.43)
[2025-07-27 04:57] LABS: Alanine Aminotransferase 18 U/L (0-33); Albumin Level 3.4 g/dL (3.5-5.2); Alkaline Phosphatase 53 U/L (35-105); Anion Gap 14.2 (5-19); Aspartate Amino Transferase 13 U/L (0-32); Blood Urea Nitrogen 6 mg/dL (6-20); Calcium 7.8 mg/dL (8.5-10.5); Carbon Dioxide 21 mmol/L (22-29); Chloride 107 mmol/L (98-107); Creatinine Clr Calc Pharmacy 189.7940; Globulin 2.9 g/dL (1.3-4.6); Glucose 210 mg/dL (65-115); Magnesium 1.9 mg/dL (1.7-2.3); Osmolality Calculated 292 mOsm/kg (285-295); Potassium 3.2 mmol/L (3.5-5.1); Sodium 139 mmol/L (136-145); Total Protein 6.3 g/dL (6.6-8.7)
[2025-07-27] MEDS: pantoprazole 40 mg SDV IVP (08:18)
[2025-07-27] MEDS: oxyCODONE 5 mg IR Tab/Cap PO ×3 (08:25→21:04)
--- NOTE | 2025-07-27 10:26 | P.PN_ITS ---
Subjective 2 Subjective: Tolerating a diet No abdominal pain Vitals/I&O/Wt Last Vital Signs Temp 98.1 F 07/27/25 07:59 Pulse 67 07/27/25 08:00 Resp 30 H 07/27/25 08:25 BP 118/87 07/27/25 08:00 Pulse Ox 94 07/27/25 08:25 O2 Del Method Room Air 07/27/25 08:00 O2 Flow Rate 1 07/26/25 06:00 07/26/25 07/27/25 07/27/25 22:59 06:59 14:59 Intake Total 1989 / 3789 1200 / 4990 Output Total 525 / 525 550 / 1075 Balance 1465 / 3265 650 / 3915 Weight last 48 hrs Weight 315 lb 4.176 oz Weight 320 lb 7 oz Weight 313 lb 0.902 oz Physical Exam 2 Narrative: Chest: Unlabored breathing room air. No lymphadenopathy. Heart: Regular rate and rhythm. Abdomen: Soft, nontender, nondistended. Incision clean dry intact Urinary Catheter Management: Srinivasan: Cath Placed During This Visit: yes Reason for Continuing Indwelling Catheter: Accurate Measurement of Urinary Output in Critically Ill Patients Urinary Catheter Date of Insertion: 07/25/25 Urinary Catheter Time of Insertion: 15:20 Data 07/27/25 03:45 07/27/25 03:45 Micro: Microbiology 07/24/25 16:09 Urine Culture - Final Urine,Clean Catch A&P Assessment and plan 1. Status post exploratory laparotomy: Plan: 34-year-old female status post negative ex lap. Okay for regular diet. Rest of care per hospitalist. Follow-up in 2 weeks for staple removal in the office. PDMP PDMP Reviewed: Not Reviewed Attestations 2 Medical Necessity Statement*: N/A Coding Level of Care Code 45999 Diagnoses Status post exploratory laparotomy Z98.890
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
--- NOTE | 2025-07-27 19:07 | PC.NURSE ---
Shift summary: Pt has sat up in a chair for most of the shift. She does report abdominal soreness/pain. She said the IV Tylenol has helped. SHe has received her third and final dose this evening. She had 2 doses of Oxycodone IR this shift,in addition. She gets around slow, needs frequent verbal queuing and encouragement. She utilizes a walker, her right foot is more difficult for her to move. She has had a loose BM today. Srinivasan cath still in place, 600ml of urine output noted. Her significant other is attentive when visiting. SHe has a great appetite, she eats all of her meals. No Nasuea or vomiting report today. Pt has been in better control of her emotions this shift. Dressing removed off abd incision, 37 mekhi noted.
[2025-07-28] VITALS (21 sets, daily range): BP systolic 111–152; BP diastolic 71–104; PULSE 60–89; RESP 15–24; TEMP 36.6–36.9; O2SAT 91–98
[2025-07-28] MEDS: piperacillin-tazobactam 3.375 GM in sodium chloride 0.9% (plus) 50 ML IV ×3 (03:08→18:22)
[2025-07-28] MEDS: heparin 5,000 unit/mL INJ 1 mL 5000 UNIT SUBCUT ×2 (03:09→18:25)
[2025-07-28] MEDS: oxyCODONE 5 mg IR Tab/Cap PO ×3 (03:19→18:19)
[2025-07-28] MEDS: pantoprazole 40 mg SDV IVP (07:53)
--- NOTE | 2025-07-28 11:15 | P.PN_ITS ---
Subjective 2 Subjective: Tolerating a regular diet Having bowel movements Incision is clean dry intact Vitals/I&O/Wt Last Vital Signs Temp 98.4 F 07/28/25 08:00 Pulse 70 07/28/25 10:00 Resp 16 07/28/25 10:00 BP 144/97 07/28/25 10:00 Pulse Ox 93 07/28/25 10:00 O2 Del Method Room Air 07/28/25 10:00 O2 Flow Rate 1 07/26/25 06:00 07/27/25 07/28/25 07/28/25 22:59 06:59 14:59 Intake Total 2130 / 4310 290 / 4600 450 / 450 Output Total 600 / 600 1350 / 1950 Balance 1530 / 3710 -1060 / 2650 450 / 450 Weight last 48 hrs Weight 317 lb Weight 315 lb 4.176 oz Weight 320 lb 7 oz Physical Exam 2 Narrative: Chest: Unlabored breathing room air. No lymphadenopathy. Heart: Regular rate and rhythm. Abdomen: Soft, appropriately tender. Nondistended. Incision is clean dry intact. Urinary Catheter Management: Srinivasan: Cath Placed During This Visit: yes Reason for Continuing Indwelling Catheter: Accurate Measurement of Urinary Output in Critically Ill Patients Urinary Catheter Date of Insertion: 07/25/25 Urinary Catheter Time of Insertion: 15:20 Data 07/27/25 03:45 07/27/25 03:45 A&P Assessment and plan 1. Status post exploratory laparotomy: Plan: 34-year-old female status post negative ex lap. Tolerating a regular diet and having bowel movements. From a surgical perspective cleared for discharge. Follow-up in 2 weeks for staple removal. Rest of care per hospitalist. Discussed with hospitalist. PDMP PDMP Reviewed: Not Reviewed Attestations 2 Medical Necessity Statement*: N/A Coding Level of Care Code 05884 Diagnoses Status post exploratory laparotomy Z98.890
--- NOTE | 2025-07-28 13:00 | PC.NURSE ---
Srinivasan cath removed as ordered. 10 ml of fluid removed from balloon prior to removal. Removed intact. Pt was reluctant to have it removed at first, educated and encouraged her. She tolerated much better than expected.
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
[2025-07-28] MEDS: morphine 4 mg/mL SDV 1 mL 2 MG IVP (15:03)
--- NOTE | 2025-07-28 15:28 | PC.NURSE ---
patient financial services coordinator rounds at 0915- patient sitting up in the chair, stroke ruled out, but I'm still checking on her when I round.
--- NOTE | 2025-07-28 19:19 | PC.NURSE ---
Shift summary: Pt has sat up in chair for entire shift with PT and trips to use BSC. She was able to do more herself getting up with a walker but she is still very hesitant and wobbly. Abdominal incision well-approximated, 37 mekhi intact. Pt has good appetite. Pt restarted on her Glipizide and Gabapentin this evening. Received potassium replacement PO. She was started on Prozac today. IV fluids discontinued . She cried but was cooperative with PT and OT. She had a bowel movement today. Srinivasan cath removed. Pt has urinated since removal. She reports pain frequently. Acetaminophen, Oxy IR, Ketoral and morphie all admin today for pain, see MAR for further details.
[2025-07-29] VITALS (17 sets, daily range): BP systolic 113–152; BP diastolic 75–114; PULSE 67–90; RESP 14–20; TEMP 36.5–36.6; O2SAT 90–97
[2025-07-29 02:56] LABS: Hematocrit 37.4 % (36-47); Hemoglobin 11.10 g/dL (11.27-16.99); Mean Corpuscular HGB Conc 29.7 g/dL (30-55); Mean Corpuscular Hemoglobin 30.2 pg (27-33); Mean Corpuscular Volume 101.9 fl (85-98); Nucleated Red Blood Cells % 0 %; Platelet Count 274 10^3/cmm (157-399); Red Blood Count 3.67 10^6/uL (3.85-5.65); White Blood Count 6.78 10^3/uL (3.29-11.43)
[2025-07-29] MEDS: heparin 5,000 unit/mL INJ 1 mL 5000 UNIT SUBCUT ×3 (02:57→17:01)
[2025-07-29] MEDS: piperacillin-tazobactam 3.375 GM in sodium chloride 0.9% (plus) 50 ML IV ×2 (02:58→09:46)
[2025-07-29] MEDS: oxyCODONE 5 mg IR Tab/Cap PO ×3 (02:58→21:56)
[2025-07-29 03:16] LABS: Anion Gap 16.0 (5-19); Blood Urea Nitrogen 6 mg/dL (6-20); Calcium 8.5 mg/dL (8.5-10.5); Carbon Dioxide 21 mmol/L (22-29); Chloride 105 mmol/L (98-107); Creatinine Clr Calc Pharmacy 191.2865; Glucose 148 mg/dL (65-115); Osmolality Calculated 286 mOsm/kg (285-295); Potassium 4.0 mmol/L (3.5-5.1); Sodium 138 mmol/L (136-145)
--- NOTE | 2025-07-29 11:20 | PC.NURSE ---
Patient refused gabapentin. Dr castano.
--- NOTE | 2025-07-29 12:40 | P.PN_ITS ---
Subjective 2 Subjective: NAEON Vitals/I&O/Wt Last Vital Signs Temp 97.9 F 07/29/25 08:06 Pulse 87 07/29/25 12:00 Resp 20 H 07/29/25 08:06 BP 149/92 07/29/25 08:06 Pulse Ox 97 07/29/25 12:00 O2 Del Method Room Air 07/29/25 12:00 O2 Flow Rate 1 07/26/25 06:00 07/28/25 07/29/25 07/29/25 22:59 06:59 14:59 Intake Total 690 / 2740 220 / 2960 Output Total 725 / 1175 850 / 850 Balance -35 / 1565 220 / 1785 -850 / -850 Weight last 48 hrs Weight 320 lb Weight 317 lb Physical Exam 2 Narrative: rrr unlabored breathing ra abdomen soft, nt, nd incision c/d/i, mekhi in place Urinary Catheter Management: Srinivasan: Cath Placed During This Visit: yes, but has since been removed by the nurse Reason for Continuing Indwelling Catheter: Accurate Measurement of Urinary Output in Critically Ill Patients Urinary Catheter Date of Insertion: 07/25/25 Urinary Catheter Time of Insertion: 15:20 Date Urinary Catheter Removed: 07/28/25 Time Urinary Catheter Discontinued: 13:12 Data 07/29/25 02:32 07/29/25 02:32 A&P Assessment and plan 1. Status post exploratory laparotomy: Plan: 34yo female s/p negative ex lap. Cleared for discharge from surgical perspective. PDMP PDMP Reviewed: Not Reviewed Attestations 2 Medical Necessity Statement*: NA Coding Level of Care Code 54225 Diagnoses Status post exploratory laparotomy Z98.890
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
[2025-07-30] VITALS (16 sets, daily range): BP systolic 101–163; BP diastolic 70–110; PULSE 72–94; RESP 16–20; TEMP 36.6–36.8; O2SAT 93–97
[2025-07-30] MEDS: heparin 5,000 unit/mL INJ 1 mL 5000 UNIT SUBCUT ×3 (02:10→17:44)
[2025-07-30] MEDS: oxyCODONE 5 mg IR Tab/Cap PO (07:50)
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
--- NOTE | 2025-07-30 09:28 | PC.NURSE ---
patient refused gabapentin doctor notified
[2025-07-30] MEDS: oxyCODONE 5 mg IR Tab/Cap 7.5 MG PO (21:11)
[2025-07-31] VITALS (16 sets, daily range): BP systolic 96–151; BP diastolic 62–92; PULSE 80–90; RESP 18–22; TEMP 36.7–37.1; O2SAT 92–98
[2025-07-31] MEDS: heparin 5,000 unit/mL INJ 1 mL 5000 UNIT SUBCUT ×3 (00:17→17:32)
[2025-07-31] MEDS: polyethylene glycol 3350 Pkt 17 gm PO (08:30)
[2025-07-31] MEDS: ondansetron 2 mg/ML SDV 2 mL 4 MG IVP (08:40)
--- NOTE | 2025-07-31 10:41 | PC.NURSE ---
assisted up to bsc and chair for am dale , pt moving very cautiously and slow had to assist pt to get up on side of bed , stated that she had a headache this am and was somewhat nauseated, feel worse today am med refused at am dose , refused to eat breakfast , zofran given and assist up to recliner after brief time fell asleep in recliner awaken around 1030 and took po med and requested toast . dietary called toast given all monitor leads and monitoring lines off pt request
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
[2025-07-31] MEDS: oxyCODONE 5 mg IR Tab/Cap 7.5 MG PO (22:16)
[2025-08-01] VITALS (9 sets, daily range): BP systolic 104–135; BP diastolic 68–86; PULSE 74–90; RESP 16–18; TEMP 35.7–36.8; O2SAT 93–98
[2025-08-01] MEDS: heparin 5,000 unit/mL INJ 1 mL 5000 UNIT SUBCUT ×3 (01:04→16:49)
[2025-08-01] MEDS: oxyCODONE 5 mg IR Tab/Cap 7.5 MG PO ×2 (06:35→16:51)
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
[2025-08-01] MEDS: artificial tears Op Soln 15 mL Btl 1 DROP EYE-BOTH (16:52)
[2025-08-02] VITALS (7 sets, daily range): BP systolic 97–125; BP diastolic 54–84; PULSE 74–86; RESP 17–18; TEMP 36.7–37.1; O2SAT 95
[2025-08-02] MEDS: heparin 5,000 unit/mL INJ 1 mL 5000 UNIT SUBCUT (01:49)
[2025-08-02] MEDS: oxyCODONE 5 mg IR Tab/Cap 7.5 MG PO ×2 (08:30→13:27)
--- NOTE | 2025-08-02 15:46 | P.DS_ITS ---
Discharge Providers Date of Admission: 07/24/25 17:01 Date of Discharge: August 02, 2025 Attending Provider at Admission: Gila Heard MD Attending Provider at Discharge: Dawit Veliz MD Consults: Randall Pimentel General Surgery Satinder Shay [employer] Leisa Gonzalez neurology Paul Javed orthopedics Primary Care Provider: Franck Baltazar Diagnoses at Discharge Discharge Diagnosis 1. Type 2 diabetes mellitus: Details from hospital stay: Patient's blood sugars improved here on Amaryl 2 mg twice a day and 2000 - calorie ADA diet patient was counseled regarding daily weights, eating 1900 raghavendra daily and counting calories and avoiding calorie rich carbohydrate foods. She was very receptive to this and downloaded apps on her phone to count calories. She should hold her Ozempic for additional 1 week due to recent bowel surgery and if bowel function is back to normal she can resume shots in 1 week 2. Morbid obesity: Details from hospital stay: As above increase activity as tolerated 3. Generalized weakness: Details from hospital stay: Increase activity as tolerated patient has bedside commode. We tried to refer her to inpatient rehab but [employer] insurance would not cover it 4. Severe low back pain: Details from hospital stay: As above I did write for Percocet 7.5 mg 1 p.o. every 6 hours as needed #20 5. Lumbosacral disc disease: Details from hospital stay: Patient has lumbar spinal stenosis not requiring surgery 6. Depression with anxiety: Details from hospital stay: Improved with time, counseling and fluoxetine 20 mg daily patient was very antalgic tearful and fearful during the initial recovery period of her surgery and had slow recovery from her anesthesia 7. Status post exploratory laparotomy: Details from hospital stay: No perforation seen though bowel was run [address] Pimentel. See his surgical note 8. Abnormal uterine bleeding (AUB): Details from hospital stay: This and her desire for sterilization was treated with D&C and BTL. There was question of perforated viscus evaluated with exploratory laparotomy by Dr. Pimentel which did not find any perforation. Reason for Visit Reason for Visit: stroke Brief History: Nubia Leslie is a 34 year old female with past medical history of diabetes mellitus, menorrhagia desiring permanent sterilization was admitted today for elective laparoscopic salpingectomy. Surgery was uneventful. Postop patient had delayed recovery from anesthesia. She was arousable to painful stimuli and was feeling weak and could not feel her legs therefore stroke alert was called and Outpatient Surgery and patient was brought to the ER. She was unable to give much history to the ER doctor and she would only wake up to painful stimuli. Per surgical staff, surgery uneventful. Neurology was consulted in the ER. Patient was out of window for any treatment and had recent surgery tPA was indicated at the time. CTA head and neck showed no cervical carotid artery stenosis or thrombus no dissection. No intracranial occlusions or aneurysms. CT head shows no interval progression of edema no midline shift or mass effect. Small caliber left transverse sinus. CTA chest does not show central pulmonary emboli. Dense areas of consolidation greatest at lung bases most likely atelectasis component of aspiration pneumonia not excluded. Thoracic spine CT did not show any acute or remote fractures. WBC count 10.39, hemoglobin 13.7, creatinine 0.6. Hospital Course Hospital Course Patient post bilateral laparoscopic salpingectomy, hysteroscopy and D&C by Dr. Melendrez on 07/24/2025 present to the emergency department with altered mental status and stroke alert was called. Patient was evaluated by Dr. Gonzalez she did not have stroke but there was atelectasis in the lower lung hernandes worrisome for atelectasis or pneumonia and also new intraperitoneal air. She underwent exploratory laparotomy by Dr. Pimentel and small bowel was run and carefully examined 5 times and found to be healthy without perforation. Sigmoidoscopy also performed and bowel was insufflated and no bubbling to indicate perforation. Stomach was infused inspected and found to be intact. Patient subsequently had slow recovery from anesthesia but she returned her bowel function. Patient had significant back pain limiting her recovery Dr. Javed found no indication for need of surgery. Patient was unable to be discharged and was requiring full assist in the ICU. She was boarded in the ICU due to high level of care required but ultimately was medically stable. She was eating okay and transferred to the medical floor with slow progression with physical therapy. We attempted to obtain insurance approval for inpatient rehab but she did not receive approval despite peer to peer from me with medical claims examiner for [employer] insurance. Patient was counseled regarding techniques for weight loss and she was very receptive. She was companied by her Nato who has obtained a bedside commode and patient will discharge home. Unfortunately her insurance will not cover therapy. She was not approved nor accepted for detention facility either. Physical Exam Narrative: General well-developed morbidly obese female in no acute cardiopulmonary distress and is comfortable and cooperative at this time CV regular rate and rhythm Lungs clear to auscultation bilaterally Motor strength 5-/5 bilateral ankle flexion extension gross sensation intact in lower extremity Urinary Catheter Management: Srinivasan: Cath Placed During This Visit: yes, but has since been removed by the nurse Reason for Continuing Indwelling Catheter: Accurate Measurement of Urinary Output in Critically Ill Patients Urinary Catheter Date of Insertion: 07/25/25 Urinary Catheter Time of Insertion: 15:20 Date Urinary Catheter Removed: 07/28/25 Time Urinary Catheter Discontinued: 13:12 Discharge Data Studies Completed and Pending Completed Studies During Hospitalization Category Date Time Status CT abdomen pelvis w con* [id number] Stat Cat Scan 07/25/25 11:[address] head w con [id number] Stat Cat Scan 07/24/25 14:[address] lumbar spine wo con* [id number] Stat Cat Scan 07/24/25 15:[address] thoracic spin wo con* [id number] Stat Cat Scan 07/24/25 15:16 Completed CTA chest [CT angio chest PE protcl [id number]] Stat Cat Scan 07/24/25 15:07 Completed CTA head neck [CT angio headneck* [id number]] Stat Cat Scan 07/24/25 14:52 Completed MR lumbar spine wo con* [id number] Stat MRI 07/25/25 08:00 Completed Pending at discharge Category Date Time Status Sputum Culture and Gram Stain Stat Lab 07/24/25 17:37 Uncollected Radiology Impressions Head/Neck CTA 07/24/25 14:52 IMPRESSION: 1. No cervical carotid artery stenosis or thrombus. No dissection. 2. No intracranial occlusions or aneurysms. 3. Small caliber LEFT transverse sinus and sigmoid sinus, normal variant. No thrombus identified. 4. Unremarkable [place] of [place]. Head CT 07/24/25 14:53 IMPRESSION: 1. No interval progression of edema. No midline shift or mass effect. 2. Small caliber LEFT transverse sinus. Additional head and neck CTA will be performed. Transverse sinus will be further evaluated on the additional CT angiogram to ensure there is no dural sinus thrombosis. 3. No enhancing masses. Chest CTA 07/24/25 15:07 IMPRESSION: 1. No central pulmonary emboli. 2. Study is compromised by patient's body habitus. 3. Dense areas of consolidation greatest at the lung bases. Most likely atelectasis. Component of aspiration pneumonia is not excluded. 4. No pneumothorax. 5. Hepatic steatosis. Lumbar Spine CT 07/24/25 15:16 IMPRESSION: 1. Study is compromised by patient's body habitus. 2. No acute lumbar spine fracture. 3. Chronic bilateral sacroiliitis. 4. Minimal disc bulging at L5-S1 with mild contact upon the S1 nerve roots but no displacement. Thoracic Spine CT 07/24/25 15:16 IMPRESSION: 1. Scoliosis thoracic spine. No acute or remote thoracic spine fractures. 2. Dense areas of consolidation posteriorly in the lungs and greatest at the lung bases. Atelectasis versus developing pneumonia. As there has been recent intubation aspiration pneumonia should be considered as a possible etiology. Lumbar Spine MRI 07/25/25 08:00 IMPRESSION: 1. Normal lumbar alignment. No acute compression. 2. No high-grade central canal stenosis. 3. LEFT eccentric disc bulge L5-S1 slightly contacts the exiting LEFT L5 nerve root with mild LEFT foraminal narrowing. This is unchanged. 4. Mild bilateral L4-5 foraminal narrowing. 5. Mild to moderate facet arthropathy L5-S1. 6. No significant changes compared to previous 7. No significant changes since 07/16/2025 Abdomen/Pelvis CT 07/25/25 11:24 IMPRESSION: 1. New intraperitoneal free air and subcutaneous emphysema since 06/23/2025. There is air extending through the umbilicus. These changes may be due to recent laparoscopic procedure. If there was no interval laparoscopic procedure since the prior CT of 06/23/2025 possibility of visceral perforation should be considered. 2. No ascites or abscess. 3. Hepatic steatosis. 4. Minimal dependent changes at the lung bases. Improved aeration as compared to 06/23/2025. Notified Gila MD [place] at 07/25/2025 1:29 PM. Laboratory Results WBC 6.78 10^3/uL (3.29-11.43) 07/29/25 02:32 RBC 3.67 10^6/uL (3.85-5.65) L 07/29/25 02:32 Hgb 11.10 g/dL (11.27-16.99) L 07/29/25 02:32 Hct 37.4 % (36-47) 07/29/25 02:32 MCV 101.9 fl (85-98) H 07/29/25 02:32 MCH 30.2 pg (27-33) 07/29/25 02:32 MCHC 29.7 g/dL (30-55) L 07/29/25 02:32 RDW 13.6 % (12.1-15.1) 07/29/25 02:32 Plt Count 274 10^3/cmm (157-399) 07/29/25 02:32 MPV 10.0 fL (7.4-10.4) 07/29/25 02:32 Neut % (Auto) 47.1 % 07/29/25 02:32 Lymph % (Auto) 34.4 % 07/29/25 02:32 Miner % (Auto) 5.6 % 07/29/25 02:32 Eos % (Auto) 12.2 % 07/29/25 02:32 Baso % (Auto) 0.6 % 07/29/25 02:32 Neut # (Auto) 3.19 10^3/uL (1.8-7.7) 07/29/25 02:32 Lymph # (Auto) 2.3 10^3/uL (0.8-4.8) 07/29/25 02:32 Miner # (Auto) 0.4 10^3/uL (0.2-0.9) 07/29/25 02:32 Eos # (Auto) 0.8 10^3/uL (0.0-0.8) 07/29/25 02:32 Baso # (Auto) 0.0 10^3/uL (0.0-0.1) 07/29/25 02:32 Nucleated RBC % (auto) 0 % 07/29/25 02:32 Nucleated RBCs # 0.0 /100WBC 07/29/25 02:32 PT 12.90 SECONDS (12.1-14.9) 07/24/25 15:01 INR 0.91 (0.8-1.2) 07/24/25 15:01 APTT 25.1 SECONDS (23.9-36.7) 07/24/25 15:01 Specimen Type Venous 07/25/25 13:00 Sample Site Not specified 07/25/25 13:00 Shiraz Test N/a 07/25/25 13:00 VBG pH 7.41 (7.32-7.42) 07/25/25 13:00 VBG pCO2 37.9 mmHg (41-51) L 07/25/25 13:00 VBG pO2 44.3 mmHg (25-40) H 07/25/25 13:00 VBG HCO3 24.2 mmol/L (24-28) 07/25/25 13:00 VBG Base Excess -0.2 mmol/L (-3.0-3.0) 07/25/25 13:00 VBG Hematocrit 40.0 % (37-47) 07/25/25 13:00 O2 Delivery Device Room air 07/25/25 13:00 FiO2 21.0 % 07/25/25 13:00 Resident Care Supervisor ID Gd 07/25/25 13:00 Sodium 138 mmol/L (136-145) 07/29/25 02:32 Potassium 4.0 mmol/L (3.5-5.1) 07/29/25 02:32 Chloride 105 mmol/L (98-107) 07/29/25 02:32 Carbon Dioxide 21 mmol/L (22-29) L 07/29/25 02:32 Anion Gap 16.0 (5-19) 07/29/25 02:32 BUN 6 mg/dL (6-20) 07/29/25 02:32 Creatinine 0.6 mg/dL (0.5-0.9) 07/29/25 02:32 GFR Calculation 114.4 mL/min (90-130) 07/29/25 02:32 Glucose 148 mg/dL (65-115) H 07/29/25 02:32 POC Glucose 152 mg/dL (70-110) H 08/02/25 10:56 Estimat Average Glucose 220 07/24/25 15:01 Hemoglobin A1c 9.3 % (4.0-6.0) H 07/24/25 15:01 Calculated Osmolality 286 mOsm/kg (285-295) 07/29/25 02:32 Lactic Acid 2.6 mmol/L (0.5-2.2) H 07/25/25 13:11 Lactic Acid (Sepsis) 2.5 mmol/L (0.5-2.2) H 07/25/25 22:44 Calcium 8.5 mg/dL (8.5-10.5) 07/29/25 02:32 Magnesium 1.9 mg/dL (1.7-2.3) 07/27/25 03:45 Total Bilirubin 0.3 mg/dL (0.15-1.2) 07/27/25 03:45 AST 13 U/L (0-32) 07/27/25 03:45 ALT 18 U/L (0-33) 07/27/25 03:45 Alkaline Phosphatase 53 U/L (35-105) 07/27/25 03:45 Total Protein 6.3 g/dL (6.6-8.7) L 07/27/25 03:45 Albumin 3.4 g/dL (3.5-5.2) L 07/27/25 03:45 Globulin 2.9 g/dL (1.3-4.6) 07/27/25 03:45 Procalcitonin 0.04 ng/mL (0-0.5) 07/24/25 15:01 TSH 1.53 uIU/mL (0.27-4.20) 07/24/25 15:01 HCG, Qual Negative (Negative) 07/24/25 15:01 Urine Color Yellow (Yellow) 07/24/25 16:09 Urine Appearance Clear (CLEAR) 07/24/25 16:09 Urine pH 5.5 (5-7) 07/24/25 16:09 Ur Specific [place] 1.042 (1.005-1.030) H 07/24/25 16:09 Urine Protein Trace (Negative) A 07/24/25 16:09 Urine Glucose (UA) 2+ (Normal) H 07/24/25 16:09 Urine Ketones 1+ (Negative) H 07/24/25 16:09 Urine Blood 3+ (Negative) A 07/24/25 16:09 Urine Nitrate Negative (Negative) 07/24/25 16:09 Urine Bilirubin Negative (Negative) 07/24/25 16:09 Urine Urobilinogen 0.2 mg/dL (Negative) 07/24/25 16:09 Ur Leukocyte Esterase Negative (Negative) 07/24/25 16:09 Urine RBC >100 /hpf (0-2) H 07/24/25 16:09 Urine WBC 0-5 /hpf (0-5) 07/24/25 16:09 Ur Squamous Epith Cells 0-5 /hpf (0-5) 07/24/25 16:09 Amorphous Sediment Not Reportable 07/24/25 16:09 Urine Bacteria None seen /hpf (NONE) 07/24/25 16:09 Hyaline Casts 2.05 /lpf 07/24/25 16:09 Urine Opiates Screen Positive ng/mL (Negative) H 07/24/25 16:09 Ur Barbiturates Screen Negative ng/mL (Negative) 07/24/25 16:09 Ur Phencyclidine Scrn Negative ng/mL (Negative) 07/24/25 16:09 Ur Amphetamines Screen Negative ng/mL (Negative) 07/24/25 16:09 U Benzodiazepines Scrn Negative ng/mL (Negative) 07/24/25 16:09 Urine Cocaine Screen Negative ng/mL (Negative) 07/24/25 16:09 U Marijuana (THC) Screen Negative ng/mL (Negative) 07/24/25 16:09 Vitals Last Vital Signs Temp 98.0 F 08/02/25 11:49 Pulse 76 08/02/25 11:49 Resp 18 08/02/25 13:27 BP 117/74 08/02/25 11:49 Pulse Ox 95 08/02/25 11:49 O2 Del Method Room Air 08/02/25 11:49 O2 Flow Rate 1 07/26/25 06:00 Discharge Plan Discharge Patient Disposition: Home Condition: Stable Prescriptions: New pregabalin 75 mg capsule 75 mg PO BID Qty: 60 0RF oxycodone-acetaminophen [Percocet] 7.5-325 mg tablet 1 tab PO Q6H PRN (Reason: pain) Qty: 20 0RF fluoxetine 20 mg Capsule 20 mg PO DAILY Qty: 30 0RF losartan 50 mg Tablet 50 mg PO DAILY Qty: 30 0RF docusate sodium 100 mg Capsule 100 mg PO BID Qty: 60 0RF polyethylene glycol 3350 17 gram Powder In Packet 17 g PO DAILY Qty: 30 0RF oxycodone 5 mg Tablet 7.5 mg PO Q4H PRN (Reason: Moderate Pain) Qty: 20 0RF Tears Lubricant Eye Drop 0.5 % Drops 1 drp eye-both Q4H PRN (Reason: Dry Eye(S)) Qty: 15 0RF cetirizine 10 mg Tablet 10 mg PO DAILY Qty: 100 0RF acetaminophen 325 mg Tablet 650 mg PO Q6H PRN (Reason: Mild/Mod Pain Or Temp >/= 101) Qty: 100 0RF Continued Jardiance 10 mg tablet 10 mg PO DAILY Ozempic 0.25 mg or 0.5 mg (2 mg/3 mL) pen injector 0.5 mg SUBCUT Q7D Rx Instructions: Monday tizanidine 4 mg tablet 4 mg PO Q6H PRN (Reason: muscle spasticity) Qty: 20 0RF Rx Instructions: do not exceed 3 doses per 24 hrs diclofenac sodium 75 mg tablet,delayed release (DR/EC) 75 mg PO Q12H PRN (Reason: pain) Qty: 20 0RF glipizide 10 mg tablet 20 mg PO BID albuterol sulfate 90 mcg/actuation HFA aerosol inhaler 2 puff INHALATION Q4H PRN (Reason: shortness of breath or cough) Discontinued gabapentin 100 mg capsule 100 mg PO TID hydrocodone-acetaminophen 5-325 mg tablet 1 tab PO Q6H PRN (Reason: pain) Qty: 14 0RF Discharge Order = DC NOW: Discharge Order (Routine); Ordered 08/02/25 Ordered By: Dawit Veliz Other Ambulatory Orders: DME: Alex (Order) Location: None Selected Ordered By: Dawit Veliz Referrals: Kirk of [facility] [Outside] Franck Baltazar [Primary Care Provider, Family Practice] - 1 week Referral Note: Please call your provider Monday to make a hospital discharge follow up in 1 week. Discharge Diet: Diabetic Discharge Activity: Increase activity as tolerated Patient Instructions: Fluoxetine (By mouth) (Fluoxetine HCl, Gaboxetine, Prozac, Prozac Weekly), Losartan (By mouth) (Cozaar, Arbli), Hypertension, Depression (DC), Aspiration Pneumonia (DC), Acute Wound Care (DC), Weakness (DC), Anxiety (DC), Exploratory Laparotomy (DC), GI Post Discharge Instructions w/ Anesthesia, Opioid Safety, Post Anesthesia Care, Patient Portal & Steffen Instructions Activity Restrictions/Additional Instructions: Weight yourself daily unclothed each morning after the bathroom Limit your calories to 1900 daily with goal to lose 2 pounds a week If you are losing more than 3 pounds a week increase your calories by 100 daily and if you are losing less than 2 pounds a week decrease your calories by 100 daily until you are at your goal Skip your Ozempic for 1 week then if bowel function is doing well resume Ozempic to decrease your appetite slowing gastric output Increase activity as tolerated Return to hospital if worsening of your back pain or loss of bowel or bladder function. Return if you have unilateral limb weakness suggestive of nerve compromise Return for vaginal bleeding or acute worsening of abdominal pain Discharge Attestations Time Spent in Discharge Care*: greater than 30 min Quality Metrics Clinical Quality Measures [ No reported AMI, CVA or VTE this stay] Coding Level of Care Code 05182 Diagnoses Type 2 diabetes mellitus E11.9 Diabetes mellitus buckle stringer insulin use: without senior living use Proliferative retinopathy type: unspecified Diabetes mellitus macular edema: macular edema presence unspecified Laterality: unspecified laterality Morbid obesity E66.01 Generalized weakness R53.1 Severe low back pain M54.50 Lumbosacral disc disease M51.9 Depression with anxiety F41.8 Status post exploratory laparotomy Z98.890 Abnormal uterine bleeding (AUB) N93.9 Time Spent (min) 40
== END 2025-08-02 16:54 | disposition home or self-care (01) | DRG 167 ==
LOC: ER 16:48 → ER IP 17:01 → MEDSURG 17:07 → ICU 07-25 16:32 → MEDSURG 07-31 23:48
PROVIDERS: Student in an Organized Health Care Education/Training Program; Admitting Provider Internal Medicine; Emergency Provider Emergency Medicine; PCP Family Medicine; Visit Provider Internal Medicine
PROC: 0DJU0ZZ Inspection of Omentum, Open Approach (ICD-10-PCS; CPT 49000; principal; 2025-07-25 15:00)
PROC: 0DJD8ZZ Inspection of Lower Intestinal Tract, Via Natural or Artificial Opening Endoscopic (ICD-10-PCS; CPT 45330; 2025-07-25 15:00)
DX: J69.0 Pneumonitis due to inhalation of food and vomit (principal); E87.20 Acidosis, unspecified; Z68.43 Body mass index [BMI] 50.0-59.9, adult; J95.89 Other postprocedural complications and disorders of respiratory system, not elsewhere classified; J98.11 Atelectasis; T88.59XA Other complications of anesthesia, initial encounter; T41.205A Adverse effect of unspecified general anesthetics, initial encounter; R20.0 Anesthesia of skin; E11.9 Type 2 diabetes mellitus without complications; E66.01 Morbid (severe) obesity due to excess calories; M51.27 Other intervertebral disc displacement, lumbosacral region; F41.8 Other specified anxiety disorders; N93.9 Abnormal uterine and vaginal bleeding, unspecified; R53.1 Weakness; F43.10 Post-traumatic stress disorder, unspecified; R10.9 Unspecified abdominal pain; Z79.84 Long term (current) use of oral hypoglycemic drugs; Z79.85 Long-term (current) use of injectable non-insulin antidiabetic drugs; Z75.1 Person awaiting admission to adequate facility elsewhere
CPT/HCPCS: 36415; 36416; 51702; 70460; 70496; 70498; 71275; 72128; 72131; 72148; 74177; 80048; 80053; 80306; 81001; 82803; 82962; 83036; 83605; 83735; 84145; 84443; 84703; 85025; 85610; 85730; 87040; 87086; 93005; 94664; 96365; 96372; 96375; 97110; 97116; 97162; 97167; 97530; 97535; 99285; J0131; J0456; J0696; J1644; J1815; J1885; J2270; J2405; J2470; J2543; J7030; J7050; J9999

== ENCOUNTER 2025-08-08 18:15 | Emergency (ER) | payer BC, MEDICAID, SELFPAY ==
--- OUTSIDE RECORDS SUMMARY | 2025-08-08 18:19 | XMS_ITS | Encounter Summary ---
Author Organization [facility] Address [address] [place] [address] Care Team Providers Care Dietetic Aide Name Role Phone Unavailable Primary Care Provider Unavailabl e Encounter Details Date Type Department Care Team (Latest Contact Info) Description 04/22/2003 Outpatient Historical [facility] [address] [phone] Jose Caicedo MD [address] [place] [phone] ACUTE FRONTAL SINUSITIS (Primary Dx); ATTN DEFICIT NONHYPERACT; ALLERGY, UNSPECIFIED Social History Tobacco Use Types Packs/Day Years Used Date Smoking Tobacco: Never Assessed Comments Unknown Sex and Gender Information Value Date Recorded Sex Assigned at Not on file 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
--- OUTSIDE RECORDS SUMMARY | 2025-08-08 18:19 | XMS_ITS | Encounter Summary ---
Author Organization [facility] Address 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 department she is faxing over the d/c summary. Appointment has been made Laura documented in this encounter Plan of Treatment Upcoming Encounters Date Type Department Care Team (Late st Contact Info) Description 08/13/2025 1:40 PM CDT Video Visit [facility] Medicine [place] [address] [place] [address] Viktoria Ding FNP [address] [phone] documented as of this encounter Visit Diagnoses Not on filedocumented in this encounter Care Teams Agile Test Lead Relationship Specialty Start Date End Date Franck Baltazar MD [address] [address] PCP - General Family Practice 10/13/21 documented as of this encounter
--- OUTSIDE RECORDS SUMMARY | 2025-08-08 18:19 | XMS_ITS | Encounter Summary ---
Author Organization [facility] Address [address] [place] [address] Care Team Providers Care Carriage Dogger Name Role Phone Franck Baltazar MD Primary Care Provider [phone] Reason for Visit * Auth/Cert (Routine) Specialty Diagnoses / Procedures Referred By Contac t Referred To Contact Rehabilitation Marielena Carbajal MD [address] [address] Phone: tel: fax: [facility] [address] [place] [address] Phone: tel: fax: Referral ID Status Reason Start Date Expiration Date Visits Re quested Visits Authorized [id number] 1 1 Encounter Details Date Type Department Care Team (Late st Contact Info) Description 07/31/2025 Hospital Encounter [facility] [address] [place] [phone] Marielena Carbajal MD [address] [address] Social History Tobacco Use Types Packs/Day Years [...] on file 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 Gender Identity Not on file Sexual Orientation Not on file documented as of this encounter Plan of Treatment Upcoming Encounters Date Type Department Care Team (Late st Contact Info) Description 08/13/2025 1:40 PM CDT Video Visit [facility] Medicine [place] [address] [place] [address] Viktoria Ding FNP [address] [address] documented as of this encounter Visit Diagnoses Not on filedocumented in this encounter Care Teams Carriage Dogger Relationship Specialty Start Date End Date Franck Baltazar MD [address] [address] PCP - General Family Practice 10/13/21 documented as of this encounter
--- OUTSIDE RECORDS SUMMARY | 2025-08-08 18:19 | XMS_ITS | Clinical Summary ---
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
--- OUTSIDE RECORDS SUMMARY | 2025-08-08 18:19 | XMS_ITS | Encounter Summary ---
Author Organization [facility] Address [address] [place] [address] Care Team Providers Care Director Digital Marketing Name Role Phone Unavailable Primary Care Provider Unavailabl e Encounter Details Date Type Department Care Team (Latest Contact Info) Description 08/30/2001 Outpatient Historical [address] [phone] Viviana Delgadillo MD [address], [address] Attention deficit disorder with hyperactivity(314.01 ) (Primary Dx) Social History Tobacco Use Types Packs/Day Years Used Date Smoking Tobacco: Never Assessed Comments Unknown Sex and Gender Information Value Date Recorded Sex Assigned at Not on file 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
--- OUTSIDE RECORDS SUMMARY | 2025-08-08 18:19 | XMS_ITS | Encounter Summary ---
Author Organization [facility] Address [address] [place] [address] Care Team Providers Care Geometrician Name Role Phone Unavailable Primary Care Provider Unavailabl e Encounter Details Date Type Department Care Team (Latest Contact Info) Description 06/19/2002 Outpatient Historical [address] [phone] Viviana Delgadillo MD [address], [address] ATTN DEFICIT W HYPERACT (Primary Dx); VACCINE FOR DISEASE NEC Social History Tobacco Use Types Packs/Day Years Used Date Smoking Tobacco: Never Assessed Comments Unknown Sex and Gender Information Value Date Recorded Sex Assigned at Not on file 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
--- OUTSIDE RECORDS SUMMARY | 2025-08-08 18:19 | XMS_ITS | Encounter Summary ---
Author Organization [facility] Address [address] [place] [address] Care Team Providers Care Dye Expert Name Role Phone Unavailable Primary Care Provider Unavailabl e Encounter Details Date Type Department Care Team (Latest Contact Info) Description 01/01/2003 Outpatient Historical [facility] [address] [place] [phone] Jose Caicedo MD [address] [place] [phone] ATTN DEFICIT W HYPERACT (Primary Dx) Social History Tobacco Use Types Packs/Day Years Used Date Smoking Tobacco: Never Assessed Comments Unknown Sex and Gender Information Value Date Recorded Sex Assigned at Not on file 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
--- OUTSIDE RECORDS SUMMARY | 2025-08-08 18:19 | XMS_ITS | Encounter Summary ---
Author Organization [facility] Address [address] [place] [address] Care Team Providers Care Cook Chili Name Role Phone Unavailable Primary Care Provider Unavailabl e Encounter Details Date Type Department Care Team (Latest Contact Info) Description 12/17/2002 Outpatient Historical [facility] [address] [phone] Joan Ortiz MD [address] [place] [address] VACCINE FOR DISEASE NEC (Primary Dx) Social History Tobacco Use Types Packs/Day Years Used Date Smoking Tobacco: Never Assessed Comments Unknown Sex and Gender Information Value Date Recorded Sex Assigned at Not on file 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
--- OUTSIDE RECORDS SUMMARY | 2025-08-08 18:19 | XMS_ITS | Encounter Summary ---
Author Organization [facility] Address [address] [place] [address] Care Team Providers Care Apigee Developer Name Role Phone Unavailable Primary Care Provider Unavailabl e Encounter Details Date Type Department Care Team (Latest Contact Info) Description 09/26/2002 Outpatient Historical [address] [phone] Viviana Delgadillo MD [address] [place] [address], [address] ACUTE URI NOS (Primary Dx); ALLERGIC RHINITIS NOS; DERMATITIS NOS Social History Tobacco Use Types Packs/Day Years Used Date Smoking Tobacco: Never Assessed Comments Unknown Sex and Gender Information Value Date Recorded Sex Assigned at Not on file 

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
--- OUTSIDE RECORDS SUMMARY | 2025-08-08 18:19 | XMS_ITS | Encounter Summary ---
Author Organization [facility] Address [address] [place] [address] Care Team Providers Care Research Psychologist Name Role Phone Franck Baltazar MD Primary Care Provider [phone] Encounter Details Date Type Department Care Team (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 Contact Info) Description 08/13/2025 1:40 PM CDT Video Visit [facility] [address] [address] Viktoria Ding FNP [address] [address] documented as of this encounter Visit Diagnoses Not on filedocumented in this encounter Care Teams Research Psychologist Relationship Specialty Start Date End Date Franck Baltazar MD [address] [address] PCP - General Family Practice 10/13/21 documented as of this encounter
--- OUTSIDE RECORDS SUMMARY | 2025-08-08 18:19 | XMS_ITS | Encounter Summary ---
Author Organization [facility] Address [address] [place] [address] Care Team Providers Care Messaging Architect Name Role Phone Unavailable Primary Care Provider Unavailabl e Encounter Details Date Type Department Care Team (Latest Contact Info) Description 11/30/2001 Outpatient Historical [facility] [address] [phone] Joan Ortiz MD [address] [place] [address] NASAL & SINUS DIS NEC (Primary Dx); NONINFEC GASTROENTERIT NEC Social History Tobacco Use Types Packs/Day Years Used Date Smoking Tobacco: Never Assessed Comments Unknown Sex and Gender Information Value Date Recorded Sex Assigned at Not on file 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
--- OUTSIDE RECORDS SUMMARY | 2025-08-08 18:19 | XMS_ITS | Encounter Summary ---
Author Organization [facility] Address [address] [place] [address] Care Team Providers Care Hog Operator Name Role Phone Unavailable Primary Care Provider Unavailabl e Encounter Details Date Type Department Care Team (Latest Contact Info) Description 12/18/[address] 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
--- OUTSIDE RECORDS SUMMARY | 2025-08-08 18:19 | XMS_ITS | Encounter Summary ---
Author Organization [facility] Address [address] [place] [address] Care Team Providers Care Winding Inspector And Tester Name Role Phone Unavailable Primary Care Provider Unavailabl e Encounter Details Date Type Department Care Team (Latest Contact Info) Description 10/31/2001 Outpatient Historical [address] [phone] Viviana Delgadillo MD [address], [address] ATTN DEFICIT W HYPERACT (Primary Dx); ACUTE PHARYNGITIS Social History Tobacco Use Types Packs/Day Years Used Date Smoking Tobacco: Never Assessed Comments Unknown Sex and Gender Information Value Date Recorded Sex Assigned at Not on file 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
--- OUTSIDE RECORDS SUMMARY | 2025-08-08 18:19 | XMS_ITS | Encounter Summary ---
Author Organization [facility] Address [address] [place] [address] Care Team Providers Care Assistant Winemaker Name Role Phone Unavailable Primary Care Provider Unavailabl e Encounter Details Date Type Department Care Team (Latest Contact Info) Description 06/18/2001 Outpatient Historical [facility] Medicine [place] [address] [address] Jose Caicedo MD [address] [place] [address] Other, multiple, and unspecified sites, insect bite, nonvenomous, infected(919.5) (Primary Dx) Social History Tobacco Use Types Packs/Day Years Used Date Smoking Tobacco: Never Assessed Comments Unknown Sex and Gender Information Value Date Recorded Sex Assigned at Not on file 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
--- OUTSIDE RECORDS SUMMARY | 2025-08-08 18:19 | XMS_ITS | Encounter Summary ---
Author Organization [facility] Address [address] [place] [address] Care Team Providers Care Scale Manager Name Role Phone Unavailable Primary Care Provider Unavailabl e Encounter Details Date Type Department Care Team (Latest Contact Info) Description 01/05/2001 Outpatient Historical [address] [phone] Viviana Delgadillo MD [address], [phone] Attention deficit disorder with hyperactivity(314.01 ) (Primary Dx); Benign neoplasm of skin, site unspecified Social History Tobacco Use Types Packs/Day Years Used Date Smoking Tobacco: Never Assessed Comments Unknown Sex and Gender Information Value Date Recorded Sex Assigned at Not on file 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
--- OUTSIDE RECORDS SUMMARY | 2025-08-08 18:19 | XMS_ITS | Encounter Summary ---
Author Organization [facility] Address [address] [place] [address] Care Team Providers Care Glass Frame Fitter Name Role Phone Unavailable Primary Care Provider Unavailabl e Encounter Details Date Type Department Care Team (Latest Contact Info) Description 07/24/2002 Outpatient Historical [address] [phone] Viviana Delgadillo MD [address], [address] TRACHEA/BRONCHUS DIS NEC (Primary Dx); ACUTE FRONTAL SINUSITIS; VACCINE FOR DISEASE NEC Social History Tobacco Use Types Packs/Day Years Used Date Smoking Tobacco: Never Assessed Comments Unknown Sex and Gender Information Value Date Recorded Sex Assigned at Not on file 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
--- OUTSIDE RECORDS SUMMARY | 2025-08-08 18:20 | XMS_ITS | Encounter Summary ---
Author Organization [facility] Address [address] [place] [address] Care Team Providers Care Solutions Operator Name Role Phone Unavailable Primary Care Provider Unavailabl e Encounter Details Date Type Department Care Team (Latest Contact Info) Description 01/05/2005 Outpatient Historical [facility] Medicine [place] [address] [phone] Jess Perez, [facility] [facility] [address] [place] [address] ATTN DEFICIT W HYPERACT (Primary Dx); OPPOSITIONAL DEFIANT DISORDER Social History Tobacco Use Types Packs/Day Years Used Date Smoking Tobacco: Never Assessed Comments Unknown Sex and Gender Information Value Date Recorded Sex Assigned at Not on file 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
--- OUTSIDE RECORDS SUMMARY | 2025-08-08 18:20 | XMS_ITS | Encounter Summary ---
Author Organization [facility] Address [address] [place] [address] Care Team Providers Care Regulatory Affairs Analyst Name Role Phone Unavailable Primary Care Provider Unavailabl e Encounter Details Date Type Department Care Team (Latest Contact Info) Description 03/09/2005 Outpatient Historical [facility] Medicine [place] [address] [phone] Jess Perez, [facility] [address] [place] [address] ATTN DEFICIT W HYPERACT (Primary Dx); OPPOSITIONAL DEFIANT DISORDER Social History Tobacco Use Types Packs/Day Years Used Date Smoking Tobacco: Never Assessed Comments Unknown Sex and Gender Information Value Date Recorded Sex Assigned at Not on file 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
--- OUTSIDE RECORDS SUMMARY | 2025-08-08 18:20 | XMS_ITS | Encounter Summary ---
Author Organization [facility] Address [address] [place] [address] Care Team Providers Care Patternmaker Metal Bench Name Role Phone Unavailable Primary Care Provider Unavailabl e Encounter Details Date Type Department Care Team (Latest Contact Info) Description 12/29/2004 Outpatient Historical [facility] Medicine [place] [address] [phone] Jess Perez, [facility] [address] [place] [address] ATTN DEFICIT W HYPERACT (Primary Dx); OPPOSITIONAL DEFIANT DISORDER Social History Tobacco Use Types Packs/Day Years Used Date Smoking Tobacco: Never Assessed Comments Unknown Sex and Gender Information Value Date Recorded Sex Assigned at Not on file 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
--- OUTSIDE RECORDS SUMMARY | 2025-08-08 18:20 | XMS_ITS | Encounter Summary ---
Author Organization [facility] Address [address] [place] [address] Care Team Providers Care Rn Interventional Name Role Phone Unavailable Primary Care Provider Unavailabl e Encounter Details Date Type Department Care Team (Latest Contact Info) Description 12/22/2004 Outpatient Historical [facility] Medicine [place] [address] [phone] Jess Perez, [facility] [address] [place] [address] ATTN DEFICIT W HYPERACT (Primary Dx); OPPOSITIONAL DEFIANT DISORDER Social History Tobacco Use Types Packs/Day Years Used Date Smoking Tobacco: Never Assessed Comments Unknown Sex and Gender Information Value Date Recorded Sex Assigned at Not on file 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
--- OUTSIDE RECORDS SUMMARY | 2025-08-08 18:20 | XMS_ITS | Encounter Summary ---
Author Organization [facility] Address [address] [place] [address] Care Team Providers Care Gold Charmer Name Role Phone Unavailable Primary Care Provider Unavailabl e Encounter Details Date Type Department Care Team (Latest Contact Info) Description 01/26/2005 Outpatient Historical [facility] Medicine [place] [address] [phone] Jess Perez, [facility] [address] [place] [address] ATTN DEFICIT W HYPERACT (Primary Dx); OPPOSITIONAL DEFIANT DISORDER Social History Tobacco Use Types Packs/Day Years Used Date Smoking Tobacco: Never Assessed Comments Unknown Sex and Gender Information Value Date Recorded Sex Assigned at Not on file 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
--- OUTSIDE RECORDS SUMMARY | 2025-08-08 18:20 | XMS_ITS | Encounter Summary ---
Author Organization [facility] Address [address] [place] [address] Care Team Providers Care Boiling House Hand Name Role Phone Unavailable Primary Care Provider Unavailabl e Encounter Details Date Type Department Care Team (Latest Contact Info) Description 09/01/2003 Outpatient Historical [facility] [address] [place] [phone] Jose Caicedo MD [address] [place] [phone] ATTN DEFICIT NONHYPERACT (Primary Dx); ACUTE BRONCHITIS; TRACHEA/BRONCHUS DIS NEC Social History Tobacco Use Types Packs/Day Years Used Date Smoking Tobacco: Never Assessed Comments Unknown Sex and Gender Information Value Date Recorded Sex Assigned at Not on file 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
[2025-08-08 18:25] VITALS: BP 134/93; PULSE 92; RESP 14; TEMP 36.6; O2SAT 96; BMI 49.1
[2025-08-08 19:31] LABS: Hematocrit 41.2 % (36-47); Hemoglobin 13.60 g/dL (11.27-16.99); Mean Corpuscular HGB Conc 33.0 g/dL (30-55); Mean Corpuscular Hemoglobin 29.8 pg (27-33); Mean Corpuscular Volume 90.2 fl (85-98); Nucleated Red Blood Cells % 0 %; Platelet Count 355 10^3/cmm (157-399); Red Blood Count 4.57 10^6/uL (3.85-5.65); White Blood Count 6.57 10^3/uL (3.29-11.43)
--- NOTE | 2025-08-08 19:36 | XRR_ITS ---
PROCEDURE INFORMATION: Exam: XR Abdomen Exam date and time: 08/08/2025 7:42 PM Age: 34 years old Clinical indication: Abdominal pain; Prior surgery; Surgery date: <1 month; Surgery type: Exploratory laparotomy; C/O lower abd pain with constipation TECHNIQUE: Imaging protocol: Radiologic exam of the abdomen. Views: Frontal supine view of the abdomen. 1 View. COMPARISON: CT abdomen pelvis w con* [id number] 07/25/2025 12:36 PM FINDINGS: Gastrointestinal tract: See Soft tissues finding. Bones/joints: See Soft tissues finding. Soft tissues: Body habitus obscures detail. Unremarkable bowel gas pattern. No acute osseous abnormality. Surgical clips overlie the abdomen and pelvis. XR/XR KUB portable [id number] IMPRESSION: Nonobstructive bowel gas pattern.
[2025-08-08 20:06] LABS: Alanine Aminotransferase 31 U/L (0-33); Albumin Level 4.4 g/dL (3.5-5.2); Alkaline Phosphatase 67 U/L (35-105); Anion Gap 17.8 (5-19); Aspartate Amino Transferase 17 U/L (0-32); Blood Urea Nitrogen 11 mg/dL (6-20); Calcium 9.7 mg/dL (8.5-10.5); Carbon Dioxide 23 mmol/L (22-29); Chloride 98 mmol/L (98-107); Creatinine Clr Calc Pharmacy 182.9614; Globulin 3.6 g/dL (1.3-4.6); Glucose 166 mg/dL (65-115); Osmolality Calculated 283 mOsm/kg (285-295); Potassium 3.8 mmol/L (3.5-5.1); Sodium 135 mmol/L (136-145); Total Protein 8.0 g/dL (6.6-8.7)
[2025-08-08 20:14] VITALS: BP 124/86; PULSE 76; O2SAT 97
[2025-08-08 20:30] LABS: Glucose Urine UA Negative (Normal); Nitrate Urine Negative (Negative); Specific Gravity, Urine 1.022 (1.005-1.030)
[2025-08-08 20:36] LABS: Add Urine Microscopic? YES
[2025-08-08] MEDS: hydrocortisone 2.5% cream 28 gm 1 APPLIC PR (20:41)
[2025-08-08 20:56] VITALS: BP 142/90; PULSE 80; O2SAT 94
[2025-08-08 21:49] VITALS: BP 146/108; PULSE 78; O2SAT 93
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
== END 2025-08-08 21:52 | disposition home or self-care (01) ==
PROVIDERS: Emergency Provider Student in an Organized Health Care Education/Training Program; PCP Family Medicine
DX: K60.0 Acute anal fissure (principal); E11.9 Type 2 diabetes mellitus without complications
CPT/HCPCS: 36415; 36416; 74018; 80053; 81001; 82962; 85025; 99284; J9999

== ENCOUNTER 2025-08-15 22:06 | Emergency (ER) | payer BC, MEDICAID, SELFPAY ==
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
[2025-08-15 22:10] VITALS: BP 160/99; PULSE 85; RESP 20; TEMP 36.4; O2SAT 95; BMI 50.4
--- OUTSIDE RECORDS SUMMARY | 2025-08-15 22:13 | XMS_ITS | Encounter Summary ---
Author Organization [facility] Address [address] [place] [address] Care Team Providers Care Pension Fund Manager Name Role Phone Unavailable Primary Care Provider Unavailabl e Encounter Details Date Type Department Care Team (Latest Contact Info) Description 06/18/2001 Outpatient Historical [facility] [place] [address], [place] [address] Jose Caicedo MD [address] [place] [address] Other, multiple, and unspecified sites, insect bite, nonvenomous, infected(919.5) (Primary Dx) Social History Tobacco Use Types Packs/Day Years Used Date Smoking Tobacco: Never Assessed Comments Unknown Sex and Gender Information Value Date Recorded Sex Assigned at Not on file Legal Sex Female 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
--- OUTSIDE RECORDS SUMMARY | 2025-08-15 22:13 | XMS_ITS | Encounter Summary ---
Author Organization [facility] Address 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 Gender Identity Not on file Sexual Orientation Not on file documented as of this encounter Plan of Treatment Not on file documented as of this encounter Procedures Procedure Name Priority Date/Time Associated Diagnosis Comments COMPREHENSIVE METABOLIC PANEL Routine 08/08/2025 12:19 PM CDT documented in this encounter Results * COMPREHENSIVE METABOLIC PANEL (08/08/2025 12:19 PM CDT) Blood us Abstract Provider CHEMISTRY ORDERABLES Final Res ult documented in this encounter Visit Diagnoses Not on filedocumented in this encounter Care Teams Door To Door Selling Distributor Relationship Specialty Start Date End Date Franck Baltazar MD [address] [address] PCP - General Family Practice 10/13/21 documented as of this encounter
--- OUTSIDE RECORDS SUMMARY | 2025-08-15 22:13 | XMS_ITS | Encounter Summary ---
Author Organization [facility] Address [address] [place] [address] Care Team Providers Care Business And Services Instructor Name Role Phone Franck Baltazar MD Primary Care Provider [phone] Reason for Visit * Auth/Cert (Routine) Specialty Diagnoses / Procedures Referred By Contac t Referred To Contact Rehabilitation Marielena Carbajal MD [address] [address] Phone: tel: fax: [facility] [address] [place] [address] Phone: tel: fax: Referral ID Status Reason Start Date Expiration Date Visits Re quested Visits Authorized [id number] 1 Encounter Details Date Type Department Care Team (Late st Contact Info) Description 07/31/2025 Hospital Encounter [facility] [address] [place] [phone] Marielena Carbajal MD [address] [address] Social History Tobacco Use Types [...] on file 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
--- OUTSIDE RECORDS SUMMARY | 2025-08-15 22:13 | XMS_ITS | Encounter Summary ---
Author Organization [facility] Address [address] [place] [address] Care Team Providers Care Supervisor Refractory Products Name Role Phone Unavailable Primary Care Provider Unavailabl e Encounter Details Date Type Department Care Team (Latest Contact Info) Description 12/17/2002 Outpatient Historical 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
--- OUTSIDE RECORDS SUMMARY | 2025-08-15 22:13 | XMS_ITS | Encounter Summary ---
Author Organization [facility] Address [address] [place] [address] Care Team Providers Care Fuel Efficient Automobile Designer Name Role Phone Unavailable Primary Care Provider Unavailabl e Encounter Details Date Type Department Care Team (Latest Contact Info) Description 01/01/2003 Outpatient Historical [facility] [address], [place] [phone] Jose Caicedo MD [address] [place] [phone] ATTN DEFICIT W HYPERACT (Primary Dx) Social History Tobacco Use Types Packs/Day Years Used Date Smoking Tobacco: Never Assessed Comments Unknown Sex and Gender Information Value Date Recorded Sex Assigned at Not on file Legal Sex Female 3:31 AM CASTING ROOM OPERATOR Gender Identity Not on file Sexual Orientation Not on file documented as of this encounter Plan of Treatment Not on file documented as of this encounter Visit Diagnoses Diagnosis Attention deficit disorder with hyperactivity(314.01)- Primary Attention deficit disorder with hyperactivity documented in this encounter
--- OUTSIDE RECORDS SUMMARY | 2025-08-15 22:13 | XMS_ITS | Encounter Summary ---
Author Organization [facility] Address [address] [place] [address] Care Team Providers Care Game Designer Name Role Phone Unavailable Primary Care Provider Unavailabl e Encounter Details Date Type Department Care Team (Latest Contact Info) Description 01/05/2001 Outpatient Historical [address] [phone] Viviana Delgadillo MD [address], [phone] Attention deficit disorder with hyperactivity(314.01 ) (Primary Dx); Benign neoplasm of skin, site unspecified Social History Tobacco Use Types Packs/Day Years Used Date Smoking Tobacco: Never Assessed Comments Unknown Sex and Gender Information Value Date Recorded Sex Assigned at Not on file 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
--- OUTSIDE RECORDS SUMMARY | 2025-08-15 22:13 | XMS_ITS | Encounter Summary ---
Author Organization [facility] Address [address] [place] [address] Care Team Providers Care Game Farm Helper Name Role Phone Unavailable Primary Care Provider Unavailabl e Encounter Details Date Type Department Care Team (Latest Contact Info) Description 11/30/2001 Outpatient Historical [facility] [address] [phone] Joan Ortiz MD [address] [place] [address] NASAL & SINUS DIS NEC (Primary Dx); NONINFEC GASTROENTERIT NEC Social History Tobacco Use Types Packs/Day Years Used Date Smoking Tobacco: Never Assessed Comments Unknown Sex and Gender Information Value Date Recorded Sex Assigned at Not on file Legal Sex Female 3:31 AM E LEARNING COORDINATOR Gender Identity Not on file Sexual [...]
--- OUTSIDE RECORDS SUMMARY | 2025-08-15 22:13 | XMS_ITS | Encounter Summary ---
Author Organization [facility] Address [address] [place] [address] Care Team Providers Care Mainspring Former [place] [employer] Name Role Phone Unavailable Primary Care Provider Unavailabl e Encounter Details Date Type Department Care Team (Latest Contact Info) Description 10/31/2001 Outpatient Historical [address] [phone] Viviana Delgadillo MD [address], [address] ATTN DEFICIT W HYPERACT (Primary Dx); ACUTE PHARYNGITIS Social History Tobacco Use Types Packs/Day Years Used Date Smoking Tobacco: Never Assessed Comments Unknown Sex and Gender Information Value Date Recorded Sex Assigned at Not on file Legal Sex Female 3:31 AM QUALITY ASSURANCE TEST PROGRAM MANAGER Gender Identity Not on file Sexual Orientation Not on file documented as of this encounter Plan of Treatment Not on file documented as of this encounter Visit Diagnoses Diagnosis Attention deficit disorder with hyperactivity(314.01)- Primary Attention deficit disorder with hyperactivity Acute pharyngitis documented in this encounter
--- OUTSIDE RECORDS SUMMARY | 2025-08-15 22:13 | XMS_ITS | Encounter Summary ---
Author Organization [facility] Address [address] [place] [address] Care Team Providers Care Shoe Clerk Name Role Phone Unavailable Primary Care Provider Unavailabl e Encounter Details Date Type Department Care Team (Latest Contact Info) Description 07/24/2002 Outpatient Historical [address] [phone] Viviana Delgadillo MD [address], [address] TRACHEA/BRONCHUS DIS NEC (Primary Dx); ACUTE FRONTAL SINUSITIS; VACCINE FOR DISEASE NEC Social History Tobacco Use Types Packs/Day Years Used Date Smoking Tobacco: Never Assessed Comments Unknown Sex and Gender Information Value Date Recorded Sex Assigned at Not on file Legal Sex Female 3:31 AM DIGITAL ASSET SPECIALIST Gender Identity Not on file Sexual [...]
--- OUTSIDE RECORDS SUMMARY | 2025-08-15 22:13 | XMS_ITS | Clinical Summary ---
Author Organization [facility] Address [address] [facility] [address] [place] [address] Phone Care Team Providers Care Stump Shooter Name Role Phone Unavailable Primary Care Provider [...] on file Legal Sex Female 3:31 AM CORPORATE COMMUNICATIONS ASSOCIATE Gender Identity Not on file Sexual Orientation [...]
--- OUTSIDE RECORDS SUMMARY | 2025-08-15 22:13 | XMS_ITS | Encounter Summary ---
Author Organization [facility] Address [address] [place] [address] Care Team Providers Care Inhalation Therapy Teacher Name Role Phone Unavailable Primary Care Provider Unavailabl e Encounter Details Date Type Department Care Team (Latest Contact Info) Description 04/22/2003 Outpatient Historical [facility] [address] [phone] Jose Caicedo MD [address] [place] [phone] ACUTE FRONTAL SINUSITIS (Primary Dx); ATTN DEFICIT NONHYPERACT; ALLERGY, UNSPECIFIED Social History Tobacco Use Types Packs/Day Years Used Date Smoking Tobacco: Never Assessed Comments Unknown Sex and Gender Information Value Date Recorded Sex Assigned at Not on file Legal Sex Female 3:31 AM SECURITY OPERATIONS SPECIALIST Gender Identity Not on file Sexual Orientation Not on file documented as of this encounter Plan of Treatment Not on file documented as of this encounter Visit Diagnoses Diagnosis Acute frontal sinusitis- Primary Attention deficit disorder without mention of hyperactivity Allergy, unspecified not elsewhere classified documented in this encounter
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
--- OUTSIDE RECORDS SUMMARY | 2025-08-15 22:13 | XMS_ITS | Encounter Summary ---
Author Organization [facility] Address [address] [place] [address] Care Team Providers Care Banquet Captain Name Role Phone Unavailable Primary Care Provider Unavailabl e Encounter Details Date Type Department Care Team (Latest Contact Info) Description 08/30/2001 Outpatient Historical [address] [phone] Viviana Delgadillo MD [address], [address] Attention deficit disorder with hyperactivity(314.01 ) (Primary Dx) Social History Tobacco Use Types Packs/Day Years Used Date Smoking Tobacco: Never Assessed Comments Unknown Sex and Gender Information Value Date Recorded Sex Assigned at Not on file 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
--- OUTSIDE RECORDS SUMMARY | 2025-08-15 22:13 | XMS_ITS | Encounter Summary ---
Author Organization [facility] Address [address] [place] [address] Care Team Providers Care Ripper Operator Name Role Phone Unavailable Primary Care Provider Unavailabl e Encounter Details Date Type Department Care Team (Latest Contact Info) Description 06/19/2002 Outpatient Historical [address] [phone] Viviana Delgadillo MD [address], [address] ATTN DEFICIT W HYPERACT (Primary Dx); VACCINE FOR DISEASE NEC Social History Tobacco Use Types Packs/Day Years Used Date Smoking Tobacco: Never Assessed Comments Unknown Sex and Gender Information Value Date Recorded Sex Assigned at Not on file 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
--- OUTSIDE RECORDS SUMMARY | 2025-08-15 22:13 | XMS_ITS | Encounter Summary ---
Author Organization [facility] Address [address] [place] [address] Care Team Providers Care Real Estate Financial Analyst Name Role Phone Unavailable Primary Care Provider Unavailabl e Encounter Details Date Type Department Care Team (Latest Contact Info) Description 09/26/2002 Outpatient Historical [address] [phone] Viviana Delgadillo MD [address] [place] [address], [address] ACUTE URI NOS (Primary Dx); ALLERGIC RHINITIS NOS; DERMATITIS NOS Social History Tobacco Use Types Packs/Day Years Used Date Smoking Tobacco: Never Assessed Comments Unknown Sex and Gender Information Value Date Recorded Sex Assigned at Not on file 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
--- OUTSIDE RECORDS SUMMARY | 2025-08-15 22:14 | XMS_ITS | Encounter Summary ---
Author Organization [facility] Address [address] [place] [address] Care Team Providers Care Dry Can Tender Name Role Phone Unavailable Primary Care Provider Unavailabl e Encounter Details Date Type Department Care Team (Latest Contact Info) Description 12/18/2002 Outpatient Historical [facility] [address] [phone] Jose Caicedo MD [address] [place] [phone] ATTN DEFICIT W HYPERACT (Primary Dx); SPRAIN OF ANKLE NOS Social History Tobacco Use Types Packs/Day Years Used Date Smoking Tobacco: Never Assessed Comments Unknown Sex and Gender Information Value Date Recorded Sex Assigned at Not on file 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
--- OUTSIDE RECORDS SUMMARY | 2025-08-15 22:14 | XMS_ITS | Encounter Summary ---
Author Organization [facility] Address [address] [place] [address] Care Team Providers Care Black Topper Name Role Phone Unavailable Primary Care Provider Unavailabl e Encounter Details Date Type Department Care Team (Latest Contact Info) Description 03/09/2005 Outpatient Historical [facility] Medicine [place] [address] [phone] Jess Perez, [facility] [facility] [address] [place] [address] ATTN DEFICIT W HYPERACT (Primary Dx); OPPOSITIONAL DEFIANT DISORDER Social History Tobacco Use Types Packs/Day Years Used Date Smoking Tobacco: Never Assessed Comments Unknown Sex and Gender Information Value Date Recorded Sex Assigned at Not on file 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
--- OUTSIDE RECORDS SUMMARY | 2025-08-15 22:14 | XMS_ITS | Encounter Summary ---
Author Organization [facility] Address [address] [place] [address] Care Team Providers Care Parts Classifier Name Role Phone Unavailable Primary Care Provider Unavailabl e Encounter Details Date Type Department Care Team (Latest Contact Info) Description 12/29/2004 Outpatient Historical [facility] Medicine [place] [address] [phone] Jess Perez, [facility] 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
--- OUTSIDE RECORDS SUMMARY | 2025-08-15 22:14 | XMS_ITS | Encounter Summary ---
Author Organization [facility] Address [address] [place] [address] Care Team Providers Care Carrier Operator Name Role Phone Unavailable Primary Care Provider Unavailabl e Encounter Details Date Type Department Care Team (Latest Contact Info) Description 01/05/2005 Outpatient Historical [facility] Medicine [place] [address] [place] [address], [place] [phone] Jess Perez, [facility] [address] [facility] [address] [place] [address] ATTN DEFICIT W HYPERACT (Primary Dx); OPPOSITIONAL DEFIANT DISORDER Social History Tobacco Use Types Packs/Day Years Used Date Smoking Tobacco: Never Assessed Comments Unknown Sex and Gender Information Value Date Recorded Sex Assigned at Not on file 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
--- OUTSIDE RECORDS SUMMARY | 2025-08-15 22:14 | XMS_ITS | Encounter Summary ---
Author Organization [facility] Address [address] [place] [address] Care Team Providers Care Ultimate Hoops Referee Name Role Phone Unavailable Primary Care Provider Unavailabl e Encounter Details Date Type Department Care Team (Latest Contact Info) Description 01/26/2005 Outpatient Historical 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
--- OUTSIDE RECORDS SUMMARY | 2025-08-15 22:14 | XMS_ITS | Encounter Summary ---
Author Organization [facility] Address [address] [place] [address] Care Team Providers Care Sales Representative Raw Fibers Name Role Phone Unavailable Primary Care Provider Unavailabl e Encounter Details Date Type Department Care Team (Latest Contact Info) Description 12/22/2004 Outpatient Historical [facility] Medicine [place] [address] [phone] Jess Perez, [facility] [address] [place] [address] ATTN DEFICIT W HYPERACT (Primary Dx); OPPOSITIONAL DEFIANT DISORDER Social History Tobacco Use Types Packs/Day Years Used Date Smoking Tobacco: Never Assessed Comments Unknown Sex and Gender Information Value Date Recorded Sex Assigned at Not on file 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
--- OUTSIDE RECORDS SUMMARY | 2025-08-15 22:14 | XMS_ITS | Encounter Summary ---
Author Organization [facility] Address [address] [place] [address] Care Team Providers Care Chapter Relations Administrator Name Role Phone Unavailable Primary Care Provider Unavailabl e Encounter Details Date Type Department Care Team (Latest Contact Info) Description 09/01/2003 Outpatient Historical [facility] [address], [place] [phone] Jose Caicedo MD [address] [place] [phone] ATTN DEFICIT NONHYPERACT (Primary Dx); ACUTE BRONCHITIS; [...]
[2025-08-15 22:47] VITALS: BP 146/95; PULSE 86; RESP 26; O2SAT 97
--- NOTE | 2025-08-15 23:12 | W.ED.ABDPA2 ---
HPI - Abdominal Pain General: Chief Complaint: Abdominal Pain Stated Complaint: SURGICAL SITE RE-OPENED Time Seen by Provider: 08/15/25 22:34 History of Present Illness: Patient is a female who presents to the emergency department with wound dehiscence that occurred today. The patient had recent surgery with mekhi that were removed this morning at approximately 08:00. While sitting in a car [place] this evening, the surgical wound reportedly opened. The patient's states she was trying to get some exercise by walking [place] little bit around [place] before returning to the car. The patient has been experiencing significant pain since her surgery and particularly since the mekhi were removed. The reports that the patient has difficulty sitting normally due to pain and needs to elevate her feet in the car. The patient currently complains of pain in her abdomen, back, and foot. She denies having taken any pain medication today. The patient's reports no fever. Related Data Home Medications ?Medication ?Instructions ?Recorded ?Confirmed semaglutide 0.25 mg or 0.5 mg (2 0.5 mg SUBCUT Q7D 06/16/25 08/15/25 mg/3 mL) subcutaneous pen injector (Ozempic) albuterol sulfate 90 mcg/actuation 2 puff inhalation Q4H PRN 06/23/25 08/15/25 aerosol inhaler shortness of breath or cough diclofenac sodium 75 mg 75 mg PO BID 08/15/25 08/15/25 tablet,delayed release hydrocodone 5 mg-acetaminophen 325 tab PO 08/15/25 08/15/25 mg tablet Previous Rx's ?Medication ?Instructions ?Recorded tizanidine 4 mg tablet 4 mg PO Q6H PRN muscle spasticity 06/23/25 #20 tabs acetaminophen 325 mg tablet 650 mg (2 x 325 mg) PO Q6H PRN 08/02/25 Mild/Mod Pain Or Temp >/= 101 #100 tabs oxycodone-acetaminophen 7.5 mg-325 1 tab PO Q6H PRN pain #7 tabs 08/16/25 mg tablet (Percocet) Allergies Allergy/AdvReac Type Severity Reaction Status Date / Time No Known Allergies Allergy Verified 08/15/25 08:08 [facility] ED PFSH: Medical History Depression with anxiety Cough Seasonal allergies Type 2 diabetes mellitus Bronchitis No pertinent past medical history neghx:htn, thyroid, dvt/pe PCP: Dr. Demarco History of diabetes mellitus Abnormal uterine bleeding (AUB) Surgical History No pertinent past surgical history Family History Father Diabetes Hypertension Mother Diabetes Sister Diabetes Grandmother Breast cancer paternal Denies family history of Colon cancer Ovarian cancer Prostate cancer Heart disease Hyperlipidemia Bleeding disorder Uterine cancer Thyroid disease Stroke Social History Smoking and tobacco/nicotine status: unknown if used tobacco/nicotine Physical Exam Const: GENERAL APPEARANCE: cooperative and anxious; not ill appearing and not frail appearing HENMT: COMMON NORMALS: normocephalic, atraumatic and Normal external nose present HEAD & SCALP: normocephalic and atraumatic FACE & SINUS: normal facial exam and face symmetric NOSE: Normal external nose present Eye: COMMON NORMALS: Equal, round and reactive pupils present and EOMs intact bilaterally PUPIL: Yes Equal, round and reactive pupils present Neck/C-Spine: GENERAL: Yes trachea midline Chest: CHEST: Yes Symmetrical chest wall rise Resp: COMMON NORMALS: normal respiratory effort, No retractions, No use of accessory muscles and clear to auscultation bilaterally AUSCULTATION: clear to auscultation bilaterally Cardio: COMMON NORMALS: regular rate and regular rhythm RATE: regular rate RHYTHM: regular rhythm GI: COMMON NORMALS: Normal to inspection, nondistended, normoactive bowel sounds present Extremity: COMMON NORMALS: no pedal edema Neuro: ADITHYA COMA SCALE: document GCS findings [place] coma scale eye opening: Spontaneous Adithya coma scale verbal response: Orientated Adithya coma scale motor response: Obey commands [place] coma scale total score: 15 SENSORY EXAM: Yes extremities (intact) Psych: COMMON NORMALS: speech normal SPEECH: Yes normal speech Skin: NARRATIVE SKIN EXAM: Anterior vertical laparotomy incision mostly intact. 1.5 cm opening/dehiscence inferior to the umbilicus. No active bleeding. No purulent drainage. Course Vital Signs: Vital signs: Vital Signs Temperature 97.6 F 08/15/25 22:10 Pulse Rate 97 08/16/25 01:40 Respiratory Rate 18 08/16/25 01:40 Blood Pressure 143/98 08/16/25 01:40 Pulse Oximetry 97 08/16/25 01:40 Oxygen Delivery Me thod Room Air 08/16/25 00:07 MDM - Abdominal Pain Medical Decision Making Patient is quite distressed on exam. She appears very anxious. There is a small area of wound dehiscence just inferior to the umbilicus. There is no evidence of wound infection or large hematoma. There is no active bleeding. Vitals are normal. CBC and BMP are only remarkable for hyperglycemia. The patient's lactic acid is mildly elevated, but without any secondary findings infection or significant inflammation. CRP is only 5. Hemoglobin is stable from prior. She is given a wet-to-dry dressing for the small area of dehiscence. She will continue this wound care. Close outpatient follow-up with her surgeon. Pain control. Lab Data 08/15/25 23:37 08/15/25 23:37 Labs/Radiology: Laboratory Results WBC 6.51 10^3/uL (3.29-11.43) 08/15/25 23:37 RBC 4.19 10^6/uL (3.85-5.65) 08/15/25 23:37 Hgb 12.90 g/dL (11.27-16.99) 08/15/25 23:37 Hct 38.0 % (36-47) 08/15/25 23:37 MCV 90.7 fl (85-98) 08/15/25 23:37 MCH 30.8 pg (27-33) 08/15/25 23:37 MCHC 33.9 g/dL (30-55) 08/15/25 23:37 RDW 13.7 % (12.1-15.1) 08/15/25 23:37 Plt Count 313 10^3/cmm (157-399) 08/15/25 23:37 MPV 10.4 fL (7.4-10.4) 08/15/25 23:37 Neut % (Auto) 49.5 % 08/15/25 23:37 Lymph % (Auto) 34.3 % 08/15/25 23:37 [place] % (Auto) 7.4 % 08/15/25 23:37 Eos % (Auto) 7.2 % 08/15/25 23:37 Baso % (Auto) 1.1 % 08/15/25 23:37 Neut # (Auto) 3.23 10^3/uL (1.8-7.7) 08/15/25 23:37 Lymph # (Auto) 2.2 10^3/uL (0.8-4.8) 08/15/25 23:37 [place] # (Auto) 0.5 10^3/uL (0.2-0.9) 08/15/25 23:37 Eos # (Auto) 0.5 10^3/uL (0.0-0.8) 08/15/25 23:37 Baso # (Auto) 0.1 10^3/uL (0.0-0.1) 08/15/25 23:37 Nucleated RBC % (auto) 0 % 08/15/25 23:37 Nucleated RBCs # 0.0 /100WBC 08/15/25 23:37 Sodium 136 mmol/L (136-145) 08/15/25 23:37 Potassium 4.0 mmol/L (3.5-5.1) 08/15/25 23:37 Chloride 97 mmol/L (98-107) L 08/15/25 23:37 Carbon Dioxide 24 mmol/L (22-29) 08/15/25 23:37 Anion Gap 19.0 (5-19) 08/15/25 23:37 BUN 10 mg/dL (6-20) 08/15/25 23:37 Creatinine 0.6 mg/dL (0.5-0.9) 08/15/25 23:37 GFR Calculation 114.4 mL/min (90-130) 08/15/25 23:37 Glucose 301 mg/dL (65-115) H 08/15/25 23:37 Calculated Osmolality 292 mOsm/kg (285-295) 08/15/25 23:37 Lactic Acid 3.6 mmol/L (0.5-2.2) H 08/15/25 23:37 Calcium 9.5 mg/dL (8.5-10.5) 08/15/25 23:37 Total Bilirubin 0.2 mg/dL (0.15-1.2) 08/15/25 23:37 AST 22 U/L (0-32) 08/15/25 23:37 ALT 30 U/L (0-33) 08/15/25 23:37 Alkaline Phosphatase 93 U/L (35-105) 08/15/25 23:37 C-Reactive Protein 5.0 mg/L (0.0-4.9) H 08/15/25 23:37 Total Protein 7.4 g/dL (6.6-8.7) 08/15/25 23:37 Albumin 4.2 g/dL (3.5-5.2) 08/15/25 23:37 Globulin 3.2 g/dL (1.3-4.6) 08/15/25 23:37 No radiology studies performed this visit Discharge Plan Discharge Patient Disposition: Home Clinical Impression: Dehiscence of incision Qualifiers: Encounter type: initial encounter Qualified Code(s): T81.31XA - Disruption of external operation (surgical) wound, not elsewhere classified, initial encounter Condition: Stable Prescriptions: Continued oxycodone-acetaminophen [Percocet] 7.5-325 mg tablet 1 tab PO Q6H PRN (Reason: pain) Qty: 7 0RF No Action hydrocodone-acetaminophen 5-325 mg tablet PO diclofenac sodium 75 mg tablet,delayed release (DR/EC) 75 mg PO BID Ozempic 0.25 mg or 0.5 mg (2 mg/3 mL) pen injector 0.5 mg SUBCUT Q7D Rx Instructions: Monday tizanidine 4 mg tablet 4 mg PO Q6H PRN (Reason: muscle spasticity) Qty: 20 0RF Rx Instructions: do not exceed 3 doses per 24 hrs albuterol sulfate 90 mcg/actuation HFA aerosol inhaler 2 puff INHALATION Q4H PRN (Reason: shortness of breath or cough) acetaminophen 325 mg Tablet 650 mg PO Q6H PRN (Reason: Mild/Mod Pain Or Temp >/= 101) Qty: 100 0RF Discharge Orders: Discharge ED (Routine); Ordered 08/16/25 Ordered By: Amish Rai Referrals: Alfredo Pimentel MD [Physician, General Surgery] - 1-3 days Franck Baltazar [Primary Care Provider, Family Practice] Patient Instructions: Wound Dehiscence (ED), Opioid Safety, Pain Management, Patient Portal & Steffen Instructions Activity Restrictions/Additional Instructions: Perform wet-to-dry dressing changes as shown in the emergency department. Call your doctor on Monday for a follow-up appointment. Use pain medication sparingly, and as directed. Return for problems. Print Language: Norwegian Coding Level of Care Code ED Product Development Worker for Estephania Jack
[2025-08-16 00:07] VITALS: BP 127/89; PULSE 90; RESP 20; O2SAT 98
[2025-08-16] MEDS: ondansetron 2 mg/ML SDV 2 mL 4 MG IVP (00:07)
[2025-08-16] MEDS: HYDROmorphone 0.5 MG/0.5 ML INJ 1 MG IVP (00:07)
[2025-08-16 00:20] LABS: Hematocrit 38.0 % (36-47); Hemoglobin 12.90 g/dL (11.27-16.99); Lactic Sepsis W/Reflex 3.6 mmol/L (0.5-2.2); Mean Corpuscular HGB Conc 33.9 g/dL (30-55); Mean Corpuscular Hemoglobin 30.8 pg (27-33); Mean Corpuscular Volume 90.7 fl (85-98); Nucleated Red Blood Cells % 0 %; Platelet Count 313 10^3/cmm (157-399); Red Blood Count 4.19 10^6/uL (3.85-5.65); White Blood Count 6.51 10^3/uL (3.29-11.43)
[2025-08-16 00:21] LABS: Alanine Aminotransferase 30 U/L (0-33); Albumin Level 4.2 g/dL (3.5-5.2); Alkaline Phosphatase 93 U/L (35-105); Anion Gap 19.0 (5-19); Aspartate Amino Transferase 22 U/L (0-32); Blood Urea Nitrogen 10 mg/dL (6-20); Calcium 9.5 mg/dL (8.5-10.5); Carbon Dioxide 24 mmol/L (22-29); Chloride 97 mmol/L (98-107); Creatinine Clr Calc Pharmacy 185.9881; Globulin 3.2 g/dL (1.3-4.6); Glucose 301 mg/dL (65-115); Osmolality Calculated 292 mOsm/kg (285-295); Potassium 4.0 mmol/L (3.5-5.1); Reflex Lactate Order REFLEX LACTIC ORDERD; Sodium 136 mmol/L (136-145); Total Protein 7.4 g/dL (6.6-8.7)
[2025-08-16 01:40] VITALS: BP 143/98; PULSE 97; RESP 18; O2SAT 97
== END 2025-08-16 01:43 | disposition home or self-care (01) ==
PROVIDERS: Emergency Provider Emergency Medicine; PCP Family Medicine
DX: T81.31XA Disruption of external operation (surgical) wound, not elsewhere classified, initial encounter (principal); X58.XXXA Exposure to other specified factors, initial encounter; E11.9 Type 2 diabetes mellitus without complications
CPT/HCPCS: 80053; 83605; 85025; 86140; 96374; 96375; 99284; J1171; J2405

== ENCOUNTER 2025-09-10 17:52 | Emergency (ER) | payer OTHER, BC, MEDICAID, SELFPAY ==
[2025-09-10 17:55] VITALS: BP 138/89; PULSE 98; TEMP 36.7; O2SAT 98; BMI 32.4
--- NOTE | 2025-09-10 18:16 | CTR_ITS ---
PROCEDURE INFORMATION: Exam: CT Abdomen And Pelvis With Contrast Exam date and time: 09/10/2025 7:14 PM Age: 34 years old Clinical indication: Abdominal pain; Prior surgery; Surgery date: 1-6 months; Surgery type: Tubal, exploratory SX post tubal; PT arrives pov C/O abd pain for the past few weeks and getting worse. PT states she had a recent abd surgery here and unsure of what all was done. ; Additional info: Severe central abd pain TECHNIQUE: Imaging protocol: Computed tomography of the abdomen and pelvis with contrast. Radiation optimization: All CT scans at this facility use at least one of these dose optimization techniques: automated exposure control; mA and/or kV adjustment per patient size (includes targeted exams where dose is matched to clinical indication); or iterative reconstruction. Contrast material: [id number]; Contrast volume: 100 ml; Contrast route: INTRAVENOUS (IV); COMPARISON: CT abdomen pelvis w con* [id number] 07/25/2025 12:36 PM RADIATION DOSE METRICS: Total DLP (mGy-cm): 1335.53 FINDINGS: Liver: The liver is enlarged, measuring 23.2 cm craniocaudal. Hepatic steatosis. No suspicious liver lesion. Gallbladder and biliary ducts: Normal. No calcified stones. No ductal dilation. Pancreas: Normal. No ductal dilation. Spleen: Normal. No splenomegaly. Adrenal glands: Normal. No mass. Kidneys and ureters: Stable subcentimeter left renal hypodensity, too small to characterize but likely a cyst. Stomach and bowel: Unremarkable. No obstruction. No mucosal thickening. Appendix: No evidence of appendicitis. Intraperitoneal space: Interval resolution of previously seen postsurgical pneumoperitoneum. Vasculature: Unremarkable. No abdominal aortic aneurysm. Lymph nodes: Unremarkable. No enlarged lymph nodes. Urinary bladder: Unremarkable as visualized. Reproductive: Unremarkable as visualized. Bones/joints: Unremarkable. No acute fracture. Soft tissues: Healing anterior abdominal wall midline incision. CT/CT abdomen pelvis w con* [id number] IMPRESSION: 1. No acute findings. 2. Hepatomegaly with hepatic steatosis. COMMENTS: Consistent with the [employer]'s Incidental Findings Committee white paper (J Am Windy Radiol 2018): Any incidental renal lesion less than 1 cm or classified as too small to characterize, or any incidental cystic renal lesion characterized as simple-appearing, is likely benign. No follow-up imaging is recommended for these lesions per consensus recommendations based on imaging criteria.
--- NOTE | 2025-09-10 18:18 | ED_ITS ---
HPI - Abdominal Pain 2 General: Chief Complaint: Abdominal Pain Stated Complaint: ABD Pain Time Seen by Provider: 09/10/25 18:04 History of Present Illness: Patient is a 34-year-old female that underwent exploratory laparotomy 07/25, complains of on and off worsening ripping central abdominal pain associated with nausea without emesis. She states she is passing gas. She was seen here for wound dehiscence. She has not followed up with Dr. Pimentel. She did call Dr. Pimentel's office, and nurse recommended she come to the ER. No change in stools. Location: Periumbilical Severity: moderate Quality: cramping, stabbing and fullness Radiation: none Associated Symptoms: Reports nausea and vomiting; Denies chills, dysuria and fever(s) Related Data Home Medications ?Medication ?Instructions ?Recorded ?Confirmed semaglutide 0.25 mg or 0.5 mg (2 0.5 mg SUBCUT Q7D 08/15/25 mg/3 mL) subcutaneous pen injector ([employer]) albuterol sulfate 90 mcg/actuation 2 puff inhalation Q 4H PRN 06/23/25 08/15/25 aerosol inhaler shortness of breath or cough diclofenac sodium 75 mg 75 mg PO BID 08/15/25 tablet,delayed release hydrocodone 5 mg-acetaminophen 325 tab PO 08/15/25 mg tablet Previous Rx's ?Medication ?Instructions ?Recorded tizanidine 4 mg tablet 4 mg PO Q6H PRN muscle spast icity 06/23/25 #20 tabs acetaminophen 325 mg tablet 650 mg (2 x 325 mg) PO Q6H PRN 08/02/25 Mild/Mod Pain Or Temp >/= 101 #100 tabs oxycodone-acetaminophen 7.5 mg-325 1 tab PO Q6H PRN pa in #7 tabs 08/16/25 mg tablet (Percocet) amoxicillin 500 mg-potassium 1 tab PO BID #14 tabs 09/13 clavulanate 125 mg tablet (Augmentin) ondansetron 4 mg disintegrating 4 mg PO Q8H PRN nausea and 09/10/25 tablet vomiting 4 days #14 tabs Allergies Allergy/AdvReac Type Severity Reaction Status Date / Time gabapentin Allergy Unknown Verified 09/10/25 18:01 Review of Systems 2 Const: Denies: fever(s), chills, change in weight or fatigue Eyes: Denies: change in vision Card: Denies: chest pain Resp: Denies: dyspnea GI: Reports: abdominal pain, nausea and vomiting; Denies: pain on defecation : Denies: dysuria Musc: Denies: neck pain or back pain Skin/Breast: Reports: skin tenderness and sores; Denies: rash, nipple discharge or breast mass Neuro: Denies: seizure-like activity Psych: Denies: anxiety or depression Marcus/Lymph: Denies: easy bruising PFSH ED 2 PFSH: Medical History (Updated 09/10/25 @ 20:34 by PRANAV Miller) Depression with anxiety Cough Seasonal allergies Type 2 diabetes mellitus Bronchitis No pertinent past medical history neghx:htn, thyroid, dvt/pe PCP: Dr. Demarco History of diabetes mellitus Abnormal uterine bleeding (AUB) Surgical History No pertinent past surgical history Family History Father Diabetes Hypertension Mother Diabetes Sister Diabetes Grandmother Breast cancer paternal Denies family history of Colon cancer Ovarian cancer Prostate cancer Heart disease Hyperlipidemia Bleeding disorder Uterine cancer Thyroid disease Stroke Social History Smoking and tobacco/nicotine status: unknown if used tobacco/nicotine Physical Exam 2 Const: GENERAL APPEARANCE: cooperative and anxious; not ill appearing and not frail appearing HENMT: COMMON NORMALS: normocephalic, atraumatic and Normal external nose present HEAD & SCALP: normocephalic and atraumatic FACE & SINUS: normal facial exam and face symmetric NOSE: Normal external nose present Eye: COMMON NORMALS: Equal, round and reactive pupils present and EOMs intact bilaterally PUPIL: Yes Equal, round and reactive pupils present Neck/C-Spine: GENERAL: Yes trachea midline Chest: CHEST: Yes Symmetrical chest wall rise Resp: COMMON NORMALS: normal respiratory effort, No retractions, No use of accessory muscles and clear to auscultation bilaterally AUSCULTATION: clear to auscultation bilaterally Cardio: COMMON NORMALS: regular rate and regular rhythm RATE: regular rate RHYTHM: regular rhythm GI: COMMON NORMALS: Normal to inspection, nondistended, normoactive bowel sounds present Extremity: COMMON NORMALS: no pedal edema Neuro: ADITHYA COMA SCALE: document GCS findings Adithya coma scale eye opening: Spontaneous Adithya coma scale verbal response: Orientated [place] coma scale motor response: Obey commands Adithya coma scale total score: 15 S ENSORY EXAM: Yes extremities (intact) Psych: COMMON NORMALS: speech normal SPEECH: Yes normal speech Skin: NARRATIVE SKIN EXAM: Dehiscence at umbilicus distal right, minimal yellow serosanguineous drainage. Course 2 Vital Signs: Vital signs: Vital Signs Temperature 98.1 F 09/10/25 17:55 Pulse Rate 67 09/10/25 22:01 Respiratory Rate 14 09/10/25 22:01 Blood Pressure 133/79 09/10/25 22:01 Pulse Oximetry 96 09/10/25 22:01 Oxygen Delivery Me thod Room Air 09/10/25 18:35 MDM - Abdominal Pain Medical Decision Making Patient is without any acute findings on physical exam other than known dehisence. CT is without acute changes. Electrolytes are without changes. Suspect functional issue with slow transit. Recommend prokinetic. D/w patient. She / states understanding Medical Records I reviewed the patient's medical records. Lab Data I reviewed the patient's lab results. 09/10/25 18:30 09/10/25 18:30 Labs/Radiology: Radiology Impressions Abdomen/Pelvis CT 09/10/25 18:16 IMPRESSION: 1. No acute findings. 2. Hepatomegaly with hepatic steatosis. COMMENTS: Consistent with the [employer]'s Incidental Findings Committee white paper (J Am Windy Radiol 2018): Any incidental renal lesion less than 1 cm or classified as too small to characterize, or any incidental cystic renal lesion characterized as simple-appearing, is likely benign. No follow-up imaging is recommended for these lesions per consensus recommendations based on imaging criteria. Laboratory Results WBC 7.14 10^3/uL (3.29-11.43) 09/10/25 18:30 RBC 4.52 10^6/uL (3.85-5.65) 09/10/25 18:30 Hgb 13.40 g/dL (11.27-16.99) 09/10/25 18:30 Hct 40.2 % (36-47) 09/10/25 18:30 MCV 88.9 fl (85-98) 09/10/25 18: MCH 29.6 pg (27-33) 09/10/25 18: MCHC 33.3 g/dL (30-55) 09/10/25 18: RDW 13.5 % (12.1-15.1) 09/10/25 18: Plt Count 324 10^3/cmm (157-399) 09/10/25 18: MPV 9.5 fL (7.4-10.4) 09/10/25 18: Neut % (Auto) 55.8 % 09/10/25 18: Lymph % (Auto) 31.2 % 09/10/25 18: Maries % (Auto) 7.4 % 09/10/25 18: Eos % (Auto) 4.9 % 09/10/25 18: Baso % (Auto) 0.4 % 09/10/25: Neut # (Auto) 3.98 10^3/uL (1.8-7.7) 09/10/25 18: Lymph # (Auto) 2.2 10^3/uL (0.8-4.8) 09/10/25 18: Maries # (Auto) 0.5 10^3/uL (0.2-0.9) 09/10/25 18:30 Eos # (Auto) 0.4 10^3/uL (0.0-0.8) 09/10/25 18: Baso # (Auto) 0.0 10^3/uL (0.0-0.1) 09/10/25 18: Nucleated RBC % (auto) 0 % 09/10/25 18: Nucleated RBCs # 0.0 /100WBC 09/10/25 18:30 Sodium 135 mmol/L (136-145) L 09/10/25 18: Potassium 4.0 mmol/L (3.5-5.1) 09/10/25 18:30 Chloride 96 mmol/L (98-107) L 09/10/25 18: Carbon Dioxide 22 mmol/L (22-29) 09/10/25 18: Anion Gap 21.0 (5-19) H 09/10/25 18: BUN 10 mg/dL (6-20) 09/10/25 18: Creatinine 0.6 mg/dL (0.5-0.9) 09/10/25 18: GFR Calculation 114.4 mL/min (90-130) 09/10/25 18: Glucose 238 mg/dL (65-115) H 09/10/25 18: Calculated Osmolality 287 mOsm/kg (285-295) 09/10/25 18: Calcium 9.3 mg/dL (8.5-10.5) 09/10/25 18: Total Bilirubin 0.2 mg/dL (0.15-1.2) 09/10/25 18: AST 25 U/L (0-32) 09/10/25 18: ALT 36 U/L (0-33) H 09/10/25 18: Alkaline Phosphatase 86 U/L (35-105) 09/10/25 18: Total Protein 7.5 g/dL (6.6-8.7) 09/10/25: Albumin 4.2 g/dL (3.5-5.2) 09/10/25: Globulin 3.3 g/dL (1.3-4.6) 09/10/25: Lipase 52 U/L (13-60) 09/10/25 18: HCG, Qual Negative (Negative) 09/10/25 18: Urine Color Yellow (Yellow) 09/10/25 18:45 Urine Appearance Clear (CLEAR) 09/10/25: Urine pH 5.0 (5-7) 09/10/25: Ur Specific [place] 1.024 (1.005-1.030) 09/10/25 18: Urine Protein Negative (Negative) 09/10/25 18: Urine Glucose (UA) Negative (Normal) 09/10/25: Urine Ketones 1+ (Negative) H 09/10/25 18: Urine Blood Trace (Negative) A 09/10/25 18:45 Urine Nitrate Negative (Negative) 09/10/25 18: Urine Bilirubin Negative (Negative) 09/10/25: Urine Urobilinogen 0.2 mg/dL (Negative) 09/10/25 18: Ur Leukocyte Esterase Negative (Negative) 09/10/25 18:45 Urine RBC 0-2 /hpf (0-2) 09/10/25 18:45 Urine WBC 0-5 /hpf (0-5) 09/10/25 18:45 Ur Squamous Epith Cells 0-5 /hpf (0-5) 09/10/25 18:45 Amorphous Sediment Not Reportable 09/10/25 18:45 Urine Bacteria Trace /hpf (NONE) 09/10/25 18:45 Hyaline Casts 0.40 /lpf 09/10/25 18:45 All radiology interpretation(s) finalized by discharge Discharge Plan Discharge Patient Disposition: Home Clinical Impression: Abdominal pain Qualifiers: Abdominal location: periumbilical Qualified Code(s): R10.33 - Periumbilical pain Constipation Qualifiers: Constipation type: slow transit constipation Qualified Code(s): K59.01 - Slow transit constipation Condition: Stable Prescriptions: New ondansetron 4 mg tablet,disintegrating 4 mg PO Q8H PRN (Reason: nausea and vomiting) 4 Days Qty: 14 0RF No Action hydrocodone-acetaminophen 5-325 mg tablet PO diclofenac sodium 75 mg tablet,delayed release (DR/EC) 75 mg PO BID Ozempic 0.25 mg or 0.5 mg (2 mg/3 mL) pen injector 0.5 mg SUBCUT Q7D Rx Instructions: Monday amoxicillin-pot clavulanate [Augmentin] 500-125 mg tablet 1 tab PO BID Qty: 14 0RF tizanidine 4 mg tablet 4 mg PO Q6H PRN (Reason: muscle spasticity) Qty: 20 0RF Rx Instructions: do not exceed 3 doses per 24 hrs albuterol sulfate 90 mcg/actuation HFA aerosol inhaler 2 puff INHALATION Q4H PRN (Reason: shortness of breath or cough) oxycodone-acetaminophen [Percocet] 7.5-325 mg tablet 1 tab PO Q6H PRN (Reason: pain) Qty: 7 0RF acetaminophen 325 mg Tablet 650 mg PO Q6H PRN (Reason: Mild/Mod Pain Or Temp >/= 101) Qty: 100 0RF Discharge Orders: Discharge ED (Routine); Ordered 09/10/25 Ordered By: Kendra Zamora Referrals: Franck Baltazar [Primary Care Provider, Family Practice] Discharge Diet: Clear Liquid Discharge Activity: Resume usual activity Patient Instructions: Clear Liquid Diet (ED), Abdominal Pain (ED), Opioid Safety, Pain Management, Patient Portal & Steffen Instructions Activity Restrictions/Additional Instructions: - Clear liquid diet until all your abdominal pain resolves -Start a probiotic daily. - Zofran was sent to the pharmacy. Utilize sparingly. -Follow-up with Dr. Pimentel regarding your abdominal pain. Please give him feedback after a clear liquid diet, and your probiotic. - Return to ED if you do have worsening abdominal pain, fever greater than 100.4 ?F Thank you for choosing [facility] for your healthcare needs today. You have been screened and evaluated and felt safe for discharge. Health conditions do change or evolve sometimes and as such it is important that you follow up with your Primary Doctor to be re checked, 3-5 days is a general good time frame for follow up. You are always welcome to return to the ED for re assessment if your symptoms are worsening or you have new concerns Stand Alone Forms: Work/School Release Print Language: Japanese Coding Level of Care Code ED Risk Control Field Representative for Estephania Jack
[2025-09-10 18:35] VITALS: O2SAT 97
[2025-09-10 18:37] LABS: Hematocrit 40.2 % (36-47); Hemoglobin 13.40 g/dL (11.27-16.99); Mean Corpuscular HGB Conc 33.3 g/dL (30-55); Mean Corpuscular Hemoglobin 29.6 pg (27-33); Mean Corpuscular Volume 88.9 fl (85-98); Nucleated Red Blood Cells % 0 %; Platelet Count 324 10^3/cmm (157-399); Red Blood Count 4.52 10^6/uL (3.85-5.65); White Blood Count 7.14 10^3/uL (3.29-11.43)
--- OUTSIDE RECORDS SUMMARY | 2025-09-10 18:47 | XMS_ITS | Clinical Summary ---
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
--- OUTSIDE RECORDS SUMMARY | 2025-09-10 18:47 | XMS_ITS | Encounter Summary ---
Author Organization [facility] Address [address] [place] [address] Care Team Providers Care Platform Man Name Role Phone Unavailable Primary Care Provider Unavailabl e Encounter Details Date Type Department Care Team (Latest Contact Info) Description 06/18/2001 Outpatient Historical [facility] Medicine [place] [address], [place] [address] Jose Caicedo MD [address] [place] [address] Other, multiple, and unspecified sites, insect bite, nonvenomous, infected(919.5) (Primary Dx) Social History Tobacco Use Types Packs/Day Years Used Date Smoking Tobacco: Never Assessed Comments Unknown Sex and Gender Information Value Date Recorded Sex Assigned at Not on file 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
--- OUTSIDE RECORDS SUMMARY | 2025-09-10 18:48 | XMS_ITS | Encounter Summary ---
Author Organization [facility] Address [address] [place] [address] Care Team Providers Care Employee Health Nurse Name Role Phone Unavailable Primary Care Provider Unavailabl e Encounter Details Date Type Department Care Team (Latest Contact Info) Description 12/29/2004 Outpatient Historical [facility] Medicine [place] [address] [phone] Jess Perez, 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
--- OUTSIDE RECORDS SUMMARY | 2025-09-10 18:48 | XMS_ITS | Encounter Summary ---
Author Organization [facility] Address [address] [place] [address] Care Team Providers Care Clay Carman Name Role Phone Unavailable Primary Care Provider Unavailabl e Encounter Details Date Type Department Care Team (Latest Contact Info) Description 01/05/2001 Outpatient Historical [address] [phone] Viviana Delgadillo MD [address], [id number] Attention deficit disorder with hyperactivity(314.01 ) (Primary Dx); Benign neoplasm of skin, site unspecified Social History Tobacco Use Types Packs/Day Years Used Date Smoking Tobacco: Never Assessed Comments Unknown Sex and Gender Information Value Date Recorded Sex Assigned at Not on file 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
--- OUTSIDE RECORDS SUMMARY | 2025-09-10 18:48 | XMS_ITS | Encounter Summary ---
Author Organization [facility] Address [address] [place] [address] Care Team Providers Care Backend Developer Name Role Phone Unavailable Primary Care Provider Unavailabl e Encounter Details Date Type Department Care Team (Latest Contact Info) Description 01/01/2003 Outpatient Historical [facility] [address], [place] [phone] Jose Caicedo MD [address] [place] [phone] ATTN DEFICIT W HYPERACT (Primary Dx) Social History Tobacco Use Types Packs/Day Years Used Date Smoking Tobacco: Never Assessed Comments Unknown Sex and Gender Information Value Date Recorded Sex Assigned at Not on file 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
--- OUTSIDE RECORDS SUMMARY | 2025-09-10 18:48 | XMS_ITS | Encounter Summary ---
Author Organization [facility] Address [address] [place] [address] Care Team Providers Care Staff Radiologist Name Role Phone Unavailable Primary Care Provider Unavailabl e Encounter Details Date Type Department Care Team (Latest Contact Info) Description 10/31/2001 Outpatient Historical [address] [phone] Viviana Delgadillo MD [address], [address] ATTN DEFICIT W HYPERACT (Primary Dx); ACUTE PHARYNGITIS Social History Tobacco Use Types Packs/Day Years Used Date Smoking Tobacco: Never Assessed Comments Unknown Sex and Gender Information Value Date Recorded Sex Assigned at Not on file 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
--- OUTSIDE RECORDS SUMMARY | 2025-09-10 18:48 | XMS_ITS | Encounter Summary ---
Author Organization [facility] Address [address] [place] [address] Care Team Providers Care Rotating Equipment Specialist Name Role Phone Unavailable Primary Care Provider Unavailabl e Encounter Details Date Type Department Care Team (Latest Contact Info) Description 01/26/2005 Outpatient Historical [facility] Medicine [place] [address] [phone] Jess Perez, [facility] [address] [facility] [address] [place] [address] ATTN DEFICIT W HYPERACT (Primary Dx); OPPOSITIONAL DEFIANT DISORDER Social History Tobacco Use Types Packs/Day Years Used Date Smoking Tobacco: Never Assessed Comments Unknown Sex and Gender Information Value Date Recorded Sex Assigned at Not on file 

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
--- OUTSIDE RECORDS SUMMARY | 2025-09-10 18:48 | XMS_ITS | Encounter Summary ---
Author Organization [facility] Address [address] [place] [address] Care Team Providers Care Coater Brake Linings Name Role Phone Unavailable Primary Care Provider Unavailabl e Encounter Details Date Type Department Care Team (Latest Contact Info) Description 07/24/2002 Outpatient Historical [address] [phone] Viviana Delgadillo MD [address], [address] TRACHEA/BRONCHUS DIS NEC (Primary Dx); ACUTE FRONTAL SINUSITIS; VACCINE FOR DISEASE NEC Social History Tobacco Use Types Packs/Day Years Used Date Smoking Tobacco: Never Assessed Comments Unknown Sex and Gender Information Value Date Recorded Sex Assigned at Not on file 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
--- OUTSIDE RECORDS SUMMARY | 2025-09-10 18:48 | XMS_ITS | Encounter Summary ---
Author Organization [facility] Address [address] [place] [address] Care Team Providers Care Ice Skater Name Role Phone Unavailable Primary Care Provider Unavailabl e Encounter Details Date Type Department Care Team (Latest Contact Info) Description 04/22/2003 Outpatient Historical [facility] [address], [place] [phone] Jose Caicedo MD [address] [place] [phone] ACUTE FRONTAL SINUSITIS (Primary Dx); ATTN DEFICIT NONHYPERACT; ALLERGY, UNSPECIFIED Social History Tobacco Use Types Packs/Day Years Used Date Smoking Tobacco: Never Assessed Comments Unknown Sex and Gender Information Value Date Recorded Sex Assigned at Not on file 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
--- OUTSIDE RECORDS SUMMARY | 2025-09-10 18:48 | XMS_ITS | Encounter Summary ---
Author Organization [facility] Address [address] [place] [address] Care Team Providers Care Artist Agent Name Role Phone Unavailable Primary Care Provider Unavailabl e Encounter Details Date Type Department Care Team (Latest Contact Info) Description 08/30/2001 Outpatient Historical [address] [phone] Viviana Delgadillo MD [address], [address] Attention deficit disorder with hyperactivity(314.01 ) (Primary Dx) Social History Tobacco Use Types Packs/Day Years Used Date Smoking Tobacco: Never Assessed Comments Unknown Sex and Gender Information Value Date Recorded Sex Assigned at Not on file 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
--- OUTSIDE RECORDS SUMMARY | 2025-09-10 18:48 | XMS_ITS | Encounter Summary ---
Author Organization [facility] Address [address] [place] [address] Care Team Providers Care Instructional Material Director Name Role Phone Franck Baltazar MD Primary Care Provider [phone] Reason for Visit * Auth/Cert (Routine) Specialty Diagnoses / Procedures Referred By Contac t Referred To Contact Rehabilitation Marielena Carbajal MD [address] [address] Phone: tel: fax: [facility] [address] [place] [phone] Phone: tel: fax: Referral ID Status Reason Start Date Expiration Date Visits Re quested Visits Authorized [id number] 1 1 Encounter Details Date Type Department Care Team (Late st Contact Info) Description 07/31/2025 Hospital Encounter [facility] [address] [place] [phone] Marielena Carbajal MD [address] [address] Social History Tobacco Use Types [...] on file Legal Sex Female 8:29 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 Gender Identity Not on file Sexual Orientation Not on file documented as of this encounter Plan of Treatment Upcoming Encounters Date Type Department Care Team (Late st Contact Info) Description 11/28/2025 10:00 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 Office Visit [facility] [address] [address] Viktoria Ding, MARKETING EDITOR [address] [address] documented as of this encounter Visit Diagnoses Not on filedocumented in this encounter Care Teams Instructional Material Director Relationship Specialty Start Date End Date Franck Baltazar MD [address] [address] PCP - General Family Practice 10/13/21 documented as of this encounter
--- OUTSIDE RECORDS SUMMARY | 2025-09-10 18:48 | XMS_ITS | Encounter Summary ---
Author Organization [facility] Address [address] [place] [address] Care Team Providers Care Braiding Machine Operator Name Role Phone Unavailable Primary Care Provider Unavailabl e Encounter Details Date Type Department Care Team (Latest Contact Info) Description 09/26/2002 Outpatient Historical [address] [phone] Viviana Delgadillo MD [address] [place] [address], [address] ACUTE URI NOS (Primary Dx); ALLERGIC RHINITIS NOS; DERMATITIS NOS Social History Tobacco Use Types Packs/Day Years Used Date Smoking Tobacco: Never Assessed Comments Unknown Sex and Gender Information Value Date Recorded Sex Assigned at Not on file 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
--- OUTSIDE RECORDS SUMMARY | 2025-09-10 18:48 | XMS_ITS | Encounter Summary ---
Author Organization [facility] Address [address] [place] [address] Care Team Providers Care Manager Ethics Name Role Phone Unavailable Primary Care Provider Unavailabl e Encounter Details Date Type Department Care Team (Latest Contact Info) Description 12/18/2002 Outpatient Historical [facility] [address], [place] [phone] Jose Caicedo MD [address] [place] [phone] ATTN DEFICIT W HYPERACT (Primary Dx); SPRAIN OF ANKLE NOS Social History Tobacco Use Types Packs/Day Years Used Date Smoking Tobacco: Never Assessed Comments Unknown Sex and Gender Information Value Date Recorded Sex Assigned at Not on file 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
--- OUTSIDE RECORDS SUMMARY | 2025-09-10 18:48 | XMS_ITS | Encounter Summary ---
Author Organization [facility] Address [address] [place] [address] Care Team Providers Care Director Inpatient Headache Program Name Role Phone Unavailable Primary Care Provider Unavailabl e Encounter Details Date Type Department Care Team (Latest Contact Info) Description 12/17/2002 Outpatient Historical [facility] Medicine [place] [address] [phone] Joan Ortiz MD [address] [place] [address] VACCINE FOR DISEASE NEC (Primary Dx) Social History Tobacco Use Types Packs/Day Years Used Date Smoking Tobacco: Never Assessed Comments Unknown Sex and Gender Information Value Date Recorded Sex Assigned at Not on file 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
--- OUTSIDE RECORDS SUMMARY | 2025-09-10 18:48 | XMS_ITS | Encounter Summary ---
Author Organization [facility] Address [address] [place] [address] Care Team Providers Care Paper Winder Name Role Phone Unavailable Primary Care Provider Unavailabl e Encounter Details Date Type Department Care Team (Latest Contact Info) Description 12/22/2004 Outpatient Historical [facility] [place] [address] [phone] Jess Perez, [facility] [address] [place] [address] ATTN DEFICIT W HYPERACT (Primary Dx); OPPOSITIONAL DEFIANT DISORDER Social History Tobacco Use Types Packs/Day Years Used Date Smoking Tobacco: Never Assessed Comments Unknown Sex and Gender Information Value Date Recorded Sex Assigned at Not on file 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
--- OUTSIDE RECORDS SUMMARY | 2025-09-10 18:48 | XMS_ITS | Encounter Summary ---
Author Organization [facility] Address [address] [place] [address] Care Team Providers Care Gamemaster Name Role Phone Franck Baltazar MD Primary Care Provider [phone] [phone] Reason for Referral * Physical Therapy (Routine) - Open Specialty Diagnoses / Procedures Referred By Dov joyce Referred To Contact Physical Therapy Diagnoses Bulging lumbar disc Osteoarthritis of spine with radiculopathy, lumbar region Viktoria Ding FNP [address] [address] Phone: tel: fax: [facility] [place] [address] [address] Phone: tel: fax: Referral ID Status Reason Start Date Expiration Date Visits Re quested Visits Authorized [id number] Open 09/05/2025 09/06/2026 6 6 Encounter Details Date Type Department Care Team (Late st Contact Info) Description 09/05/2025 Orders Only [facility] Family [facility] [place] [address] [address] Viktoria Ding FNP [address] [address] Bulging lumbar disc (Primary Dx); Osteoarthritis of spine with radiculopathy, lumbar region Social History Tobacco Use Types Packs/Day Years [...] on file 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 Sex Female 8:29 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 Gender Identity Not on file Sexual Orientation Not on file documented as of this encounter Plan of Treatment Upcoming Encounters Date Type Department Care Team (Late st Contact Info) Description 11/28/2025 10:00 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 ASSIST Office Visit [facility] [address] [address] Viktoria Ding FNP [address] [address] Scheduled Referrals Name Type Priority Associated Diagnoses Orde r Schedule AMB REFERRAL TO PHYSICAL THERAPY Outpatient Referral Routine Bulging lumbar disc Osteoarthritis of spine with radiculopathy, lumbar region Ordered: 09/05/2025 documented as of this encounter Visit Diagnoses Diagnosis Bulging lumbar disc- Primary Displacement of lumbar intervertebral disc without myelopathy Osteoarthritis of spine with radiculopathy, lumbar region documented in this encounter Care Teams Gamemaster Relationship Specialty Start Date End Date Franck Baltazar MD [address] [phone] PCP - General Family Practice 10/13/21 documented as of this encounter
--- OUTSIDE RECORDS SUMMARY | 2025-09-10 18:48 | XMS_ITS | Encounter Summary ---
Author Organization [facility] Address [address] [place] [address] Care Team Providers Care Ethnographic Materials Conservator Name Role Phone Unavailable Primary Care Provider Unavailabl e Encounter Details Date Type Department Care Team (Latest Contact Info) Description 06/19/2002 Outpatient Historical [address] [phone] Viviana Delgadillo MD [address], [address] ATTN DEFICIT W HYPERACT (Primary Dx); VACCINE FOR DISEASE NEC Social History Tobacco Use Types Packs/Day Years Used Date Smoking Tobacco: Never Assessed Comments Unknown Sex and Gender Information Value Date Recorded Sex Assigned at Not on file 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
--- OUTSIDE RECORDS SUMMARY | 2025-09-10 18:48 | XMS_ITS | Encounter Summary ---
Author Organization [facility] Address [address] [place] [address] Care Team Providers Care Nursing Home Assistant Administrator Name Role Phone Unavailable Primary Care Provider Unavailabl e Encounter Details Date Type Department Care Team (Latest Contact Info) Description 01/05/2005 Outpatient Historical [facility] Medicine [place] [address] [place] [address] [phone] Jess Perez, [facility] [address] [place] [address] ATTN DEFICIT W HYPERACT (Primary Dx); OPPOSITIONAL DEFIANT DISORDER Social History Tobacco Use Types Packs/Day Years Used Date Smoking Tobacco: Never Assessed Comments Unknown Sex and Gender Information Value Date Recorded Sex Assigned at Not on file 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
--- OUTSIDE RECORDS SUMMARY | 2025-09-10 18:48 | XMS_ITS | Encounter Summary ---
Author Organization [facility] Address [address] [place] [address] Care Team Providers Care Utility Bill Collector Name Role Phone Unavailable Primary Care Provider Unavailabl e Encounter Details Date Type Department Care Team (Latest Contact Info) Description 11/30/[address] 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
--- OUTSIDE RECORDS SUMMARY | 2025-09-10 18:49 | XMS_ITS | Encounter Summary ---
Author Organization [facility] Address [address] [place] [address] Care Team Providers Care Belt Builder Name Role Phone Franck Baltazar MD Primary Care Provider [phone] Encounter Details Date Type Department Care Team ([facility] Contact Info) Description 09/08/2025 Abstract [facility] [address] [address] Provider, Abstract NO ADDRESS ON [...] on file Legal Sex Female 8:29 AM CNC OPERATOR Gender Identity Not on file Sexual Orientation Not on file documented as of this encounter Plan of Treatment Upcoming Encounters Date Type Department Care Team ([facility] Contact Info) Description 11/28/2025 10:00 AM CNC OPERATOR Office Visit [facility] [address] [address] Viktoria Ding FNP [address] [phone] documented as of this encounter Visit Diagnoses Not on filedocumented in this encounter Care Teams Belt Builder Relationship Specialty Start Date End Date Franck Baltazar MD [address] [address] PCP - General Family Practice 10/13/21 documented as of this encounter
--- OUTSIDE RECORDS SUMMARY | 2025-09-10 18:49 | XMS_ITS | Encounter Summary ---
Author Organization [facility] Address [address] [place] [address] Care Team Providers Care Guide Cruise Name Role Phone Unavailable Primary Care Provider Unavailabl e Encounter Details Date Type Department Care Team (Latest Contact Info) Description 03/09/2005 Outpatient Historical [facility] Medicine [place] [address] [phone] Jess Perez, [facility] [address] [place] [address] ATTN DEFICIT W HYPERACT (Primary Dx); OPPOSITIONAL DEFIANT DISORDER Social History Tobacco Use Types Packs/Day Years Used Date Smoking Tobacco: Never Assessed Comments Unknown Sex and Gender Information Value Date Recorded Sex Assigned at Not on file 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
--- OUTSIDE RECORDS SUMMARY | 2025-09-10 18:49 | XMS_ITS | Encounter Summary ---
Author Organization [facility] Address [address] [place] [address] Care Team Providers Care Wanigan Clerk Name Role Phone Franck Baltazar MD Primary Care Provider [phone] Encounter Details Date Type Department Care Team ([facility] Contact Info) Description 09/02/2025 External Device Data [facility] ABSTRACTION Provider, Abstract NO ADDRESS ON FILE Social [...] on file Legal Sex Female 8:29 AM METAL LATHER Gender Identity Not on file Sexual Orientation Not on file documented as of this encounter Plan of Treatment Upcoming Encounters Date Type Department Care Team (Late Contact Info) Description 11/28/2025 10:00 AM METAL LATHER Office Visit [facility] Family Medicine [place] [address] [phone] Viktoria Ding FNP [address] [address] documented as of this encounter Visit Diagnoses Not on filedocumented in this encounter Care Teams Wanigan Clerk Relationship Specialty Start Date End Date Franck Baltazar MD [address] [phone] PCP - General Family Practice 10/13/21 documented as of this encounter
[2025-09-10 18:55] LABS: Alanine Aminotransferase 36 U/L (0-33); Albumin Level 4.2 g/dL (3.5-5.2); Alkaline Phosphatase 86 U/L (35-105); Anion Gap 21.0 (5-19); Aspartate Amino Transferase 25 U/L (0-32); Blood Urea Nitrogen 10 mg/dL (6-20); Calcium 9.3 mg/dL (8.5-10.5); Carbon Dioxide 22 mmol/L (22-29); Chloride 96 mmol/L (98-107); Creatinine Clr Calc Pharmacy 145.1202; Globulin 3.3 g/dL (1.3-4.6); Glucose 238 mg/dL (65-115); Lipase 52 U/L (13-60); Osmolality Calculated 287 mOsm/kg (285-295); Potassium 4.0 mmol/L (3.5-5.1); Sodium 135 mmol/L (136-145); Total Protein 7.5 g/dL (6.6-8.7)
[2025-09-10 18:58] LABS: HCG, Serum Qual Negative (Negative)
[2025-09-10] MEDS: iohexol 350 mg/mL 500 mL Btl (per mL) IV (19:17)
[2025-09-10 19:19] LABS: Glucose Urine UA Negative (Normal); Nitrate Urine Negative (Negative); Specific Gravity, Urine 1.024 (1.005-1.030)
[2025-09-10 19:24] LABS: Add Urine Microscopic? YES
[2025-09-10] MEDS: ondansetron 2 mg/ML SDV 2 mL 4 MG IVP (21:06)
[2025-09-10 22:01] VITALS: BP 133/79; PULSE 67; RESP 14; O2SAT 96
== END 2025-09-10 22:03 | disposition home or self-care (01) ==
PROVIDERS: Emergency Medicine; Emergency Provider Physician Assistant; PCP Family Medicine
DX: R10.33 Periumbilical pain (principal); K59.01 Slow transit constipation; E11.9 Type 2 diabetes mellitus without complications
CPT/HCPCS: 36415; 74177; 80053; 81001; 83690; 84703; 85025; 96361; 96374; 99285; J2405; J7120